=== PATIENT | female | born 1960 | race Caucasian/White ===

== ENCOUNTER 2017-10-27 15:38 | Emergency (ER) | payer MEDICAID ==
--- NOTE | 2017-10-27 16:25 | EDM.PDOC ---
ED HPI GENERAL MEDICAL PROBLEM - General Chief Complaint: Head Injury Stated Complaint: HEAD AND SHOULDER INJURY Time Seen by Provider: 10/27/17 15:38 Source of Information: Reports: Patient History Limitations: Reports: Physical Impairment - History of Present Illness INITIAL COMMENTS - FREE TEXT/NARRATIVE: 57 y.o.w.f came to the ed 2 days after she fell onto her left shoulder and right forehead without LOC. Pt take Oxycodon 3 time daily for other body aches. Is allergic to Motrin. No N/V/D or any other medical issues. She can not lift her left arm above the horizontal line, not able to tough her heard with her left hand. No other acute medical issues. BP 144/75 RR 17 Pulse ox 100% Temp 36.7 pulse 71. Onset Date: 10/24/17 Onset Time: 08:00 Duration: Day(s): Location: Reports: Face, Chest Quality: Reports: Ache, Burning, Dull, Pressure Severity: Mild Improves with: Reports: Rest Worsens with: Reports: Movement Context: Reports: Trauma Associated Symptoms: Reports: No Other Symptoms left shoulder and left knee Pain Score (Numeric/FACES): 8 - Related Data Allergies Allergy/AdvReac Type Severity Reaction Status Date / Time scopolamine Allergy Intermediate Rash Verified 10/27/17 17:20 tramadol Allergy Intermediate Swelling Verified 10/27/17 17:20 adhesive Allergy Mild red itchy Verified 10/27/17 17:20 ibuprofen [From Advil] Allergy Mild Swelling Verified 10/27/17 17:20 Home Meds: Home Meds Albuterol [Ventolin HFA] 2 puff INH Q6H PRN 11/29/12 [History] Calcium Carbonate/Vitamin D3 [Calcium 600 + Vit D Tablet] 1 tab PO DAILY [History] Cholecalciferol (Vitamin D3) [Vitamin D3] 1 tab PO DAILY 11/29/12 [History] DULoxetine HCl [Cymbalta] 60 mg PO DAILY 11/29/12 [History] Fluticasone/Salmeterol [Advair 500-50] 1 puff INH BID 11/29/12 [History] Lisinopril 10 mg PO DAILY 11/29/12 [History] Magnesium Oxide 500 mg PO BID 11/29/12 [History] Multivitamin [Multi-Vitamin Daily] 1 each PO DAILY 11/29/12 [History] Vit/Iron Fumarate/FA [ Tablet] 1 each PO DAILY 11/29/12 [ History] diphenhydrAMINE HCl [Diphenhydramine HCl] 25 mg PO BEDTIME PRN 11/29/12 [History ] Cyclobenzaprine [Flexeril] 10 mg PO TID 10/19/13 [History] Gabapentin [Neurontin] 400 mg PO DAILY 10/19/13 [History] Naratriptan [Amerge] 2.5 mg PO ASDIRECTED PRN 10/19/13 [History] traZODone 200 mg PO BEDTIME 10/19/13 [History] cephALEXin [Keflex] 500 mg PO Q8H #30 cap 12/05/13 [Rx] oxyCODONE HCl/Acetaminophen [oxyCODONE-Acetaminophen 5-325] 1 tab PO BID [History] Past Medical History - Past Health History Medical/Surgical History: Denies Medical/Surgical History ED ROS GENERAL - Review of Systems Review Of Systems: See Below Constitutional: Reports: No Symptoms HEENT: Reports: Other (head injury 3 days ago) Respiratory: Reports: No Symptoms Cardiovascular: Reports: No Symptoms Endocrine: Reports: No Symptoms GI/Abdominal: Reports: No Symptoms : Reports: No Symptoms Musculoskeletal: Reports: No Symptoms Skin: Reports: No Symptoms Neurological: Reports: No Symptoms Psychiatric: Reports: No Symptoms Hematologic/Lymphatic: Reports: No Symptoms Immunologic: Reports: No Symptoms ED EXAM, HEAD INJURY - Physical Exam Exam: See Below Exam Limited By: No Limitations General Appearance: Alert, WD/WN, Mild Distress Head: Normocephalic, Scalp Ecchymosis Eyes: Bilateral Eye: Normal Inspection Ears: Normal External Exam, Normal Canal, Hearing Grossly Normal, Normal TMs Nose: Normal Inspection, Normal Mucousa, No Blood Throat/Mouth: Normal Inspection, Normal Lips, Normal Gums, Normal Oropharynx, Normal Voice, No Airway Compromise Neck: Non-Tender, Full Range of Motion, Normal Alignment, Normal Inspection Respiratory: No Respiratory Distress, Lungs Clear, Normal Breath Sounds, No Accessory Muscle Use, Chest Non-Tender Cardiovascular: Normal Peripheral Pulses, Regular Rate, Rhythm, No Edema, No Gallop, No JVD, No Murmur, No Rub GI/Abdominal Exam: Normal Bowel Sounds, Soft, Non-Tender, No Organomegaly, No Distention, No Abnormal Bruit, No Mass, Pelvis Stable (Female) Exam: Deferred Rectal (Female) Exam: Deferred Back Exam: Normal Inspection Extremities: Normal Inspection, Limited Range of Motion (of left shoulder, does no go above the horizonal line) 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 Pt take Oxycodon 3 time daily for other body aches. Is allergic to Motrin. No N/V/D or any other medical issues. She can not lift her left arm above the horizontal line, not able to tough her heard with her left hand. No other acute medical issues. BP 144/75 RR 17 Pulse ox 100% Temp 36.7 pulse 71. PE: WNWD W F with left shoulder pain with LROM, right forehead SQ hematoma, minimal Imaging: Left Shoulder: NAD Impression: Left shoulder pain after a fall, poss rotator cuff injury Tx: ICE, Pt currently taking Oxycodon for chronic pain (home), [place] Reexam: Improved Plan: D/C with instruction Last Recorded V/S: Last Vital Signs Temp 36.8 C 10/27/17 15:40 Pulse 69 10/27/17 16:15 Resp 18 10/27/17 17:05 BP 131/74 10/27/17 17:05 Pulse Ox 100 10/27/17 17:05 Departure - Departure Time of Disposition: 16:59 Disposition: Home, Self-Care 01 Condition: Good Clinical Impression: Fall, Head injury Shoulder pain, left Qualifiers: Chronicity: unspecified Qualified Code(s): M25.512 - Pain in left shoulder - Discharge Information *PRESCRIPTION DRUG MONITORING PROGRAM REVIEWED*: Yes *COPY OF PRESCRIPTION DRUG MONITORING REPORT IN PATIENT MALINA: Yes Instructions: Shoulder Pain, [id number] Referrals: [facility] OTOLARYNGOLOGY NURSE [Primary Care Provider] - Forms: ED Department Discharge Additional Instructions: Please apply ice to the affected area for 20-30 minutes 4-6 times per day, please follow up with your regular MD for further evaluation and possible MRI left shoulder to rule out rotator cough injury. Please come back if your symptoms get worse acutely
[2017-10-27 17:08] VITALS: BP 131/74
--- NOTE | 2017-10-28 11:07 | CR ---
INDICATION: Fall - trauma. LEFT SHOULDER, COMPLETE: Four images of the left shoulder were obtained, 2017, in three projections and were compared with 01/21/2014, revealing interval surgery with an anchor in the humeral metaphysis. Overall demineralization is suggested, which may be on the basis of osteoporosis but should be correlated clinically. The AC and glenohumeral joints appear to be intact. A fracture or dislocation was not identified. IMPRESSION: 1. No acute fracture or dislocation. 2. Possible osteoporosis - correlate clinically. 3. Postsurgical change. MTDD
== END 2017-10-27 17:18 | disposition home or self-care (01) ==
LOC: FB.ED 15:38
DX: S09.90XA Unspecified injury of head, initial encounter (principal); S00.83XA Contusion of other part of head, initial encounter; S00.03XA Contusion of scalp, initial encounter; M25.512 Pain in left shoulder; Z79.899 Other long term (current) drug therapy; Z88.5 Allergy status to narcotic agent; Z88.6 Allergy status to analgesic agent; Z91.09 Other allergy status, other than to drugs and biological substances; Z88.8 Allergy status to other drugs, medicaments and biological substances; W19.XXXA Unspecified fall, initial encounter
CPT/HCPCS: 73030-LT; 99283

== ENCOUNTER 2019-11-15 23:35 | Inpatient (IN) | payer MEDICAID ==
[2019-11-16] MEDS ORDERED: Morphine 4 MG/ML VIAL IVPUSH ONE (00:12)
[2019-11-16] MEDS ORDERED: Ondansetron 4 MG/2 ML SDV IVPUSH ONE ×2 (00:12→01:07)
[2019-11-16] MEDS ORDERED: Sodium Chloride 0.9% 1,000 ML IV SCH (00:15)
--- NOTE | 2019-11-16 00:16 | EDM.PDOC ---
ED HPI GENERAL MEDICAL PROBLEM - General Chief Complaint: Abdominal Pain Time Seen by Provider: 11/16/19 00:14 Source of Information: Reports: Patient History Limitations: Reports: No Limitations - History of Present Illness INITIAL COMMENTS - FREE TEXT/NARRATIVE: Olga is a 59 yo female who presented with sudden onset of lower abdominal pain and vomiting. Started about 2 hrs prior to arrival. Unable to keep anything down,and nothing is helping.She was brought in buy [facility].She has a previous surgical history that includes Gastric bypass,cholecystectomy Abdomen Pain Score (Numeric/FACES): 10 - Related Data Allergies Allergy/AdvReac Type Severity Reaction Status Date / Time scopolamine Allergy Intermediate Rash Verified 10/27/17 17:20 tramadol Allergy Intermediate Swelling Verified 10/27/17 17:20 adhesive Allergy Mild red itchy Verified 10/27/17 17:20 ibuprofen [From Advil] Allergy Mild Swelling Verified 10/27/17 17:20 Home Meds: Home Meds Albuterol [Ventolin HFA] 2 puff INH Q6H PRN 11/29/12 [History] Fluticasone/Salmeterol [Advair 500-50] 1 puff INH BID 11/29/12 [History] Lisinopril 40 mg PO DAILY 11/29/12 [History] Multivitamin [Multi-Vitamin Daily] 1 each PO DAILY 11/29/12 [History] Vit/Iron Fum/Folic AC [ Tablet] 1 each PO DAILY 11/29/12 [H istory] diphenhydrAMINE HCL [Diphenhydramine HCl] 25 mg PO BID PRN 11/29/12 [History] Acetaminophen 1,000 mg PO Q8HR PRN 11/16/19 [History] Calcium Carb, Citrate/Vit D3 [Calcium + D3 ER Tablet] 1,200 mg PO DAILY 11/16/19 [History] Cholecalciferol (Vitamin D3) [Vitamin D] 2,000 units PO DAILY 11/16/19 [History] Citalopram Hydrobromide [Celexa] 20 mg PO DAILY 11/16/19 [History] Doxepin HCl [Doxepin] 100 mg PO DAILY 11/16/19 [History] EPINEPHrine [Epinephrine] 0.3 mg IM ONETIME PRN 11/16/19 [History] Famotidine 20 mg PO BID 11/16/19 [History] Lidocaine [Salonpas] 4 patch TOP DAILY PRN 11/16/19 [History] Magnesium Oxide [Magnesium] 500 mg PO BID 11/16/19 [History] Milnacipran [Savella] 75 mg PO BID 11/16/19 [History] Montelukast [Singulair] 10 mg PO DAILY 11/16/19 [History] Morphine [MS Contin] 15 mg PO DAILY 11/16/19 [History] Onabotulinumtoxina [Botox Cosmetic] 100 unit IM ASDIRECTED 11/16/19 [History] Oxybutynin Chloride [Ditropan Xl] 10 mg PO DAILY 11/16/19 [History] Phentermine HCl 15 mg PO DAILY 11/16/19 [History] oxyCODONE HCl/Acetaminophen [Percocet 10-325 mg Tablet] 1 tab PO Q8H PRN 11/16/19 [History] tiZANidine [Zanaflex] 4 mg PO DAILY PRN 11/16/19 [History] Past Medical History - Past Health History Medical/Surgical History: Denies Medical/Surgical History HEENT History: Reports: 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 Social & Family History - Family History Family Medical History: Noncontributory - Caffeine Use Caffeine Use: Reports: Coffee, Soda ED ROS GENERAL - Review of Systems Review Of Systems: Comprehensive ROS is negative, except as noted in HPI. ED EXAM, GI/ABD - Physical Exam Exam: See Below Exam Limited By: No Limitations General Appearance: Alert, WD/WN Eyes: Bilateral: Normal Appearance, EOMI Throat/Mouth: Normal Inspection Head: Atraumatic Neck: Normal Inspection Respiratory/Chest: No Respiratory Distress Course - Vital Signs Last Recorded V/S: Last Vital Signs Temp 98.2 F 11/16/19 00:05 Pulse 97 11/16/19 03:30 Resp 18 11/16/19 03:30 BP 139/85 11/16/19 03:30 Pulse Ox 98 11/16/19 03:30 - Orders/Labs/Meds Orders: Active Orders 24 hr Category Date Time Status Patient Status [ADT] Routine ADT 11/16/19 02:44 Active Intake and Output [RC] 06,14,22 Care 11/16/19 02:45 Active Oxygen Therapy [RC] PRN Care 11/16/19 02:44 Active VTE/DVT Education [RC] Per Unit Routine Care 11/16/19 02:44 Active Vital Signs [RC] 00,04,08,12,16,20 Care 11/16/19 02:44 Active Nothing per Oral After Midnight Diet [DIET] Diet 11/16/19 Breakfast Active Abdomen Pelvis w Cont [CT] Stat Exams 11/16/19 00:12 Taken UA W/MICROSCOPIC [URIN] Stat Lab 11/16/19 00:12 Ordered HYDROmorphone [Dilaudid] Med 11/16/19 02:44 Active 0.5 mg IVPUSH Q2H PRN Ondansetron [Zofran] Med 11/16/19 02:44 Active 4 mg IV Q4H PRN Sodium Chloride 0.9% [Normal Saline] 1,000 ml Med 11/16/19 00:15 Active IV ASDIRECTED Sodium Chloride 0.9% [Normal Saline] 1,000 ml Med 11/16/19 02:45 Active IV ASDIRECTED Resuscitation Status Routine Resus Stat 11/16/19 02:44 Ordered Medication Orders Hydromorphone HCl (Dilaudid) 0.5 mg IVPUSH Q2H PRN PRN Reason: Pain (severe 7-10) Last Admin: 11/16/19 06:16 Dose: 0.5 mg Documented by: JACQUI Sodium Chloride (Normal Saline) 1,000 mls @ 150 mls/hr IV ASDIRECTED [facility] Last Admin: 11/16/19 00:30 Dose: 150 mls/hr Documented by: VALENTINE Sodium Chloride (Normal Saline) 1,000 mls @ 125 mls/hr IV ASDIRECTED [facility] Ondansetron HCl (Zofran) 4 mg IV Q4H PRN PRN Reason: Nausea/Vomiting Last Admin: 11/16/19 06:16 Dose: 4 mg Documented by: JACQUI Labs: Laboratory Tests 11/16/19 11/16/19 11/16/19 Range/Units 00:45 00:45 00:45 WBC 19.0 H (4.5-12.0) X10-3/uL RBC 4.91 (3.23-5.20) x10(6)uL Hgb 14.9 (11.5-15.5) g/dL Hct 46.2 (30.0-51.3) % MCV 94.1 (80-96) fL MCH 30.4 (27.7-33.6) pg MCHC 32.3 (32.2-35.4) g/dL RDW 12.6 (11.5-15.5) % Plt Count 291 (125-369) X10(3)uL MPV 8.9 (7.4-10.4) fL Add Manual Diff Yes Neutrophils % (Manual) 76 (46-82) % Band Neutrophils % 4 (0-6) % Lymphocytes % (Manual) 15 (13-37) % Monocytes % (Manual) 5 (4-12) % Sodium 144 (135-145) mmol/L Potassium 3.3 L (3.5-5.3) mmol/L Chloride 104 (100-110) mmol/L Carbon Dioxide 27 (21-32) mmol/L BUN 28 H (7-18) mg/dL Creatinine 1.0 (0.55-1.02) mg/dL Est Cr Clr Drug Dosing TNP Estimated GFR (MDRD) 57 L (>60) BUN/Creatinine Ratio 28.0 H (9-20) Glucose 194 H (80-116) mg/dL Calcium 9.6 (8.6-10.2) mg/dL Total Bilirubin 0.4 (0.1-1.3) mg/dL AST 43 H (5-25) IU/L ALT 66 H (12-36) U/L Alkaline Phosphatase 170 H (56-112) IU/L C-Reactive Protein < 0.2 L (0.5-0.9) mg/dL Total Protein 7.9 (6.0-8.0) g/dL Albumin 4.1 (3.2-4.6) g/dL Globulin 3.8 g/dL Albumin/Globulin Ratio 1.1 Lipase > 1500 H (73-393) U/L SARS Virus RNA (PCR) (NEGATIVE) 11/16/19 Range/Units 02:47 WBC (4.5-12.0) X10-3/uL RBC (3.23-5.20) x10(6)uL Hgb (11.5-15.5) g/dL Hct (30.0-51.3) % MCV (80-96) fL MCH (27.7-33.6) pg MCHC (32.2-35.4) g/dL RDW (11.5-15.5) % Plt Count (125-369) X10(3)uL MPV (7.4-10.4) fL Add Manual Diff Neutrophils % (Manual) (46-82) % Band Neutrophils % (0-6) % Lymphocytes % (Manual) (13-37) % Monocytes % (Manual) (4-12) % Sodium (135-145) mmol/L Potassium (3.5-5.3) mmol/L Chloride (100-110) mmol/L Carbon Dioxide (21-32) mmol/L BUN (7-18) mg/dL Creatinine (0.55-1.02) mg/dL Est Cr Clr Drug Dosing Estimated GFR (MDRD) (>60) BUN/Creatinine Ratio (9-20) Glucose (80-116) mg/dL Calcium (8.6-10.2) mg/dL Total Bilirubin (0.1-1.3) mg/dL AST (5-25) IU/L ALT (12-36) U/L Alkaline Phosphatase (56-112) IU/L C-Reactive Protein (0.5-0.9) mg/dL Total Protein (6.0-8.0) g/dL Albumin (3.2-4.6) g/dL Globulin g/dL Albumin/Globulin Ratio Lipase (73-393) U/L SARS Virus RNA (PCR) Negative (NEGATIVE) Meds: Medications Generic Name Dose Route Start Last Admin Trade Name Freq PRN Reason Stop Dose Admin Hydromorphone HCl 0.5 mg 11/16/19 02:44 11/16/19 06:16 Dilaudid IVPUSH 0.5 mg Q2H PRN Administration Pain (severe 7-10) Sodium Chloride 1,000 mls @ 150 mls/hr 11/16/19 00:15 11/16/19 00:30 Normal Saline IV 150 mls/hr ASDIRECTED ANT Administration Sodium Chloride 1,000 mls @ 125 mls/hr 11/16/19 02:45 Normal Saline IV ASDIRECTED ANT Ondansetron HCl 4 mg 11/16/19 02:44 11/16/19 06:16 Zofran IV 4 mg Q4H PRN Administration Nausea/Vomiting Discontinued Medications Generic Name Dose Route Start Last Admin Trade Name Dawitq PRN Reason Stop Dose Admin Diatrizoate Meglum/Diatrizoate Sod 30 ml 11/16/19 00:19 Gastrografin 37% PO 11/16/19 00:20 . DIRECTED ONE Hydromorphone HCl 2 mg 11/16/19 01:07 11/16/19 01:21 Dilaudid IVPUSH 11/16/19 01:08 2 mg ONETIME ONE Administration Iopamidol 100 ml 11/16/19 00:19 11/16/19 01:49 Isovue-370 (76%) IV 11/16/19 00:20 85 ml . DIRECTED ONE Administration Morphine Sulfate 4 mg 11/16/19 00:12 11/16/19 00:33 Morphine IVPUSH 11/16/19 00:13 4 mg ONETIME ONE Administration Ondansetron HCl 4 mg 11/16/19 00:12 11/16/19 00:33 Zofran IVPUSH 11/16/19 00:13 4 mg ONETIME ONE Administration Ondansetron HCl 4 mg 11/16/19 01:07 11/16/19 01:21 Zofran IVPUSH 11/16/19 01:08 4 mg ONETIME ONE Administration Departure - Departure Time of Disposition: 06:34 Disposition: Still A Patient 30 Clinical Impression: Small bowel obstruction - Discharge Information Sepsis Event Note (ED) - Evaluation Sepsis Screening Result: No Definite Risk - Focused Exam Vital Signs: Vital Signs Temp Pulse Resp BP Pulse Ox Pulse Ox 11/16/19 02:15 97 96 11/16/19 02:12 89 L 11/16/19 01:54 105 H 27 H 157/71 H 97 11/16/19 01:27 28 H 151/100 H 92 L 11/16/19 00:05 98.2 F 80 25 H 159/103 H 100 - Problem List & Annotations (1) Small bowel obstruction SNOMED Code(s): 164951686 Code(s): K56.609 - UNSP INTESTNL OBST, UNSP TO PARTIAL VERSUS COMPLETE OBST Status: Acute Current Visit: Yes (2) Elevated lipase SNOMED Code(s): 415366436 Code(s): R74.8 - ABNORMAL LEVELS OF OTHER SERUM ENZYMES Status: Acute Current Visit: Yes - Problem List Review Problem List Initiated/Reviewed/Updated: Yes - My Orders Last 24 Hours: My Active Orders 11/16/19 00:12 Abdomen Pelvis w Cont [CT] Stat UA W/MICROSCOPIC [URIN] Stat 11/16/19 00:15 Sodium Chloride 0.9% [Normal Saline] 1,000 ml IV ASDIRECTED 11/16/19 02:44 Patient Status [ADT] Routine Oxygen Therapy [RC] PRN VTE/DVT Education [RC] Per Unit Routine Vital Signs [RC] 00,04,08,12,16,20 HYDROmorphone [Dilaudid] 0.5 mg IVPUSH Q2H PRN Ondansetron [Zofran] 4 mg IV Q4H PRN Resuscitation Status Routine 11/16/19 02:45 Intake and Output [RC] 06,14,22 Sodium Chloride 0.9% [Normal Saline] 1,000 ml IV ASDIRECTED 11/16/19 Breakfast Nothing per Oral After Midnight Diet [DIET] - Assessment/Plan Last 24 Hours: My Active Orders 11/16/19 00:12 Abdomen Pelvis w Cont [CT] Stat UA W/MICROSCOPIC [URIN] Stat 11/16/19 00:15 Sodium Chloride 0.9% [Normal Saline] 1,000 ml IV ASDIRECTED 11/16/19 02:44 Patient Status [ADT] Routine Oxygen Therapy [RC] PRN VTE/DVT Education [RC] Per Unit Routine Vital Signs [RC] 00,04,08,12,16,20 HYDROmorphone [Dilaudid] 0.5 mg IVPUSH Q2H PRN Ondansetron [Zofran] 4 mg IV Q4H PRN Resuscitation Status Routine 11/16/19 02:45 Intake and Output [RC] 06,14,22 Sodium Chloride 0.9% [Normal Saline] 1,000 ml IV ASDIRECTED 11/16/19 Breakfast Nothing per Oral After Midnight Diet [DIET] Plan: CT showed partial small bowel obstruction. Will admit for NG tube,NPO and Fluid resuscitation. I consulted Dr Garcia.IV Zofran and Dilaudid for pain control
[2019-11-16] MEDS ORDERED: Diatrizoate Meglumine/Diatrizoate Sodium 37% 30 ML Bottle PO ONE (00:19)
[2019-11-16] MEDS ORDERED: Iopamidol 755 Mg/ML 100 ML Bottle IV ONE (00:19)
[2019-11-16] MEDS ORDERED: HYDROmorphone 2 MG/ML SDV IVPUSH ONE (01:07)
[2019-11-16] MEDS: Ondansetron 4 MG/2 ML SDV IV PRN ×5 (06:16→22:58)
[2019-11-16] MEDS: HYDROmorphone 2 MG/ML SDV IVPUSH PRN ×5 (06:16→22:51)
[2019-11-16] MEDS: Sodium Chloride 0.9% 1,000 ML IV SCH ×2 (08:56→18:13)
[2019-11-16] MEDS: Pantoprazole 40 MG Vial IVPUSH SCH (13:44)
[2019-11-16] MEDS: Sodium Chloride 0.9% 10 ML Syringe FLUSH PRN ×2 (14:16→23:03)
--- NOTE | 2019-11-16 18:32 | HP ---
ADMISSION DATE: 11/16/2019 REASON FOR ADMISSION: Complicated abdominal pain, bowel obstruction. HISTORY OF PRESENT ILLNESS: Olga Grossman is a 59-year-old female admitted through [facility] on the morning of 11/16/2019. Admitted with complicated abdominal pain. Had a peculiar spicy piece of steak and began with severe complicated abdominal pain. The pain was epigastric, severe, vacillating, and problematic in nature. She was seen by the ER physician, found to have a small-bowel obstruction, admitted to the hospital for treatment and intervention. Traveled by ambulance from [place]. Has been seen by Dr. Jorgito Garcia in the interim. MEDICATIONS: Present daily medications include, 1. Albuterol 2 puffs q.i.d. p.r.n. 2. Calcium plus vitamin D3. 3. Citalopram 20 mg 1 p.o. daily. 4. Diphenhydramine 25 b.i.d. 5. Doxepin 100 mg p.o. at bedtime, sleep enhancement. 6. Famotidine 20 mg 1 p.o. b.i.d. GERD. 7. Advair 50/500 one puff b.i.d. 8. Lisinopril 40 mg p.o. daily blood pressure. 9. Magnesium oxide 500 mg 1 p.o. daily nutrition. 10.Savella 75 mg b.i.d. 11.Singulair 10 mg 1 p.o. at bedtime asthma. 12.Morphine 50 mg daily chronic pain. 13.Oxybutynin 10 mg 1 p.o. daily bladder. 14.Percocet 10/325 one q.8 hours p.r.n. for pain. 15.Phentermine 50 mg 1 p.o. daily weight loss. 16. vitamin 1 p.o. daily nutrition. 17.Zanaflex 4 mg p.o. q.12 muscle relaxant. ALLERGIES: Scopolamine patch, tramadol, adhesives, and Advil. PAST MEDICAL HISTORY: Significant for previous gastric bypass surgery, incidental cholecystectomy, previous neck surgery for unstable neck, bilateral shoulder surgery, and spur removal in right foot. Fractures none. Chronic illnesses noted above. GYNECOLOGICAL HISTORY: 3, para 3 female, lost one baby with stillborn. SOCIAL HISTORY: Resides in [place]. Lives with 60 years of age. 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 Nonsmoker. Secondhand smoke. No alcohol. No illicit drug use. REVIEW OF SYSTEMS: CONSTITUTIONAL: Please see HPI. EYES: Sees well. Wears corrective eyeglasses. OROPHARYNX: Upper plates. CV: Denies chest pain, palpitation, or dyspnea. RESPIRATORY: No chronic cough, wheeze, or congestion. GI: Please see HPI. : Mild bladder control. SKIN: No lesions, eruptions, or moles. ENDOCRINE: No excessive thirst or urination. ALLERGIES: Noted. NEUROLOGIC: Denies headache. Does have chronic fatigue syndrome, fibromyalgia. PHYSICAL EXAMINATION: VITAL SIGNS: Stable and documented. GENERAL: Young lady, cooperative, conversant, gives a good history. HEENT: Funduscopic benign. Bright TMs. Clear nasal discharge. Mouth and oropharynx clear. NECK: Benign. Thyroid small. Surgical scar on right side. CHEST: Clear in all lung noyola. No adventitious sounds. HEART: No ectopy or murmur. ABDOMEN: Upper quadrant surgical scar well healed. No hepatosplenomegaly. Tender epigastric. Decreased bowel sounds. and RECTAL: Differed. EXTREMITIES: Well perfused. NEUROMUSCULAR: Intact. LABORATORY STUDIES: White count 19,100, repeat 13,600. Normal differential. Electrolytes satisfactory. GFR 57, went to 60. Moderately elevated liver functions, AST, ALT, alkaline phosphatase. Lipase of 1500. CT abdomen by report, bowel obstruction. ASSESSMENT: Acute bowel obstruction, likely adhesive disease. PLAN: Continue conservative therapy. NG had been placed, discontinued by Dr. Garcia. Continue IV fluids. Ice chips to be allowed. We will repeat pancreatic enzymes. /[id number] /ADAM
--- NOTE | 2019-11-16 18:40 | CONS ---
DATE OF CONSULTATION: 11/16/2019 HISTORY OF PRESENT ILLNESS: This 59-year-old female was brought to the emergency room last night by ambulance after developing rather sudden onset of mid abdominal pain. She had some episodes of vomiting associated with this. She was noted to have significant abdominal tenderness upon presentation and was evaluated with a CT scan of the abdomen and pelvis. Findings were felt consistent with a partial mid small-bowel obstruction, not related to the regions of her previous surgery of gastric bypass. The patient currently states that her abdominal pain has improved by about 50% since admission. She is no longer having nausea or the desire to vomit. She has had 2 bowel movements since she has been in the hospital and states that she is passing flatus. Pain remains primarily in the mid abdomen, but somewhat diffuse and it is a constant pain. Other diagnostic data includes laboratory studies with admitting serum white blood cell count of 19,000, but a few hours later this was repeated and noted to be down to 13,600. Her hemoglobin is stable. BUN is slightly elevated. Liver functions are mildly elevated, but her lipase was markedly elevated at greater than 15,000. PAST MEDICAL HISTORY: Includes prior surgeries to include gastric bypass, but also prior cholecystectomy. She carries diagnoses of chronic back pain and fibromyalgia. MEDICATIONS: Reviewed and as identified in her electronic medical record. FAMILY HISTORY: Noncontributory. REVIEW OF SYSTEMS: Shows no recent problems with shortness of breath or cough. No unexplained fever. The patient has generally not been having any GI concerns recently. She does note that just before this pain started she ate chicken fried steak, which she has never had before. PHYSICAL EXAMINATION: VITAL SIGNS: Temperature is 97.4, blood pressure is 139/85, pulse 97, weight is 226 pounds. GENERAL: The patient is an adult female, in no acute distress. HEENT: Head is normocephalic. No scleral icterus. No cervical masses. HEART: Regular with occasional ectopic beat. LUNGS: Clear. ABDOMEN: Shows mild distention. There is diffuse tenderness to direct palpation, most significant in the central portion of the abdomen. I do not feel any abdominal masses. EXTREMITIES: Show no calf tenderness or ankle edema. IMPRESSION: 1. Partial small bowel obstruction, likely secondary to adhesions. 2. History of gastric bypass. 3. Fibromyalgia. 4. Elevated lipase. RECOMMENDATIONS: Advised observation with continued IV hydration and encourage the patient to ambulate. NG tube output has been minimal as expected with gastric bypass, and as this has been very uncomfortable for her and the patient has demonstrated bowel function while she has been in the hospital, we will remove the NG tube and have her remain n.p.o. /[id number] HOOD/ADAM
[2019-11-17] MEDS: HYDROmorphone 2 MG/ML SDV IVPUSH PRN ×5 (02:33→21:29)
[2019-11-17] MEDS: Sodium Chloride 0.9% 1,000 ML IV SCH ×3 (02:36→19:21)
[2019-11-17] MEDS: Ondansetron 4 MG/2 ML SDV IV PRN ×2 (02:58→08:59)
[2019-11-17] MEDS: Pantoprazole 40 MG Vial IVPUSH SCH (08:06)
--- NOTE | 2019-11-17 12:16 | PCM.SURGPN ---
- General Info Date of Service: 11/17/19 Admission Diagnosis/Problem: Abdominal pain Functional Status: Reports: Other (pain a little better today but still persists) - Review of Systems Pulmonary: Reports: No Symptoms Gastrointestinal: Reports: Flatus, Nausea (gets nausea with Dilaudid IV), Vomiting (some emesis last night), Other (has passed several stools including loose stool this am) Genitourinary: Reports: No Symptoms Neurological: Reports: Other (still c/o headache) - Patient Data Vitals - Most Recent: Last Vital Signs Temp 98.7 F 11/17/19 07:40 Pulse 53 L 11/17/19 07:40 Resp 18 11/17/19 07:40 BP 142/76 H 11/17/19 07:40 Pulse Ox 94 L 11/17/19 07:40 Weight - Most Recent: 227 lb 14.4 oz I&O - Last 24 Hours: Intake & Output 11/16/19 11/17/19 11/17/19 22:59 06:59 14:59 Intake Total 1831 888 Output Total 200 200 Balance 1631 688 Lab Results Last 24 Hrs: Laboratory Results - last 24 hr 11/17/19 11/17/19 11/17/19 Range/Units 06:15 06:15 06:15 WBC 11.0 (4.5-12.0) X10-3/uL RBC 4.88 (3.23-5.20) x10(6)uL Hgb 14.8 (11.5-15.5) g/dL Hct 46.3 (30.0-51.3) % MCV 94.8 (80-96) fL MCH 30.4 (27.7-33.6) pg MCHC 32.1 L (32.2-35.4) g/dL RDW 12.7 (11.5-15.5) % Plt Count 246 (125-369) X10(3)uL Amylase 21 L (25-115) U/L Lipase 67 L (73-393) U/L Med Orders - Current: Current Medications Famotidine (Pepcid) 20 mg IVPUSH BID ANT Hydromorphone HCl (Dilaudid) 0.5 mg IVPUSH Q2H PRN PRN Reason: Pain (severe 7-10) Last Admin: 11/17/19 09:35 Dose: 0.5 mg Documented by: Sodium Chloride (Normal Saline) 1,000 mls @ 150 mls/hr IV ASDIRECTED [facility] Last Admin: 11/16/19 00:30 Dose: 150 mls/hr Documented by: Sodium Chloride (Normal Saline) 1,000 mls @ 125 mls/hr IV ASDIRECTED [facility] Last Admin: 11/17/19 11:01 Dose: 125 mls/hr Documented by: Ondansetron HCl (Zofran) 4 mg IV Q4H PRN PRN Reason: Nausea/Vomiting Last Admin: 11/17/19 08:59 Dose: 4 mg Documented by: Pantoprazole Sodium (Protonix Iv) 40 mg IVPUSH DAILY [facility] Last Admin: 11/17/19 08:06 Dose: 40 mg Documented by: Sodium Chloride (Saline Flush) 10 ml FLUSH ASDIRECTED PRN PRN Reason: IV Use Last Admin: 11/16/19 23:03 Dose: 10 ml Documented by: Discontinued Medications Diatrizoate Meglum/Diatrizoate Sod (Gastrografin 37%) 30 ml PO . DIRECTED ONE Stop: 11/16/19 00:20 Last Admin: 11/16/19 14:29 Dose: Not Given Documented by: Hydromorphone HCl (Dilaudid) 2 mg IVPUSH ONETIME ONE Stop: 11/16/19 01:08 Last Admin: 11/16/19 01:21 Dose: 2 mg Documented by: Iopamidol (Isovue-370 (76%)) 100 ml IV . DIRECTED ONE Stop: 11/16/19 00:20 Last Admin: 11/16/19 01:49 Dose: 85 ml Documented by: Morphine Sulfate (Morphine) 4 mg IVPUSH ONETIME ONE Stop: 11/16/19 00:13 Last Admin: 11/16/19 00:33 Dose: 4 mg Documented by: Ondansetron HCl (Zofran) 4 mg IVPUSH ONETIME ONE Stop: 11/16/19 00:13 Last Admin: 11/16/19 00:33 Dose: 4 mg Documented by: Ondansetron HCl (Zofran) 4 mg IVPUSH ONETIME ONE Stop: 11/16/19 01:08 Last Admin: 11/16/19 01:21 Dose: 4 mg Documented by: - Exam General: Alert Lungs: Normal Respiratory Effort GI/Abdominal Exam: Soft, Tender Physical Findings Comment:: X-ray of abdomen shows minimal small bowel gas without significant air fluid levels. Defunctionalized stomach has gas distension Sepsis Event Note - Evaluation Sepsis Screening Result: No Definite Risk - Focused Exam Vital Signs: Vital Signs Temp Pulse Resp BP Pulse Ox 11/17/19 07:40 98.7 F 53 L 18 142/76 H 94 L 11/17/19 05:00 98.4 F 81 20 138/77 96 11/17/19 02:00 98.7 F 73 18 146/74 H 96 - Problem List Review Problem List Initiated/Reviewed/Updated: Yes - My Orders Last 24 Hours: Active Orders 24 hr Category Date Time Status Abdomen 2V AP Flat Upright [CR] Routine Exams 11/17/19 08:56 Taken Famotidine [Pepcid] Med 11/17/19 21:00 Active 20 mg IVPUSH BID Pantoprazole [ProTONIX IV] Med 11/16/19 14:00 Active 40 mg IVPUSH DAILY Medication Orders Famotidine (Pepcid) 20 mg IVPUSH BID [facility] Hydromorphone HCl (Dilaudid) 0.5 mg IVPUSH Q2H PRN PRN Reason: Pain (severe 7-10) Last Admin: 11/17/19 09:35 Dose: 0.5 mg Documented by: Admin: 11/17/19 05:52 Dose: 0.5 mg Documented by: Admin: 11/17/19 02:33 Dose: 0.5 mg Documented by: Admin: 11/16/19 22:51 Dose: 0.5 mg Documented by: Admin: 11/16/19 19:31 Dose: 0.5 mg Documented by: Admin: 11/16/19 14:14 Dose: 0.5 mg Documented by: Admin: 11/16/19 10:16 Dose: 0.5 mg Documented by: Admin: 11/16/19 06:16 Dose: 0.5 mg Documented by: JACQUI Sodium Chloride (Normal Saline) 1,000 mls @ 150 mls/hr IV ASDIRECTED ANT Last Admin: 11/16/19 00:30 Dose: 150 mls/hr Documented by: VALENTINE Sodium Chloride (Normal Saline) 1,000 mls @ 125 mls/hr IV ASDIRECTED [facility] Last Admin: 11/17/19 11:01 Dose: 125 mls/hr Documented by: Infusion: 11/17/19 10:36 Dose: 125 mls/hr Documented by: Admin: 11/17/19 02:36 Dose: 125 mls/hr Documented by: Infusion: 11/17/19 02:13 Dose: 125 mls/hr Documented by: Admin: 11/16/19 18:13 Dose: 125 mls/hr Documented by: Infusion: 11/16/19 16:56 Dose: 125 mls/hr Documented by: Admin: 11/16/19 08:56 Dose: 125 mls/hr Documented by: ALICE Ondansetron HCl (Zofran) 4 mg IV Q4H PRN PRN Reason: Nausea/Vomiting Last Admin: 11/17/19 08:59 Dose: 4 mg Documented by: Admin: 11/17/19 02:58 Dose: 4 mg Documented by: Admin: 11/16/19 22:58 Dose: 4 mg Documented by: Admin: 11/16/19 18:52 Dose: 4 mg Documented by: Admin: 11/16/19 14:15 Dose: 4 mg Documented by: Admin: 11/16/19 10:16 Dose: 4 mg Documented by: Admin: 11/16/19 06:16 Dose: 4 mg Documented by: JACQUI Pantoprazole Sodium (Protonix Iv) 40 mg IVPUSH DAILY [facility] Last Admin: 11/17/19 08:06 Dose: 40 mg Documented by: Admin: 11/16/19 13:44 Dose: 40 mg Documented by: ISAC Sodium Chloride (Saline Flush) 10 ml FLUSH ASDIRECTED PRN PRN Reason: IV Use Last Admin: 11/16/19 23:03 Dose: 10 ml Documented by: Admin: 11/16/19 14:16 Dose: 10 ml Documented by: ISAC - Assessment Assessment (Free Text/Narrative):: Abdominal pain - SBO component appears to be resolving with return of GI function Possible peptic ulcer as patient admits to increased NSAID use recently Labs (including Lipase) have returned to normal - Plan Plan (Free Text/Narrative):: Gave small amount of clear liquids at patient request On anti ulcer medication encouraged ambulation
[2019-11-17] MEDS: Menthol/Methyl Salicylate 85 GM Tube TOP PRN ×2 (15:31→21:29)
[2019-11-17] MEDS: Famotidine 20 MG/2 ML SDV IVPUSH SCH (21:28)
[2019-11-18] MEDS: Sodium Chloride 0.9% 1,000 ML IV SCH ×3 (03:30→20:44)
[2019-11-18] MEDS: HYDROmorphone 2 MG/ML SDV IVPUSH PRN ×2 (03:42→12:55)
[2019-11-18] MEDS: Famotidine 20 MG/2 ML SDV IVPUSH SCH ×2 (09:09→22:00)
--- NOTE | 2019-11-18 11:04 | PCM.SURGPN ---
- General Info Date of Service: 11/18/19 Admission Diagnosis/Problem: Abdominal pain Functional Status: Reports: Other (Pain much improved and now minimal) - Review of Systems Pulmonary: Reports: No Symptoms Cardiovascular: Reports: No Symptoms Gastrointestinal: Reports: Flatus, Other (continues to pass stools including some bile color) Genitourinary: Reports: No Symptoms Neurological: Reports: Other (More awake and conversive today) - Patient Data Vitals - Most Recent: Last Vital Signs Temp 98.0 F 11/18/19 04:00 Pulse 86 11/18/19 04:00 Resp 16 11/18/19 04:00 BP 131/64 11/18/19 04:00 Pulse Ox 98 11/18/19 04:00 Weight - Most Recent: 227 lb 14.4 oz I&O - Last 24 Hours: Intake & Output 11/17/19 11/18/19 11/18/19 22:59 06:59 14:59 Intake Total 338 1067 Output Total 100 350 Balance 238 717 Med Orders - Current: Current Medications Famotidine (Pepcid) [address] [facility] Last Admin: 11/18/19 09:09 Dose: 20 mg Documented by: Hydromorphone HCl (Dilaudid) 0.5 mg IVPUSH Q2H PRN PRN Reason: Pain (severe 7-10) Last Admin: 11/18/19 03:42 Dose: 0.5 mg Documented by: Sodium Chloride (Normal Saline) 1,000 mls @ 150 mls/hr IV ASDIRECTED [facility] Last Admin: 11/16/19 00:30 Dose: 150 mls/hr Documented by: Sodium Chloride (Normal Saline) 1,000 [facility]ls [facility] Admin: 11/18/19 03:30 Dose: 125 mls/hr Documented by: Methyl Salicylate (Icy Hot Cream) 0 gm TOP BID PRN PRN Reason: BACK PAIN Last Admin: 11/17/19 21:29 Dose: 1 applic Documented by: Ondansetron HCl (Zofran) 4 mg IV Q4H PRN PRN Reason: Nausea/Vomiting Last Admin: 11/17/19 08:59 Dose: 4 mg Documented by: Sodium Chloride (Saline Flush) 10 ml FLUSH ASDIRECTED PRN PRN Reason: IV Use Last Admin: 11/16/19 23:03 Dose: 10 ml Documented by: Discontinued Medications Diatrizoate Meglum/Diatrizoate Sod (Gastrografin 37%) 30 ml PO . DIRECTED ONE Stop: 11/16/19 00:20 Last Admin: 11/16/19 14:29 Dose: Not Given Documented by: Hydromorphone HCl (Dilaudid) 2 mg IVPUSH ONETIME ONE Stop: 11/16/19 01:08 Last Admin: 11/16/19 01:21 Dose: 2 mg Documented by: Iopamidol (Isovue-370 (76%)) 100 ml IV . DIRECTED ONE Stop: 11/16/19 00:20 Last Admin: 11/16/19 01:49 Dose: 85 ml Documented by: Morphine Sulfate (Morphine) 4 mg IVPUSH ONETIME ONE Stop: 11/16/19 00:13 Last Admin: 11/16/19 00:33 Dose: 4 mg Documented by: Ondansetron HCl (Zofran) 4 mg IVPUSH ONETIME ONE Stop: 11/16/19 00:13 Last Admin: 11/16/19 00:33 Dose: 4 mg Documented by: Ondansetron HCl (Zofran) 4 mg IVPUSH ONETIME ONE Stop: 11/16/19 01:08 Last Admin: 11/16/19 01:21 Dose: 4 mg Documented by: Pantoprazole Sodium (Protonix Iv) 40 mg IVPUSH DAILY ANT Last Admin: 11/17/19 08:06 Dose: 40 mg Documented by: - Exam General: Alert, Oriented Lungs: Normal Respiratory Effort Extremities: Normal Inspection Sepsis Event Note - Evaluation Sepsis Screening Result: No Definite Risk - Focused Exam Vital Signs: Vital Signs Temp Pulse Resp BP Pulse Ox 11/18/19 04:00 98.0 F 86 16 131/64 98 - Problem List Review Problem List Initiated/Reviewed/Updated: Yes - My Orders Last 24 Hours: Active Orders 24 hr Category Date Time Status Full Liquid Diet [DIET] Diet 11/18/19 Lunch Active Famotidine [Pepcid] Med 11/17/19 21:00 Active 20 mg IVPUSH BID Menthol/Methyl Salicylate [Icy Hot Cream] Med 11/17/19 12:46 Active 0 gm TOP BID PRN Medication Orders Famotidine (Pepcid) [address] [facility] Last Admin: 11/18/19 09:09 Dose: 20 mg Documented by: Admin: 11/17/19 21:28 Dose: 20 mg Documented by: LESTER Hydromorphone HCl (Dilaudid) 0.5 mg IVPUSH Q2H PRN PRN Reason: Pain (severe 7-10) Last Admin: 11/18/19 03:42 Dose: 0.5 mg Documented by: Admin: 11/17/19 21:29 Dose: 0.5 mg Documented by: Admin: 11/17/19 15:15 Dose: 0.5 mg Documented by: Admin: 11/17/19 09:35 Dose: 0.5 mg Documented by: Admin: 11/17/19 05:52 Dose: 0.5 mg Documented by: Admin: 11/17/19 02:33 Dose: 0.5 mg Documented by: Admin: 11/16/19 22:51 Dose: 0.5 mg Documented by: Admin: 11/16/19 19:31 Dose: 0.5 mg Documented by: Admin: 11/16/19 14:14 Dose: 0.5 mg Documented by: Admin: 11/16/19 10:16 Dose: 0.5 mg Documented by: Admin: 11/16/19 06:16 Dose: 0.5 mg Documented by: JACQUI Sodium Chloride (Normal Saline) 1,000 mls @ 150 mls/hr IV ASDIRECTED [facility] Last Admin: 11/16/19 00:30 Dose: 150 mls/hr Documented by: VALENTINE Sodium Chloride (Normal Saline) 1,000 mls @ 125 mls/hr IV ASDIRECTED [facility] Last Admin: 11/18/19 03:30 Dose: 125 mls/hr Documented by: Infusion: 11/18/19 03:21 Dose: 125 mls/hr Documented by: Admin: 11/17/19 19:21 Dose: 125 mls/hr Documented by: Infusion: 11/17/19 19:01 Dose: 125 mls/hr Documented by: Admin: 11/17/19 11:01 Dose: 125 mls/hr Documented by: Infusion: 11/17/19 10:36 Dose: 125 mls/hr Documented by: Admin: 11/17/19 02:36 Dose: 125 mls/hr Documented by: Infusion: 11/17/19 02:13 Dose: 125 mls/hr Documented by: Admin: 11/16/19 18:13 Dose: 125 mls/hr Documented by: Infusion: 11/16/19 16:56 Dose: 125 mls/hr Documented by: Admin: 11/16/19 08:56 Dose: 125 mls/hr Documented by: ALICE Methyl Salicylate (Icy Hot Cream) 0 gm TOP BID PRN PRN Reason: BACK PAIN Last Admin: 11/17/19 21:29 Dose: 1 applic Documented by: Admin: 11/17/19 15:31 Dose: 1 applic Documented by: ISAC Ondansetron HCl (Zofran) 4 mg IV Q4H PRN PRN Reason: Nausea/Vomiting Last Admin: 11/17/19 08:59 Dose: 4 mg Documented by: Admin: 11/17/19 02:58 Dose: 4 mg Documented by: Admin: 11/16/19 22:58 Dose: 4 mg Documented by: Admin: 11/16/19 18:52 Dose: 4 mg Documented by: Admin: 11/16/19 14:15 Dose: 4 mg Documented by: Admin: 11/16/19 10:16 Dose: 4 mg Documented by: Admin: 11/16/19 06:16 Dose: 4 mg Documented by: JACQUI Sodium Chloride (Saline Flush) 10 ml FLUSH ASDIRECTED PRN PRN Reason: IV Use Last Admin: 11/16/19 23:03 Dose: 10 ml Documented by: Admin: 11/16/19 14:16 Dose: 10 ml Documented by: ISAC - Assessment Assessment (Free Text/Narrative):: Abdominal Pain improving and now tolerating small amounts of PO liquids Feels stronger but still weak - Plan Plan (Free Text/Narrative):: increase diet to full liquids increase ambulation
--- NOTE | 2019-11-18 13:11 | PN ---
DATE SEEN: 11/17/2019 SUBJECTIVE: Olga Grossman is a 59-year-old female admitted with acute bowel obstruction. Seen both radiographically and by exam. Pain appears to be better controlled. Nausea and vomiting persists, cramps and discomfort. She has had some gas and stool. PHYSICAL EXAMINATION: VITAL SIGNS: Stable. HEENT: Mouth and oropharynx, normal mucous membranes. NECK: Benign. Thyroid small. CHEST: Clear in all lung noyola. HEART: No ectopy or murmur. ABDOMEN: A little bit of distention. Decreased bowel sounds. Generally tender. ASSESSMENT: Bowel obstruction is partial. PLAN: Continue supportive management, tolerating absence of NG. Dr. Garcia will continue to follow. /[id number] BIENVENIDO/ADAM
--- NOTE | 2019-11-18 13:13 | PN ---
DATE SEEN: 11/18/2019 SUBJECTIVE: Continued abdominal pain. Ms. Grossman is a 59-year-old female with acute bowel obstruction, likely related to adhesive disease. Had a pretty good night. Is being followed by Dr. Garcia. Diet was advanced accordingly. Plain radiographs on 11/17/2019 revealed no significant air-fluid levels and absence of gas. OBJECTIVE: VITAL SIGNS: Stable. NECK: Benign. Thyroid small. CHEST: Clear in all lung noyola. HEART: No ectopy or murmur. ABDOMEN: Little less distended, little less tender. Bowel obstruction improving. PLAN: Await Dr. Garcia's recommendations. /[id number] /ADAM
[2019-11-18] MEDS: Ondansetron 4 MG/2 ML SDV IV PRN (14:48)
[2019-11-18] MEDS: Menthol/Methyl Salicylate 85 GM Tube TOP PRN (21:06)
[2019-11-19] MEDS: HYDROmorphone 2 MG/ML SDV IVPUSH PRN ×2 (03:58→08:49)
[2019-11-19] MEDS: Sodium Chloride 0.9% 10 ML Syringe FLUSH PRN (04:00)
[2019-11-19] MEDS: Sodium Chloride 0.9% 1,000 ML IV SCH (04:48)
[2019-11-19] MEDS: Famotidine 20 MG/2 ML SDV IVPUSH SCH (09:14)
[2019-11-19 09:23] VITALS: BP 142/72; PULSE 87
--- NOTE | 2019-11-19 10:27 | PCM.SURGPN ---
- General Info Date of Service: 11/19/19 Admission Diagnosis/Problem: Abdominal pain Functional Status: Reports: Pain Controlled (denies abdominal pain at this time) - Review of Systems Pulmonary: Reports: No Symptoms Gastrointestinal: Reports: Flatus, Other (still passing small amounts of loose stools). Denies: Abdominal Pain, Nausea (Now tolerating light diet well) - Patient Data Vitals - Most Recent: Last Vital Signs Temp 97.4 F 11/19/19 08:00 Pulse 87 11/19/19 08:00 Resp 18 11/19/19 08:00 BP 142/72 H 11/19/19 08:00 Pulse Ox 100 11/19/19 08:00 Weight - Most Recent: 233 lb 3 oz I&O - Last 24 Hours: Intake & Output 11/18/19 11/19/19 11/19/19 22:59 06:59 14:59 Intake Total 917 926 Output Total 1000 500 Balance -83 426 Med Orders - Current: Current Medications Famotidine (Pepcid) 20 mg IVPUSH BID [facility] Last Admin: 11/19/19 09:14 Dose: 20 mg Documented by: Hydromorphone HCl (Dilaudid) 0.5 mg IVPUSH Q2H PRN PRN Reason: Pain (severe 7-10) Last Admin: 11/19/19 08:49 Dose: 0.5 mg Documented by: Sodium Chloride (Normal Saline) 1,000 mls @ 150 mls/hr IV ASDIRECTED [facility] Last Admin: 11/16/19 00:30 Dose: 150 mls/hr Documented by: Sodium Chloride (Normal Saline) 1,000 mls @ 125 mls/hr IV ASDIRECTED [facility] Last Admin: 11/19/19 04:48 Dose: 125 mls/hr Documented by: Methyl Salicylate (Icy Hot Cream) 0 gm TOP BID PRN PRN Reason: BACK PAIN Last Admin: 11/18/19 21:06 Dose: 1 applic Documented by: Ondansetron HCl (Zofran) 4 mg IV Q4H PRN PRN Reason: Nausea/Vomiting Last Admin: 11/18/19 14:48 Dose: 4 mg Documented by: Sodium Chloride (Saline Flush) 10 ml FLUSH ASDIRECTED PRN PRN Reason: IV Use Last Admin: 11/19/19 04:00 Dose: 10 ml Documented by: Discontinued Medications Diatrizoate Meglum/Diatrizoate Sod (Gastrografin 37%) 30 ml PO . DIRECTED ONE Stop: 11/16/19 00:20 Last Admin: 11/16/19 14:29 Dose: Not Given Documented by: Hydromorphone HCl (Dilaudid) 2 mg IVPUSH ONETIME ONE Stop: 11/16/19 01:08 Last Admin: 11/16/19 01:21 Dose: 2 mg Documented by: Iopamidol (Isovue-370 (76%)) 100 ml IV . DIRECTED ONE Stop: 11/16/19 00:20 Last Admin: 11/16/19 01:49 Dose: 85 ml Documented by: Morphine Sulfate (Morphine) 4 mg IVPUSH ONETIME ONE Stop: 11/16/19 00:13 Last Admin: 11/16/19 00:33 Dose: 4 mg Documented by: Ondansetron HCl (Zofran) 4 mg IVPUSH ONETIME ONE Stop: 11/16/19 00:13 Last Admin: 11/16/19 00:33 Dose: 4 mg Documented by: Ondansetron HCl (Zofran) 4 mg IVPUSH ONETIME ONE Stop: 11/16/19 01:08 Last Admin: 11/16/19 01:21 Dose: 4 mg Documented by: Pantoprazole Sodium (Protonix Iv) 40 mg IVPUSH DAILY [facility] Last Admin: 11/17/19 08:06 Dose: 40 mg Documented by: - Exam General: Alert, Oriented Lungs: Normal Respiratory Effort GI/Abdominal Exam: Soft, Non-Tender Extremities: Normal Inspection Sepsis Event Note - Evaluation Sepsis Screening Result: No Definite Risk - Focused Exam Vital Signs: Vital Signs Temp Pulse Resp BP Pulse Ox 11/19/19 08:00 97.4 F 87 18 142/72 H 100 11/19/19 04:00 98.2 F 69 16 133/57 L 97 11/19/19 00:00 98.9 F 97 16 136/67 96 - Problem List Review Problem List Initiated/Reviewed/Updated: Yes - My Orders Last 24 Hours: Active Orders 24 hr Category Date Time Status Full Liquid Diet [DIET] Diet 11/18/19 Lunch Active Medication Orders Famotidine (Pepcid) 20 mg IVPUSH BID [facility] Last Admin: 11/19/19 09:14 Dose: 20 mg Documented by: Admin: 11/18/19 22:00 Dose: 20 mg Documented by: Admin: 11/18/19 09:09 Dose: 20 mg Documented by: Admin: 11/17/19 21:28 Dose: 20 mg Documented by: LESTER Hydromorphone HCl (Dilaudid) 0.5 mg IVPUSH Q2H PRN PRN Reason: Pain (severe 7-10) Last Admin: 11/19/19 08:49 Dose: 0.5 mg Documented by: Admin: 11/19/19 03:58 Dose: 0.5 mg Documented by: Admin: 11/18/19 12:55 Dose: 0.5 mg Documented by: Admin: 11/18/19 03:42 Dose: 0.5 mg Documented by: Admin: 11/17/19 21:29 Dose: 0.5 mg Documented by: Admin: 11/17/19 15:15 Dose: 0.5 mg Documented by: Admin: 11/17/19 09:35 Dose: 0.5 mg Documented by: Admin: 11/17/19 05:52 Dose: 0.5 mg Documented by: Admin: 11/17/19 02:33 Dose: 0.5 mg Documented by: Admin: 11/16/19 22:51 Dose: 0.5 mg Documented by: Admin: 11/16/19 19:31 Dose: 0.5 mg Documented by: Admin: 11/16/19 14:14 Dose: 0.5 mg Documented by: Admin: 11/16/19 10:16 Dose: 0.5 mg Documented by: Admin: 11/16/19 06:16 Dose: 0.5 mg Documented by: JACQUI Sodium Chloride (Normal Saline) 1,000 mls @ 150 mls/hr IV ASDIRECTED [facility] Last Admin: 11/16/19 00:30 Dose: 150 mls/hr Documented by: VALENTINE Sodium Chloride (Normal Saline) 1,000 mls @ 125 mls/hr IV ASDIRECTED [facility] Last Admin: 11/19/19 04:48 Dose: 125 mls/hr Documented by: Infusion: 11/19/19 04:48 Dose: 125 mls/hr Documented by: Admin: 11/18/19 20:44 Dose: 125 mls/hr Documented by: Infusion: 11/18/19 20:18 Dose: 125 mls/hr Documented by: Admin: 11/18/19 12:18 Dose: 125 mls/hr Documented by: Infusion: 11/18/19 11:30 Dose: 125 mls/hr Documented by: Admin: 11/18/19 03:30 Dose: 125 mls/hr Documented by: Infusion: 11/18/19 03:21 Dose: 125 mls/hr Documented by: Admin: 11/17/19 19:21 Dose: 125 mls/hr Documented by: Infusion: 11/17/19 19:01 Dose: 125 mls/hr Documented by: Admin: 11/17/19 11:01 Dose: 125 mls/hr Documented by: Infusion: 11/17/19 10:36 Dose: 125 mls/hr Documented by: Admin: 11/17/19 02:36 Dose: 125 mls/hr Documented by: Infusion: 11/17/19 02:13 Dose: 125 mls/hr Documented by: Admin: 11/16/19 18:13 Dose: 125 mls/hr Documented by: Infusion: 11/16/19 16:56 Dose: 125 mls/hr Documented by: Admin: 11/16/19 08:56 Dose: 125 mls/hr Documented by: ALICE Methyl Salicylate (Icy Hot Cream) 0 gm TOP BID PRN PRN Reason: BACK PAIN Last Admin: 11/18/19 21:06 Dose: 1 applic Documented by: Admin: 11/17/19 21:29 Dose: 1 applic Documented by: Admin: 11/17/19 15:31 Dose: 1 applic Documented by: ISAC Ondansetron HCl (Zofran) 4 mg IV Q4H PRN PRN Reason: Nausea/Vomiting Last Admin: 11/18/19 14:48 Dose: 4 mg Documented by: Admin: 11/17/19 08:59 Dose: 4 mg Documented by: Admin: 11/17/19 02:58 Dose: 4 mg Documented by: Admin: 11/16/19 22:58 Dose: 4 mg Documented by: Admin: 11/16/19 18:52 Dose: 4 mg Documented by: Admin: 11/16/19 14:15 Dose: 4 mg Documented by: Admin: 11/16/19 10:16 Dose: 4 mg Documented by: Admin: 11/16/19 06:16 Dose: 4 mg Documented by: JACQUI Sodium Chloride (Saline Flush) 10 ml FLUSH ASDIRECTED PRN PRN Reason: IV Use Last Admin: 11/19/19 04:00 Dose: 10 ml Documented by: Admin: 11/16/19 23:03 Dose: 10 ml Documented by: Admin: 11/16/19 14:16 Dose: 10 ml Documented by: ISAC - Assessment Assessment (Free Text/Narrative):: Abdominal Pain now resolved Partial Small Bowel Obstruction now resolved 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
--- NOTE | 2019-11-19 12:52 | DISCH ---
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 HISTORY OF PRESENT ILLNESS: Olga Grossman is a 59-year-old female admitted through [facility] ER. Presented with increasing abdominal pain, distention, and bloating; had had a peculiar steak meal; was seen and evaluated; found to have small-bowel obstruction and admitted to hospital. On admission, exam was stable. There was abdominal distention, decreased bowel sounds, and decreased GI motility. CAT scan confirmed clinical findings of bowel obstruction. LABORATORY STUDIES: Of significance, white count 19,000, fell to 13.6, and fell to 11. Electrolytes were satisfactory. Low potassium at 3.3, returned normal at 3.7. BUN went from 28 to 23, GFR from 50 to greater than 60. Mildly elevated liver enzymes noted. Lipase greater than 1500, fell to . HOSPITAL COURSE: The patient admitted to hospital for treatment. NG catheter was placed on the initial night but intolerability and lack of output, i.e., previous gastric bypass surgery, decreased need. Dr. Garcia, surgeon, saw her in consultation throughout her hospital stay. Diet was advanced slowly. Bowel activity was improved. Ambulation was successful. At the time of discharge, pain had resolved completely. OBJECTIVE: VITAL SIGNS: At the time of discharge 105 kg, 142/72, 18, 100, and pulse of 80. GENERAL: Appears comfortable. HEENT: Mouth and oropharynx with good hydration. NECK: Benign. CHEST: Clear in all lung noyola. HEART: No ectopy or murmur. ABDOMEN: Much benign. PLAN: The patient will be discharged home. We will add Protonix 40 mg one daily to her home medications. Please see med recon list. Followup appointment with primary in 2 weeks' time. Surgical procedures, none. Consultation with Jorgito Garcia MD, of General Surgery. /[id number] BIENVENIDO/ADAM
[2019-11-20] MEDS ORDERED: Pantoprazole 40 MG Tab.CR PO SCH (06:00)
--- NOTE | 2019-11-20 10:43 | CR ---
INDICATION: Abdominal pain/followup bowel obstruction. ABDOMEN, TWO VIEWS: Six images of the abdomen is supine and upright projections were obtained 11/17/[address] scan of 11/16/19 revealing marked decrease in the number of dilated small bowel loops with only one air-fluid level suggested at this time suggesting resolution of a previous small bowel obstruction or paralytic ileus. This should be correlated clinically. No definite mass lesions, organomegaly or nonvascular pathology calcifications were identified - what likely represents a phlebolith is noted in the left lower pelvis. Mild dextroconvex rotoscoliosis of the lower lumbar spine is noted. IMPRESSION: 1. Marked improvement in the appearance of the abdomen with resolution of previous dilated loops of small bowel with air-fluid levels except for one smaller level at the right flank. 2. 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 3. Exogenous obesity. MTDD
== END 2019-11-19 12:15 | disposition home or self-care (01) | DRG 390 ==
LOC: FB.ED 23:35 → FB.MS 11-16 02:50
PROVIDERS: ADMIT Family Medicine; ATTEND Surgery
PROC: 0D9670Z Drainage of Stomach with Drainage Device, Via Natural or Artificial Opening (ICD-10-PCS; principal; 2019-11-16)
DX: K56.51 Intestinal adhesions [bands], with partial obstruction (principal); Z77.22 Contact with and (suspected) exposure to environmental tobacco smoke (acute) (chronic); G89.29 Other chronic pain; M54.9 Dorsalgia, unspecified; M79.7 Fibromyalgia; R74.8 Abnormal levels of other serum enzymes; Z98.84 Bariatric surgery status; Z79.899 Other long term (current) drug therapy; Z91.048 Other nonmedicinal substance allergy status; Z88.5 Allergy status to narcotic agent; Z88.8 Allergy status to other drugs, medicaments and biological substances; Z90.49 Acquired absence of other specified parts of digestive tract; Z98.890 Other specified postprocedural states; Z88.6 Allergy status to analgesic agent; H54.7 Unspecified visual loss; M19.90 Unspecified osteoarthritis, unspecified site; Z20.828 Contact with and (suspected) exposure to other viral communicable diseases
CPT/HCPCS: 36415; 74019; 74177; 80053; 81001; 82150; 83690; 85025; 85027; 86140; 93005; 96361; 96374; 96375; 96376; 99285-25; A9270-GY; C9113; J1170; J2270; J2405; J3490; J7030; Q9963; Q9967; U0002

== ENCOUNTER 2021-02-07 13:03 | Inpatient (IN) | payer MEDICAID ==
--- NOTE | 2021-02-07 13:56 | EDM.PDOC ---
ED HPI GENERAL MEDICAL PROBLEM - General Chief Complaint: Respiratory Problem Stated Complaint: SOB Time Seen by Provider: 02/07/21 13:50 Source of Information: Reports: Patient History Limitations: Reports: No Limitations - History of Present Illness INITIAL COMMENTS - FREE TEXT/NARRATIVE: 61-year-old female who reports approximately 2 weeks ago she developed nasal congestion and slight cough with sneezing and some malaise. Since then the symptoms have been basically hanging around and over the past week they have worsened with worsening cough and worsening difficulty breathing with increasing weakness. She also has developed pain in her chest with cough and he has generalized body aches as well. Over the past 2 days she has also had progressive weakness and has found it difficult even to move around and move around causing her to become much more short of breath over the past 2 days well. She has had no vomiting or diarrhea. No nausea. Her pain is rated by her as a 4/10. She states she feels miserable. The last 2 days she has lost her voice as well and she has a worsening sore throat. She has not been vaccinated against Covid. She presents to the emergency department via private vehicle with her and her O2 saturations are 88-89% on room air. No dysuria or hematuria. She has had loss of taste and smell sense associated with this illness as well. She has been drinking liquids well but has had no appetite. There are no other associated signs or symptoms. There are no other modifying factors. Onset: Other (2 weeks ago) Duration: Getting Worse (Particularly over the past week and even more so over the past 2 days.) Location: Reports: Chest, Generalized Quality: Reports: Ache, Sharp Severity: Moderate Improves with: Reports: Rest Worsens with: Reports: Breathing, Other (coughing), Movement Context: Reports: Other (As above.) Associated Symptoms: Reports: No Other Symptoms (Except as above.) Treatments ONLINE MEDIA BUYER: Reports: Other (see below) (Nothing.) Chest Pain Score (Numeric/FACES): 2 - Related Data Allergies Allergy/AdvReac Type Severity Reaction Status Date / Time scopolamine Allergy Intermediate Rash Verified 02/07/21 13:38 tramadol Allergy Intermediate Swelling Verified 02/07/21 13:38 adhesive Allergy Mild red itchy Verified 02/07/21 13:38 ibuprofen [From Advil] Allergy Mild Swelling Verified 02/07/21 13:38 Home Meds: Home Meds oxyCODONE HCl/Acetaminophen [Percocet 10-325 mg Tablet] 1 tab PO Q8H PRN 11/16/19 [History] Docusate Sodium 1 cap PO DAILY 02/07/21 [History] Doxepin [SINEquan] 100 mg PO BEDTIME 02/07/21 [History] Fluticasone/Salmeterol [Advair 500-50] 1 puff INH BID 02/07/21 [History] Glucosamine/D3/Boswellia Galina [Osteo Bi-Flex Tablet] 1 tab PO BID 02/07/21 [History] Montelukast [Singulair] 10 mg PO BEDTIME 02/07/21 [History] Morphine [MS Contin] 15 mg PO DAILY PRN 02/07/21 [History] [place]-3S/DHA/Epa/Fish Oil [Fish Oil [place]-3 Softgel] 1 cap PO DAILY 02/07/21 [History] Oxybutynin [Oxybutynin ER] 10 mg PO DAILY 02/07/21 [History] Pantoprazole [ProTONIX] 40 mg PO 06 02/07/21 [History] Venlafaxine [Effexor] 150 mg PO DAILY 02/07/21 [History] hydroCHLOROthiazide [Hydrochlorothiazide] 25 mg PO BEDTIME 02/07/21 [History] lisinopriL [Lisinopril] 40 mg PO DAILY 02/07/21 [History] Past Medical History HEENT History: Reports: Impaired Vision Other HEENT History: Best disease Cardiovascular History: Reports: Arrhythmia, Hypertension Respiratory History: Reports: Asthma, COPD Musculoskeletal History: Reports: Arthritis, Back Pain, Chronic, Fibromyalgia, Other (See Below) Other Musculoskeletal History: 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 Psychiatric History: Reports: Anxiety, Depression Endocrine/Metabolic History: Reports: Obesity/BMI 30+ - Past Surgical History HEENT Surgical History: Reports: Oral Surgery GI Surgical History: Reports: Bariatric Procedure (Gastric bypass), Cholecystectomy Female Surgical History: Reports: Tubal Ligation Neurological Surgical History: Reports: Spinal Fusion, Other (See Below) Other Neurological Surgeries/Procedures: s/p cervical fusion Musculoskeletal Surgical History: Reports: Shoulder Surgery, Other (See Below) Other Musculoskeletal Surgeries/Procedures:: s/p cervical fusion Social & Family History - Family History Cardiac: Reports: Heart Failure Oncologic: Reports: Brain, Lung - Tobacco Use Tobacco Use Status *Q: Unknown Ever Used Tobacco (Nonsmoker) - Caffeine Use Caffeine Use: Reports: Coffee, Soda - Alcohol Use Alcohol Use History: No - Living Situation & Occupation Living situation: Reports: , with Spouse ED ROS GENERAL - Review of Systems Review Of Systems: See Below Constitutional: Reports: Malaise, Weakness, Fatigue. Denies: Fever, Chills HEENT: Reports: Throat Pain, Other (Hoarse voice. Sore throat. Nasal congestion.) Respiratory: Reports: Shortness of Breath, Pleuritic Chest Pain, Cough. Denies: Hemoptysis Cardiovascular: Reports: Chest Pain, Dyspnea on Exertion, Lightheadedness Endocrine: Reports: Fatigue GI/Abdominal: Denies: Nausea, Vomiting : Reports: Other (Decreased urine output). Denies: Dysuria, Hematuria Musculoskeletal: Reports: Other (Generalized body aches) Skin: Denies: Diaphoresis, Rash Neurological: Reports: Dizziness, Headache Hematologic/Lymphatic: Denies: Easy Bleeding, Easy Bruising Immunologic: Reports: Other (Has not been vaccinated against Covid.) ED EXAM, GENERAL - Physical Exam Exam: See Below Exam Limited By: No Limitations General Appearance: Alert, Moderate Distress, Obese, Other (Seems somewhat dyspneic.) Eye Exam: Bilateral Eye: EOMI, Normal Inspection (Sclera are anicteric), PERRL Ears: Normal External Exam, Hearing Grossly Normal Ear Exam: Bilateral Ear: Auricle Normal Nose: No Blood, Nasal Drainage Throat/Mouth: No Airway Compromise, Other (Dry mucous membranes. Hoarse voice. Erythema posteriorly.) Neck: Normal Inspection, Supple, Non-Tender, Full Range of Motion Respiratory/Chest: Respiratory Distress, Rales, Rhonchi, Accessory Muscle Use, Other (Appears dyspneic.) Cardiovascular: Normal Peripheral Pulses, No Murmur, Tachycardia Peripheral Pulses: 2+: Radial (L), Radial (R), Dorsalis Pedis (L), Dorsalis Pedis (R) GI/Abdominal: Normal Bowel Sounds, Soft, Non-Tender, No Mass Back Exam: Normal Inspection Extremities: Normal Inspection, Normal Range of Motion, Non-Tender, No Pedal Edema, Normal Capillary Refill Neurological: Alert, Oriented, CN II-XII Intact, No Motor/Sensory Deficits Psychiatric: Depressed Mood, Flat Affect Skin Exam: Warm, Dry, Intact, Normal Color, No Rash #1 Interpretation EKG Date: 02/07/21 Time: 13:26 Rhythm: NSR Rate (Beats/Min): 97 [place]: LAD-Left [place] Deviation P-Wave: Present QRS: Normal ST-T: Other (LVH with secondary repolarization abnormality.) QT: Normal Comparison: No Change (No significant changes in this EKG compared to EKG performed on 11/16/2019.) Course - Vital Signs Last Recorded V/S: Last Vital Signs Temp 36.9 C 02/07/21 13:10 Pulse 104 H 02/07/21 13:10 Resp 20 02/07/21 13:10 BP 110/77 02/07/21 13:10 Pulse Ox 90 L 02/07/21 13:10 - Orders/Labs/Meds Orders: Active Orders 24 hr Category Date Time Status Patient Status Manage Transfer [TRANSFER] Routine ADT 02/07/21 17:30 Active Patient Status [ADT] Routine ADT 02/07/21 17:13 Active Bedrest Bathroom Privileges [RC] ASDIRECTED Care 02/07/21 17:13 Active Cardiac Monitoring [RC] CONTINUOUS Care 02/07/21 17:15 Active Height and Weight [RC] UPON Care 02/07/21 17:13 Active Intake and Output [RC] QSHIFT Care 02/07/21 17:15 Active Oxygen Therapy [RC] PRN Care 02/07/21 17:13 Active Pulse Oximetry [RC] CONTINUOUS Care 02/07/21 17:16 Active RT Aerosol Therapy [RC] ASDIRECTED Care 02/07/21 17:19 Active Up With Assistance [RC] ASDIRECTED Care 02/07/21 17:13 Active VTE/DVT Education [RC] Per Unit Routine Care 02/07/21 17:13 Active Vital Signs [RC] Q4H Care 02/07/21 17:13 Active Heart Healthy Diet [DIET] Diet 02/07/21 Dinner Ordered Ang Chest [CT] Stat Exams 02/07/21 15:06 Taken BASIC METABOLIC PANEL,BMP [CHEM] AM Lab 02/08/21 05:11 Ordered CBC WITH AUTO DIFF [HEME] AM Lab 02/08/21 05:11 Ordered CULTURE BLOOD [BC] Urgent Lab 02/07/21 14:30 Received CULTURE BLOOD [BC] Urgent Lab 02/07/21 17:05 Received CULTURE URINE [RM] Stat Lab 02/07/21 17:28 Ordered TROPONIN I [CHEM] AM Lab 02/08/21 05:11 Ordered Acetaminophen [TylenoL] Med 02/07/21 17:13 Ordered 650 mg PO Q4H PRN Albuterol/Ipratropium [DuoNeb 3.0-0.5 MG/3 ML] Med 02/07/21 21:00 Ordered 3 ml NEB QIDRT Azithromycin [Zithromax] 500 mg Med 02/07/21 17:30 Ordered Sodium Chloride 0.9% [Normal Saline AdvBag] 250 ml IV Q24H Enoxaparin [Lovenox] Med 02/07/21 17:15 Ordered 40 mg SUBCUT Q24H Ondansetron [Zofran] Med 02/07/21 17:13 Ordered 4 mg IV Q6H PRN Sodium Chloride 0.9% [Normal Saline] 1,000 ml Med 02/07/21 17:15 Ordered IV ASDIRECTED Sodium Chloride 0.9% [Saline Flush] Med 02/07/21 14:16 Active 10 ml FLUSH ASDIRECTED PRN cefTRIAXone [Rocephin] Med 02/08/21 16:30 Ordered 1 gm IVPUSH Q24H dexAMETHasone [Decadron] Med 02/08/21 09:00 Ordered 6 mg IVPUSH DAILY Blood Culture x2 Reflex Set [OM.PC] Urgent Oth 02/07/21 16:38 Ordered Peripheral IV Insertion Adult [OM.PC] Routine Oth 02/07/21 14:16 Ordered Resuscitation Status Routine Resus Stat 02/07/21 17:13 Ordered EKG 12 Lead [EK] Routine Ther 02/07/21 14:16 Ordered Medication Orders Acetaminophen (Acetaminophen 325 Mg Tab) 650 mg PO Q4H PRN PRN Reason: Pain (Mild 1-3)/fever Albuterol/Ipratropium (Albuterol/Ipratropium 3.0-0.5 Mg/3 Ml Neb Soln) 3 ml NEB QIDRT ANT Ceftriaxone Sodium (Ceftriaxone 1 Gm Vial) 1 gm IVPUSH Q24H ANT Dexamethasone (Dexamethasone 4 Mg/Ml Sdv) 6 mg IVPUSH DAILY ANT Enoxaparin Sodium (Enoxaparin 40 Mg/0.4 Ml Syringe) 40 mg SUBCUT Q24H [facility] Sodium Chloride (Normal Saline) 1,000 mls @ 125 mls/hr IV ASDIRECTED ANT Azithromycin 500 mg/ Sodium (Chloride) 250 mls @ 250 mls/hr IV Q24H ANT Ondansetron HCl (Ondansetron 4 Mg/2 Ml Sdv) 4 mg IV Q6H PRN PRN Reason: Nausea/Vomiting Sodium Chloride (Sodium Chloride 0.9% 10 Ml Syringe) 10 ml FLUSH ASDIRECTED PRN PRN Reason: Keep Vein Open Labs: Laboratory Tests 02/07/21 02/07/21 02/07/21 Range/Units 13:45 14:30 14:30 WBC 7.3 (3.0-10.3) x10-3/uL RBC 4.12 (3.60-5.20) x10(6)uL Hgb 12.9 (11.4-15.5) g/dL Hct 37.7 (34.2-48.2) % MCV 91.4 (76.7-100.5) fL MCH 31.2 (23.9-33.9) pg MCHC 34.2 (31.9-34.8) g/dL RDW 13.4 (12.3-16.5) % Plt Count 312 (151-488) x10(3)uL MPV 8.3 (7.1-12.4) fL Neut % (Auto) 72.2 (30.8-76.2) % Lymph % (Auto) 14.4 L (18.4-52.1) % Richardson % (Auto) 11.3 (4.4-15.7) % Eos % (Auto) 1.2 (0.6-8.1) % Baso % (Auto) 0.9 (0.2-1.5) % Neut # (Auto) 5.3 (1.5-6.3) x10-3/uL Lymph # (Auto) 1.0 (1.0-4.4) x10-3/uL Richardson # (Auto) 0.8 (0.3-1.0) x10-3/uL Eos # (Auto) 0.1 (0.0-0.8) x10-3/uL Baso # (Auto) 0.1 (0.0-0.1) x10-3/uL D-Dimer, Quantitative 1.64 H (0.0-0.59) mg/LFEU Sodium (135-145) mmol/L Potassium (3.5-5.3) mmol/L Chloride (100-110) mmol/L Carbon Dioxide (21-32) mmol/L BUN (7-18) mg/dL Creatinine (0.55-1.02) mg/dL Est Cr Clr Drug Dosing mL/min Estimated GFR (MDRD) (>60) BUN/Creatinine Ratio (9-20) Glucose (80-116) mg/dL Lactic Acid (0.4-2.0) mmol/L Calcium (8.6-10.2) mg/dL Magnesium (1.8-2.5) mg/dL Total Bilirubin (0.1-1.3) mg/dL AST (5-25) IU/L ALT (12-36) U/L Alkaline Phosphatase (56-112) IU/L Troponin I (4.0-60.3) pg/mL C-Reactive Protein (0.5-0.9) mg/dL NT-Pro-B Natriuret Pep (<=125) pg/mL Total Protein (6.0-8.0) g/dL Albumin (3.2-4.6) g/dL Globulin g/dL Albumin/Globulin Ratio Urine Color (YELLOW) Urine Appearance (CLEAR) Urine pH (5.0-6.5) Ur Specific [place] (1.010-1.025) Urine Protein (NEGATIVE) mg/dL Urine Glucose (UA) (NORMAL) mg/dL Urine Ketones (NEGATIVE) mg/dL Urine Occult Blood (NEGATIVE) Urine Nitrite (NEGATIVE) Urine Bilirubin (NEGATIVE) Urine Urobilinogen (NEGATIVE) mg/dL Ur Leukocyte Esterase (NEGATIVE) Urine RBC (0-5) Urine WBC (0-5) Ur Squamous Epith Cells (NS,R,O) Urine Bacteria (NS) SARS-CoV-2 RNA (SISI) Positive H (NEGATIVE) 02/07/21 02/07/21 02/07/21 Range/Units 14:30 14:30 14:30 WBC (3.0-10.3) x10-3/uL RBC (3.60-5.20) x10(6)uL Hgb (11.4-15.5) g/dL Hct (34.2-48.2) % MCV (76.7-100.5) fL MCH (23.9-33.9) pg MCHC (31.9-34.8) g/dL RDW (12.3-16.5) % Plt Count (151-488) x10(3)uL MPV (7.1-12.4) fL Neut % (Auto) (30.8-76.2) % Lymph % (Auto) (18.4-52.1) % Richardson % (Auto) (4.4-15.7) % Eos % (Auto) (0.6-8.1) % Baso % (Auto) (0.2-1.5) % Neut # (Auto) (1.5-6.3) x10-3/uL Lymph # (Auto) (1.0-4.4) x10-3/uL Richardson # (Auto) (0.3-1.0) x10-3/uL Eos # (Auto) (0.0-0.8) x10-3/uL Baso # (Auto) (0.0-0.1) x10-3/uL D-Dimer, Quantitative (0.0-0.59) mg/LFEU Sodium 141 (135-145) mmol/L Potassium 3.4 L (3.5-5.3) mmol/L Chloride 104 (100-110) mmol/L Carbon Dioxide 31 (21-32) mmol/L BUN 27 H (7-18) mg/dL Creatinine 1.0 (0.55-1.02) mg/dL Est Cr Clr Drug Dosing 50.37 mL/min Estimated GFR (MDRD) 56 L (>60) BUN/Creatinine Ratio 27.0 H (9-20) Glucose 114 (80-116) mg/dL Lactic Acid 0.8 (0.4-2.0) mmol/L Calcium 9.0 (8.6-10.2) mg/dL Magnesium 2.3 (1.8-2.5) mg/dL Total Bilirubin 0.8 (0.1-1.3) mg/dL AST 63 H D (5-25) IU/L ALT 94 H (12-36) U/L Alkaline Phosphatase 173 H (56-112) IU/L Troponin I 8.5 (4.0-60.3) pg/mL C-Reactive Protein 8.5 H* (0.5-0.9) mg/dL NT-Pro-B Natriuret Pep (<=125) pg/mL Total Protein 7.6 (6.0-8.0) g/dL Albumin 2.7 L (3.2-4.6) g/dL Globulin 4.9 g/dL Albumin/Globulin Ratio 0.6 Urine Color (YELLOW) Urine Appearance (CLEAR) Urine pH (5.0-6.5) Ur Specific [place] (1.010-1.025) Urine Protein (NEGATIVE) mg/dL Urine Glucose (UA) (NORMAL) mg/dL Urine Ketones (NEGATIVE) mg/dL Urine Occult Blood (NEGATIVE) Urine Nitrite (NEGATIVE) Urine Bilirubin (NEGATIVE) Urine Urobilinogen (NEGATIVE) mg/dL Ur Leukocyte Esterase (NEGATIVE) Urine RBC (0-5) Urine WBC (0-5) Ur Squamous Epith Cells (NS,R,O) Urine Bacteria (NS) SARS-CoV-2 RNA (SISI) (NEGATIVE) 02/07/21 02/07/21 Range/Units 14:30 16:35 WBC (3.0-10.3) x10-3/uL RBC (3.60-5.20) x10(6)uL Hgb (11.4-15.5) g/dL Hct (34.2-48.2) % MCV (76.7-100.5) fL MCH (23.9-33.9) pg MCHC (31.9-34.8) g/dL RDW (12.3-16.5) % Plt Count (151-488) x10(3)uL MPV (7.1-12.4) fL Neut % (Auto) (30.8-76.2) % Lymph % (Auto) (18.4-52.1) % Richardson % (Auto) (4.4-15.7) % Eos % (Auto) (0.6-8.1) % Baso % (Auto) (0.2-1.5) % Neut # (Auto) (1.5-6.3) x10-3/uL Lymph # (Auto) (1.0-4.4) x10-3/uL Richardson # (Auto) (0.3-1.0) x10-3/uL Eos # (Auto) (0.0-0.8) x10-3/uL Baso # (Auto) (0.0-0.1) x10-3/uL D-Dimer, Quantitative (0.0-0.59) mg/LFEU Sodium (135-145) mmol/L Potassium (3.5-5.3) mmol/L Chloride (100-110) mmol/L Carbon Dioxide (21-32) mmol/L BUN (7-18) mg/dL Creatinine (0.55-1.02) mg/dL Est Cr Clr Drug Dosing mL/min Estimated GFR (MDRD) (>60) BUN/Creatinine Ratio (9-20) Glucose (80-116) mg/dL Lactic Acid (0.4-2.0) mmol/L Calcium (8.6-10.2) mg/dL Magnesium (1.8-2.5) mg/dL Total Bilirubin (0.1-1.3) mg/dL AST (5-25) IU/L ALT (12-36) U/L Alkaline Phosphatase (56-112) IU/L Troponin I (4.0-60.3) pg/mL C-Reactive Protein (0.5-0.9) mg/dL NT-Pro-B Natriuret Pep 59 (<=125) pg/mL Total Protein (6.0-8.0) g/dL Albumin (3.2-4.6) g/dL Globulin g/dL Albumin/Globulin Ratio Urine Color [place] (YELLOW) Urine Appearance Slightly cloudy (CLEAR) Urine pH 5.0 (5.0-6.5) Ur Specific [place] 1.010 (1.010-1.025) Urine Protein Trace (NEGATIVE) mg/dL Urine Glucose (UA) Normal (NORMAL) mg/dL Urine Ketones Negative (NEGATIVE) mg/dL Urine Occult Blood Trace (NEGATIVE) Urine Nitrite Positive H (NEGATIVE) Urine Bilirubin Negative (NEGATIVE) Urine Urobilinogen 4 H (NEGATIVE) mg/dL Ur Leukocyte Esterase Large H (NEGATIVE) Urine RBC 0-5 (0-5) Urine WBC 20-30 H (0-5) Ur Squamous Epith Cells Few H (NS,R,O) Urine Bacteria Many H (NS) SARS-CoV-2 RNA (SISI) (NEGATIVE) Meds: Medications Generic Name Dose Route Start Last Admin Trade Name Catarina PRN Reason Stop Dose Admin Acetaminophen 650 mg 02/07/21 17:13 Acetaminophen 325 Mg Tab PO Q4H PRN Pain (Mild 1-3)/fever Albuterol/Ipratropium 3 ml 02/07/21 21:00 Albuterol/Ipratropium 3.0-0.5 Mg/3 Ml Neb Soln NEB QIDRT ANT Ceftriaxone Sodium 1 gm 02/08/21 16:30 Ceftriaxone 1 Gm Vial IVPUSH Q24H ANT Dexamethasone 6 mg 02/08/21 09:00 Dexamethasone 4 Mg/Ml Sdv IVPUSH DAILY ANT Enoxaparin Sodium 40 mg 02/07/21 17:15 Enoxaparin 40 Mg/0.4 Ml Syringe SUBCUT Q24H ANT Sodium Chloride 1,000 mls @ 125 mls/hr 02/07/21 17:15 Normal Saline IV ASDIRECTED ANT Azithromycin 500 mg/ Sodium 250 mls @ 250 mls/hr 02/07/21 17:30 Chloride IV Q24H ANT Ondansetron HCl 4 mg 02/07/21 17:13 Ondansetron 4 Mg/2 Ml Sdv IV Q6H PRN Nausea/Vomiting Sodium Chloride 10 ml 02/07/21 14:16 Sodium Chloride 0.9% 10 Ml Syringe FLUSH ASDIRECTED PRN Keep Vein Open Discontinued Medications Generic Name Dose Route Start Last Admin Trade Name Catarina PRN Reason Stop Dose Admin Acetaminophen 1,000 mg 02/07/21 14:19 02/07/21 14:25 Acetaminophen 500 Mg Tab PO 02/07/21 14:20 1,000 mg ONETIME ONE Administration Ceftriaxone Sodium 2 gm 02/07/21 16:40 Ceftriaxone 2 Gm Vial IVPUSH 02/07/21 16:41 ONETIME ONE Dexamethasone 6 mg 02/07/21 16:40 Dexamethasone 4 Mg/Ml Sdv IVPUSH 02/07/21 16:41 ONETIME ONE Sodium Chloride 500 mls @ 999 mls/hr 02/07/21 14:19 02/07/21 14:26 Normal Saline IV 02/07/21 14:49 999 mls/hr .BOLUS ONE Administration Iopamidol 100 ml 02/07/21 15:44 02/07/21 16:03 Iopamidol 755 Mg/Ml 100 Ml Bottle IV 02/07/21 15:45 100 ml . DIRECTED ONE Administration - Radiology Interpretation Free Text/Narrative:: CTA of the chest shows no evidence of PE but there are bilateral coarse ground glass infiltrates consistent with Covid pneumonia. This was per the [facility] radiologist. - Re-Assessments/Exams Free Text/Narrative Re-Assessment/Exam: 02/07/21 15:00: Embolus, 7.3. Hemoglobin is 12.9. Platelet count is normal. Sodium is 141. Potassium is 3.4. Bicarbonate is 31. BUN is 27 and creatinine is 1.0. Glucose is 114. AST and ALT are mildly elevated as is the alkaline phosphatase. The troponin was normal. ProBNP was normal. A d-dimer was 1.64. A CRP was 8. The patient's rapid Covid was positive. The patient has received normal saline 1 L IV bolus and her pulse rate is in the 90s. She does not really feel much better. Her oxygen is still 93-94% on 3 L/m via nasal cannula. I will send the patient for CTA of her chest. 02/07/21 16:40: CTA of the chest showed no evidence of pulmonary emboli. She does have bilateral infiltrates consistent with Covid pneumonia. She is maintaining rest for stable on 3 L/m via nasal cannula. Her mentation remains normal. She feels that she will be able to provide us with urine now. The patient will need admission and I am calling Dr. Bowers for admission. I have discussed all this with the patient and she is in agreement with the plan for admission. I have also discussed CODE STATUS with the patient and she is a FULL CODE. 02/07/21 17:25: I discussed the patient's case with Dr. Bowers and he is in agreement with the plan for admission of the patient. I have placed admission orders and care the patient will be to Dr. Bowers at 7 AM on 02/08/2021. Patient's urine did come back and there was some evidence of UTI. The urine was sent for culture. Been treated with Rocephin grams IV and all orders have been placed and the patient is going to the floor now. Departure - Departure Time of Disposition: 17:13 Disposition: Admitted As Inpatient 65 Condition: Fair Clinical Impression: Pneumonia due to COVID-19 virus, Dehydration, Weakness Bilateral pneumonia Qualifiers: Pneumonia type: due to unspecified organism Lung location: unspecified part of lung Qualified Code(s): J18.9 - Pneumonia, unspecified organism Respiratory failure with hypoxia Qualifiers: Chronicity: acute Qualified Code(s): J96.01 - Acute respiratory failure with hypoxia UTI (urinary tract infection) Qualifiers: Urinary tract infection type: site unspecified Hematuria presence: without hematuria Qualified Code(s): N39.0 - Urinary tract infection, site not specified - Discharge Information Referrals: Tea Britton [employer] TECHNICIAN [Primary Care Provider] - Forms: ED Department Discharge Sepsis Event Note (ED) - Focused Exam Vital Signs: Vital Signs Temp Pulse Resp BP Pulse Ox 02/07/21 13:10 36.9 C 104 H 20 110/77 90 L - My Orders Last 24 Hours: My Active Orders 02/07/21 14:16 Sodium Chloride 0.9% [Saline Flush] 10 ml FLUSH ASDIRECTED PRN Peripheral IV Insertion Adult [OM.PC] Routine EKG 12 Lead [EK] Routine 02/07/21 14:30 CULTURE BLOOD [BC] Urgent 02/07/21 15:06 Ang Chest [CT] Stat 02/07/21 Dinner Heart Healthy Diet [DIET] 02/07/21 16:38 Blood Culture x2 Reflex Set [OM.PC] Urgent 02/07/21 17:05 CULTURE BLOOD [BC] Urgent 02/07/21 17:13 Patient Status [ADT] Routine Bedrest Bathroom Privileges [RC] ASDIRECTED Height and Weight [RC] UPON Oxygen Therapy [RC] PRN Up With Assistance [RC] ASDIRECTED VTE/DVT Education [RC] Per Unit Routine Vital Signs [RC] Q4H Acetaminophen [TylenoL] 650 mg PO Q4H PRN Ondansetron [Zofran] 4 mg IV Q6H PRN Resuscitation Status Routine 02/07/21 17:15 Cardiac Monitoring [RC] CONTINUOUS Intake and Output [RC] QSHIFT Enoxaparin [Lovenox] 40 mg SUBCUT Q24H Sodium Chloride 0.9% [Normal Saline] 1,000 ml IV ASDIRECTED 02/07/21 17:16 Pulse Oximetry [RC] CONTINUOUS 02/07/21 17:19 RT Aerosol Therapy [RC] ASDIRECTED 02/07/21 17:28 CULTURE URINE [RM] Stat 02/07/21 17:30 Patient Status Manage Transfer [TRANSFER] Routine Azithromycin [Zithromax] 500 mg Sodium Chloride 0.9% [Normal Saline AdvBag] 250 ml IV Q24H 02/07/21 21:00 Albuterol/Ipratropium [DuoNeb 3.0-0.5 MG/3 ML] 3 ml NEB QIDRT 02/08/21 05:11 BASIC METABOLIC PANEL,BMP [CHEM] AM CBC WITH AUTO DIFF [HEME] AM TROPONIN I [CHEM] AM 02/08/21 09:00 dexAMETHasone [Decadron] 6 mg IVPUSH DAILY 02/08/21 16:30 cefTRIAXone [Rocephin] 1 gm IVPUSH Q24H - Assessment/Plan Last 24 Hours: My Active Orders 02/07/21 14:16 Sodium Chloride 0.9% [Saline Flush] 10 ml FLUSH ASDIRECTED PRN Peripheral IV Insertion Adult [OM.PC] Routine EKG 12 Lead [EK] Routine 02/07/21 14:30 CULTURE BLOOD [BC] Urgent 02/07/21 15:06 Ang Chest [CT] Stat 02/07/21 Dinner Heart Healthy Diet [DIET] 02/07/21 16:38 Blood Culture x2 Reflex Set [OM.PC] Urgent 02/07/21 17:05 CULTURE BLOOD [BC] Urgent 02/07/21 17:13 Patient Status [ADT] Routine Bedrest Bathroom Privileges [RC] ASDIRECTED Height and Weight [RC] UPON Oxygen Therapy [RC] PRN Up With Assistance [RC] ASDIRECTED VTE/DVT Education [RC] Per Unit Routine Vital Signs [RC] Q4H Acetaminophen [TylenoL] 650 mg PO Q4H PRN Ondansetron [Zofran] 4 mg IV Q6H PRN Resuscitation Status Routine 02/07/21 17:15 Cardiac Monitoring [RC] CONTINUOUS Intake and Output [RC] QSHIFT Enoxaparin [Lovenox] 40 mg SUBCUT Q24H Sodium Chloride 0.9% [Normal Saline] 1,000 ml IV ASDIRECTED 02/07/21 17:16 Pulse Oximetry [RC] CONTINUOUS 02/07/21 17:19 RT Aerosol Therapy [RC] ASDIRECTED 02/07/21 17:28 CULTURE URINE [RM] Stat 02/07/21 17:30 Patient Status Manage Transfer [TRANSFER] Routine Azithromycin [Zithromax] 500 mg Sodium Chloride 0.9% [Normal Saline AdvBag] 250 ml IV Q24H 02/07/21 21:00 Albuterol/Ipratropium [DuoNeb 3.0-0.5 MG/3 ML] 3 ml NEB QIDRT 02/08/21 05:11 BASIC METABOLIC PANEL,BMP [CHEM] AM CBC WITH AUTO DIFF [HEME] AM TROPONIN I [CHEM] AM 02/08/21 09:00 dexAMETHasone [Decadron] 6 mg IVPUSH DAILY 02/08/21 16:30 cefTRIAXone [Rocephin] 1 gm IVPUSH Q24H
[2021-02-07] MEDS ORDERED: Acetaminophen 500 MG Tab PO ONE (14:19)
[2021-02-07] MEDS ORDERED: Sodium Chloride 0.9% 500 ML IV ONE (14:19)
[2021-02-07] MEDS ORDERED: Iopamidol 755 Mg/ML 100 ML Bottle IV ONE (15:44)
[2021-02-07] MEDS ORDERED: Dexamethasone 4 MG/ML SDV IVPUSH ONE (16:40)
[2021-02-07] MEDS ORDERED: cefTRIAXone 2 GM Vial IVPUSH ONE (16:40)
[2021-02-07] MEDS ORDERED: Acetaminophen 325 MG Tab PO PRN (17:13)
--- NOTE | 2021-02-07 18:37 | PCM.HP.2 ---
H&P History of Present Illness - General Date of Service: 02/07/21 Admit Problem/Dx: Admission Diagnosis/Problem Admission Diagnosis/Problem Pneumonia Source of Information: Patient, Provider, RN History Limitations: Reports: No Limitations - History of Present Illness Initial Comments - Free Text/Narative: Olga is a 61-year-old female present to ER with lower respiratory tract symptoms including coryza, sore throat cough for at least 2 weeks. She had a negative tests in the clinic for cough, but tested positive today in the ER. She endorsed cargoman weakness, dysgeusia and anosmia. She denied any fever neither does she have any chest pain. Her past history includes but is not limited to, COPD, fibromyalgia, back pain, anxiety, depression and hypertension. She is not vaccinated against COVID 19. Chest Pain Score (Numeric/FACES): 2 - Related Data Allergies/Adverse Reactions: Allergies Allergy/AdvReac Type Severity Reaction Status Date / Time scopolamine Allergy Intermediate Rash Verified 02/07/21 13:38 tramadol Allergy Intermediate Swelling Verified 02/07/21 13:38 adhesive Allergy Mild red itchy Verified 02/07/21 13:38 ibuprofen [From Advil] Allergy Mild Swelling Verified 02/07/21 13:38 naproxen [From Aleve] Allergy Other Verified 02/07/21 18:32 Home Medications: Home Meds oxyCODONE HCl/Acetaminophen [Percocet 10-325 mg Tablet] 1 tab PO Q8H PRN 11/16/19 [History] Docusate Sodium 1 cap PO DAILY 02/07/21 [History] Doxepin [SINEquan] 100 mg PO BEDTIME 02/07/21 [History] Fluticasone/Salmeterol [Advair 500-50] 1 puff INH BID 02/07/21 [History] Glucosamine/D3/Boswellia Galina [Osteo Bi-Flex Tablet] 1 tab PO BID 02/07/21 [History] Montelukast [Singulair] 10 mg PO BEDTIME 02/07/21 [History] Morphine [MS Contin] 15 mg PO DAILY PRN 02/07/21 [History] Sonoita-3S/DHA/Epa/Fish Oil [Fish Oil Sonoita-3 Softgel] 1 cap PO DAILY 02/07/21 [History] Oxybutynin [Oxybutynin ER] 10 mg PO DAILY 02/07/21 [History] Pantoprazole [ProTONIX] 40 mg PO 06 02/07/21 [History] Venlafaxine [Effexor] 150 mg PO DAILY 02/07/21 [History] hydroCHLOROthiazide [Hydrochlorothiazide] 25 mg PO BEDTIME 02/07/21 [History] lisinopriL [Lisinopril] 40 mg PO DAILY 02/07/21 [History] Past Medical History - Past Health History Medical/Surgical History: Denies Medical/Surgical History HEENT History: Reports: Impaired Vision Other HEENT History: Best disease Cardiovascular History: Reports: Arrhythmia, Hypertension Respiratory History: Reports: Asthma, COPD [employer]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 Psychiatric History: Reports: Anxiety, Depression Endocrine/Metabolic History: Reports: Obesity/BMI 30+ - Past Surgical History GI Surgical History: Reports: Bariatric Procedure (Gastric bypass), Cholecystectomy Social & Family History - Family History Family Medical History: No Pertinent Family History Cardiac: Reports: Heart Failure Oncologic: Reports: Brain, Lung - Tobacco Use Tobacco Use Status *Q: Unknown Ever Used Tobacco (Nonsmoker) - Caffeine Use Caffeine Use: Reports: Coffee, Soda - Recreational Drug Use Recreational Drug Use: No - Living Situation & Occupation Living situation: Reports: , with Spouse H&P Review of Systems - Review of Systems: Review Of Systems: Comprehensive ROS is negative, except as noted in HPI. Exam - Exam Exam: See Below - Vital Signs Vital Signs: Last Vital Signs Temp 98.4 F 02/07/21 13:10 Pulse 104 H 02/07/21 13:10 Resp 20 02/07/21 13:10 BP 110/77 02/07/21 13:10 Pulse Ox 90 L 02/07/21 13:10 Weight: 111.13 kg - Exam Quality Assessment: Supplemental Oxygen General: Lethargic HEENT: PERRLA Neck: Supple, Trachea Midline, 2 Lungs: Clear to Auscultation, Normal Respiratory Effort Cardiovascular: Regular Rate, Regular Rhythm GI/Abdominal Exam: Normal Bowel Sounds, Soft, Non-Tender, No Organomegaly, No Distention, No Abnormal Bruit, No Mass, Pelvis Stable (Female) Exam: Deferred Rectal (Female) Exam: Deferred Back Exam: Normal Inspection, Full Range of Motion, NT Extremities: Normal Inspection, Normal Range of Motion, Non-Tender, No Pedal Edema, Normal Capillary Refill Skin: Warm, Dry, Intact Neurological: Cranial Nerves Intact, Reflexes Equal Bilateral Neuro Extensive - Mental Status: Alert, Oriented x3, Normal Mood/Affect, Normal Cognition Neuro Extensive - Motor, Sensory, Reflexes: CN II-XII Intact, Normal Gait, Normal Reflexes Psychiatric: Other (Flat affect) - Patient Data Lab Results Last 24 hrs: Laboratory Results - last 24 hr 02/07/21 02/07/21 02/07/21 Range/Units 13:45 14:30 14:30 WBC 7.3 (3.0-10.3) x10-3/uL RBC 4.12 (3.60-5.20) x10(6)uL Hgb 12.9 (11.4-15.5) g/dL Hct 37.7 (34.2-48.2) % MCV 91.4 (76.7-100.5) fL MCH 31.2 (23.9-33.9) pg MCHC 34.2 (31.9-34.8) g/dL RDW 13.4 (12.3-16.5) % Plt Count 312 (151-488) x10(3)uL MPV 8.3 (7.1-12.4) fL Neut % (Auto) 72.2 (30.8-76.2) % Lymph % (Auto) 14.4 L (18.4-52.1) % Walsh % (Auto) 11.3 (4.4-15.7) % Eos % (Auto) 1.2 (0.6-8.1) % Baso % (Auto) 0.9 (0.2-1.5) % Neut # (Auto) 5.3 (1.5-6.3) x10-3/uL Lymph # (Auto) 1.0 (1.0-4.4) x10-3/uL Walsh # (Auto) 0.8 (0.3-1.0) x10-3/uL Eos # (Auto) 0.1 (0.0-0.8) x10-3/uL Baso # (Auto) 0.1 (0.0-0.1) x10-3/uL D-Dimer, Quantitative 1.64 H (0.0-0.59) mg/LFEU Sodium (135-145) mmol/L Potassium (3.5-5.3) mmol/L Chloride (100-110) mmol/L Carbon Dioxide (21-32) mmol/L BUN (7-18) mg/dL Creatinine (0.55-1.02) mg/dL Est Cr Clr Drug Dosing mL/min Estimated GFR (MDRD) (>60) BUN/Creatinine Ratio (9-20) Glucose (80-116) mg/dL Lactic Acid (0.4-2.0) mmol/L Calcium (8.6-10.2) mg/dL Magnesium (1.8-2.5) mg/dL Total Bilirubin (0.1-1.3) mg/dL AST (5-25) IU/L ALT (12-36) U/L Alkaline Phosphatase (56-112) IU/L Troponin I (4.0-60.3) pg/mL C-Reactive Protein (0.5-0.9) mg/dL NT-Pro-B Natriuret Pep (<=125) pg/mL Total Protein (6.0-8.0) g/dL Albumin (3.2-4.6) g/dL Globulin g/dL Albumin/Globulin Ratio Urine Color (YELLOW) Urine Appearance (CLEAR) Urine pH (5.0-6.5) Ur Specific [place] (1.010-1.025) Urine Protein (NEGATIVE) mg/dL Urine Glucose (UA) (NORMAL) mg/dL Urine Ketones (NEGATIVE) mg/dL Urine Occult Blood (NEGATIVE) Urine Nitrite (NEGATIVE) Urine Bilirubin (NEGATIVE) Urine Urobilinogen (NEGATIVE) mg/dL Ur Leukocyte Esterase (NEGATIVE) Urine RBC (0-5) Urine WBC (0-5) Ur Squamous Epith Cells (NS,R,O) Urine Bacteria (NS) SARS-CoV-2 RNA (SISI) Positive H (NEGATIVE) 02/07/21 02/07/21 02/07/21 Range/Units 14:30 14:30 14:30 WBC (3.0-10.3) x10-3/uL RBC (3.60-5.20) x10(6)uL Hgb (11.4-15.5) g/dL Hct (34.2-48.2) % MCV (76.7-100.5) fL MCH (23.9-33.9) pg MCHC (31.9-34.8) g/dL RDW (12.3-16.5) % Plt Count (151-488) x10(3)uL MPV (7.1-12.4) fL Neut % (Auto) (30.8-76.2) % Lymph % (Auto) (18.4-52.1) % Walsh % (Auto) (4.4-15.7) % Eos % (Auto) (0.6-8.1) % Baso % (Auto) (0.2-1.5) % Neut # (Auto) (1.5-6.3) x10-3/uL Lymph # (Auto) (1.0-4.4) x10-3/uL Walsh # (Auto) (0.3-1.0) x10-3/uL Eos # (Auto) (0.0-0.8) x10-3/uL Baso # (Auto) (0.0-0.1) x10-3/uL D-Dimer, Quantitative (0.0-0.59) mg/LFEU Sodium 141 (135-145) mmol/L Potassium 3.4 L (3.5-5.3) mmol/L Chloride 104 (100-110) mmol/L Carbon Dioxide 31 (21-32) mmol/L BUN 27 H (7-18) mg/dL Creatinine 1.0 (0.55-1.02) mg/dL Est Cr Clr Drug Dosing 50.37 mL/min Estimated GFR (MDRD) 56 L (>60) BUN/Creatinine Ratio 27.0 H (9-20) Glucose 114 (80-116) mg/dL Lactic Acid 0.8 (0.4-2.0) mmol/L Calcium 9.0 (8.6-10.2) mg/dL Magnesium 2.3 (1.8-2.5) mg/dL Total Bilirubin 0.8 (0.1-1.3) mg/dL AST 63 H D (5-25) IU/L ALT 94 H (12-36) U/L Alkaline Phosphatase 173 H (56-112) IU/L Troponin I 8.5 (4.0-60.3) pg/mL C-Reactive Protein 8.5 H* (0.5-0.9) mg/dL NT-Pro-B Natriuret Pep (<=125) pg/mL Total Protein 7.6 (6.0-8.0) g/dL Albumin 2.7 L (3.2-4.6) g/dL Globulin 4.9 g/dL Albumin/Globulin Ratio 0.6 Urine Color (YELLOW) Urine Appearance (CLEAR) Urine pH (5.0-6.5) Ur Specific [place] (1.010-1.025) Urine Protein (NEGATIVE) mg/dL Urine Glucose (UA) (NORMAL) mg/dL Urine Ketones (NEGATIVE) mg/dL Urine Occult Blood (NEGATIVE) Urine Nitrite (NEGATIVE) Urine Bilirubin (NEGATIVE) Urine Urobilinogen (NEGATIVE) mg/dL Ur Leukocyte Esterase (NEGATIVE) Urine RBC (0-5) Urine WBC (0-5) Ur Squamous Epith Cells (NS,R,O) Urine Bacteria (NS) SARS-CoV-2 RNA (SISI) (NEGATIVE) 02/07/21 02/07/21 Range/Units 14:30 16:35 WBC (3.0-10.3) x10-3/uL RBC (3.60-5.20) x10(6)uL Hgb (11.4-15.5) g/dL Hct (34.2-48.2) % MCV (76.7-100.5) fL MCH (23.9-33.9) pg MCHC (31.9-34.8) g/dL RDW (12.3-16.5) % Plt Count (151-488) x10(3)uL MPV (7.1-12.4) fL Neut % (Auto) (30.8-76.2) % Lymph % (Auto) (18.4-52.1) % Walsh % (Auto) (4.4-15.7) % Eos % (Auto) (0.6-8.1) % Baso % (Auto) (0.2-1.5) % Neut # (Auto) (1.5-6.3) x10-3/uL Lymph # (Auto) (1.0-4.4) x10-3/uL Walsh # (Auto) (0.3-1.0) x10-3/uL Eos # (Auto) (0.0-0.8) x10-3/uL Baso # (Auto) (0.0-0.1) x10-3/uL D-Dimer, Quantitative (0.0-0.59) mg/LFEU Sodium (135-145) mmol/L Potassium (3.5-5.3) mmol/L Chloride (100-110) mmol/L Carbon Dioxide (21-32) mmol/L BUN (7-18) mg/dL Creatinine (0.55-1.02) mg/dL Est Cr Clr Drug Dosing mL/min Estimated GFR (MDRD) (>60) BUN/Creatinine Ratio (9-20) Glucose (80-116) mg/dL Lactic Acid (0.4-2.0) mmol/L Calcium (8.6-10.2) mg/dL Magnesium (1.8-2.5) mg/dL Total Bilirubin (0.1-1.3) mg/dL AST (5-25) IU/L ALT (12-36) U/L Alkaline Phosphatase (56-112) IU/L Troponin I (4.0-60.3) pg/mL C-Reactive Protein (0.5-0.9) mg/dL NT-Pro-B Natriuret Pep 59 (<=125) pg/mL Total Protein (6.0-8.0) g/dL Albumin (3.2-4.6) g/dL Globulin g/dL Albumin/Globulin Ratio Urine Color [place] (YELLOW) Urine Appearance Slightly cloudy (CLEAR) Urine pH 5.0 (5.0-6.5) Ur Specific [place] 1.010 (1.010-1.025) Urine Protein Trace (NEGATIVE) mg/dL Urine Glucose (UA) Normal (NORMAL) mg/dL Urine Ketones Negative (NEGATIVE) mg/dL Urine Occult Blood Trace (NEGATIVE) Urine Nitrite Positive H (NEGATIVE) Urine Bilirubin Negative (NEGATIVE) Urine Urobilinogen 4 H (NEGATIVE) mg/dL Ur Leukocyte Esterase Large H (NEGATIVE) Urine RBC 0-5 (0-5) Urine WBC 20-30 H (0-5) Ur Squamous Epith Cells Few H (NS,R,O) Urine Bacteria Many H (NS) SARS-CoV-2 RNA (SISI) (NEGATIVE) Result Diagrams: 02/07/21 14:30 02/07/21 14:30 Sepsis Event Note - Focused Exam Vital Signs: Vital Signs Temp Pulse Resp BP Pulse Ox 02/07/21 13:10 98.4 F 104 H 20 110/77 90 L - Problem List (1) Fibromyalgia SNOMED Code(s): 910229612 ICD Code: M79.7 - FIBROMYALGIA Status: Acute Current Visit: Yes (2) Chronic pain syndrome SNOMED Code(s): 571104254 ICD Code: G89.4 - CHRONIC PAIN SYNDROME Status: Acute Current Visit: Yes (3) STANISLAV (generalized anxiety disorder) SNOMED Code(s): 28412745 ICD Code: F41.1 - GENERALIZED ANXIETY DISORDER Status: Acute Current Visit: Yes (4) MDD (major depressive disorder) SNOMED Code(s): 273297886 ICD Code: F32.9 - MAJOR DEPRESSIVE DISORDER, SINGLE EPISODE, UNSPECIFIED Status: Acute Current Visit: Yes (5) HTN (hypertension) SNOMED Code(s): 60875823 ICD Code: I10 - ESSENTIAL (PRIMARY) HYPERTENSION Status: Acute Current Visit: Yes (6) COPD (chronic obstructive pulmonary disease) SNOMED Code(s): 56901208 ICD Code: J44.9 - CHRONIC OBSTRUCTIVE PULMONARY DISEASE, UNSPECIFIED Status: Acute Current Visit: Yes (7) Pneumonia due to COVID-19 virus SNOMED Code(s): 934083776584526130 ICD Code: U07.1 - COVID-19; J12.82 - PNEUMONIA DUE TO CORONAVIRUS DISEASE 2018 Status: Acute Current Visit: Yes (8) Weakness SNOMED Code(s): 81420955 ICD Code: R53.1 - WEAKNESS Status: Acute Current Visit: Yes Problem List Initiated/Reviewed/Updated: Yes Orders Last 24hrs: Active Orders 24 hr Category Date Time Status Patient Status [ADT] Routine ADT 02/07/21 17:13 Active Bedrest Bathroom Privileges [RC] ASDIRECTED Care 02/07/21 17:13 Active Cardiac Monitoring [RC] CONTINUOUS Care 02/07/21 17:15 Active Height and Weight [RC] UPON Care 02/07/21 17:13 Active Intake and Output [RC] QSHIFT Care 02/07/21 17:15 Active Oxygen Therapy [RC] PRN Care 02/07/21 17:13 Active Pulse Oximetry [RC] CONTINUOUS Care 02/07/21 17:16 Active RT Aerosol Therapy [RC] ASDIRECTED Care 02/07/21 17:19 Active Up With Assistance [RC] ASDIRECTED Care 02/07/21 17:13 Active VTE/DVT Education [RC] Per Unit Routine Care 02/07/21 17:13 Active Vital Signs [RC] Q4H Care 02/07/21 17:13 Active Heart Healthy Diet [DIET] Diet 02/07/21 Dinner Ordered Ang Chest [CT] Stat Exams 02/07/21 15:06 Taken BASIC METABOLIC PANEL,BMP [CHEM] AM Lab 02/08/21 05:11 Ordered CBC WITH AUTO DIFF [HEME] AM Lab 02/08/21 05:11 Ordered CULTURE BLOOD [BC] Urgent Lab 02/07/21 14:30 Received CULTURE BLOOD [BC] Urgent Lab 02/07/21 17:05 Received CULTURE URINE [RM] Stat Lab 02/07/21 16:35 Received TROPONIN I [CHEM] AM Lab 02/08/21 05:11 Ordered Acetaminophen [TylenoL] Med 02/07/21 17:13 Active 650 mg PO Q4H PRN Albuterol/Ipratropium [DuoNeb 3.0-0.5 MG/3 ML] Med 02/07/21 21:00 Active 3 ml NEB QIDRT Azithromycin [Zithromax] 500 mg Med 02/07/21 18:00 Active Sodium Chloride 0.9% [Normal Saline AdvBag] 250 ml IV Q24H Enoxaparin [Lovenox] Med 02/07/21 21:00 Active 40 mg SUBCUT BEDTIME Ondansetron [Zofran] Med 02/07/21 17:13 Active 4 mg IV Q6H PRN Sodium Chloride 0.9% [Normal Saline] 1,000 ml Med 02/07/21 17:15 Active IV ASDIRECTED Sodium Chloride 0.9% [Saline Flush] Med 02/07/21 14:16 Active 10 ml FLUSH ASDIRECTED PRN cefTRIAXone [Rocephin] Med 02/08/21 17:00 Active 1 gm IVPUSH Q24H dexAMETHasone [Decadron] Med 02/08/21 09:00 Active 6 mg IVPUSH DAILY Blood Culture x2 Reflex Set [OM.PC] Urgent Oth 02/07/21 16:38 Ordered Peripheral IV Insertion Adult [OM.PC] Routine Oth 02/07/21 14:16 Ordered Resuscitation Status Routine Resus Stat 02/07/21 17:13 Ordered EKG 12 Lead [EK] Routine Ther 02/07/21 14:16 Ordered Medication Orders Acetaminophen (Acetaminophen 325 Mg Tab) 650 mg PO Q4H PRN PRN Reason: Pain (Mild 1-3)/fever Albuterol/Ipratropium (Albuterol/Ipratropium 3.0-0.5 Mg/3 Ml Neb Soln) 3 ml NEB QIDRT ANT Ceftriaxone Sodium (Ceftriaxone 1 Gm Vial) 1 gm IVPUSH Q24H ANT Dexamethasone (Dexamethasone 4 Mg/Ml Sdv) 6 mg IVPUSH DAILY ANT Enoxaparin Sodium (Enoxaparin 40 Mg/0.4 Ml Syringe) 40 mg SUBCUT BEDTIME ANT Sodium Chloride (Normal Saline) 1,000 mls @ 125 mls/hr IV ASDIRECTED ANT Azithromycin 500 mg/ Sodium (Chloride) 250 mls @ 250 mls/hr IV Q24H ANT Ondansetron HCl (Ondansetron 4 Mg/2 Ml Sdv) 4 mg IV Q6H PRN PRN Reason: Nausea/Vomiting Sodium Chloride (Sodium Chloride 0.9% 10 Ml Syringe) 10 ml FLUSH ASDIRECTED PRN PRN Reason: Keep Vein Open Assessment/Plan Comment:: Admit for supportive therapy including oxygen supplementation by nasal prongs. She is outside the window for him to severe. We'll give her Decadron and antibiotics in case this material morning. Resume home medications. Physical therapy and outpatient therapy volitional treatment will be ordered.
[2021-02-07] MEDS ORDERED: OXYCODONE HCL PO PRN (18:40)
[2021-02-07] MEDS ORDERED: ACETAMINOPHEN PO PRN (18:40)
[2021-02-07] MEDS ORDERED: [UNRECOGNIZED DRUG - OTHER] PO PRN (18:40)
[2021-02-07] MEDS: Azithromycin 500 MG in Sodium Chloride 0.9% 250 ML IV SCH (18:49)
[2021-02-07] MEDS: Sodium Chloride 0.9% 10 ML Syringe FLUSH PRN ×3 (18:59→21:04)
[2021-02-07] MEDS ORDERED: Acetaminophen/oxyCODONE 325-5 MG Tab PO PRN (19:04)
[2021-02-07] MEDS ORDERED: oxyCODONE 5 MG Tab PO PRN (19:05)
[2021-02-07] MEDS: Ondansetron 4 MG/2 ML SDV IV PRN (20:06)
[2021-02-07] MEDS: Formoterol/Mometasone 200-5 MCG 8.8 GM Inhaler IH SCH (20:56)
[2021-02-07] MEDS: Enoxaparin 40 MG/0.4 ML Syringe SUBCUT SCH (20:57)
[2021-02-07] MEDS: Albuterol/Ipratropium 3.0-0.5 MG/3 ML Neb Soln NEB SCH (20:57)
[2021-02-07] MEDS: Hydrochlorothiazide 25 MG Tab PO SCH (20:57)
[2021-02-07] MEDS: Doxepin 25 MG Cap PO SCH (20:58)
[2021-02-07] MEDS: Montelukast 10 MG Tab PO SCH (20:58)
[2021-02-07] MEDS ORDERED: Non-Formulary Medication 1 Each (Fluticasone/Salmeterol [Advair 500-50] 14 PUFF/DISKUS Dis INH SCH (21:00)
[2021-02-07] MEDS: Sodium Chloride 0.9% 1,000 ML IV SCH (22:07)
[2021-02-08] MEDS: Pantoprazole 40 MG Tab.CR PO SCH (06:36)
[2021-02-08] MEDS: Albuterol/Ipratropium 3.0-0.5 MG/3 ML Neb Soln NEB SCH ×4 (06:36→20:23)
[2021-02-08] MEDS: Sodium Chloride 0.9% 1,000 ML IV SCH (06:39)
[2021-02-08] MEDS: Dexamethasone 4 MG/ML SDV IVPUSH SCH (08:17)
[2021-02-08] MEDS: Docusate Sodium 100 MG Cap PO SCH (08:18)
[2021-02-08] MEDS: Formoterol/Mometasone 200-5 MCG 8.8 GM Inhaler IH SCH ×2 (08:37→20:23)
[2021-02-08] MEDS: Fish Oil/Omega-3 Fatty Acids 1 Gm Cap PO SCH (08:41)
[2021-02-08] MEDS ORDERED: Venlafaxine 75 MG Tab PO SCH (09:00)
--- NOTE | 2021-02-08 09:07 | PCM.PN ---
- General Info Date of Service: 02/08/21 Subjective Update: Olga feels weak, slightly like she did yesterday. She still has mild cough, no fever in the last 24 hours. Oxygen needs have improved, she hardly needs any oxygen supplementation at this point. Functional Status: Reports: Pain Controlled - Review of Systems General: Reports: Weakness HEENT: Reports: No Symptoms Pulmonary: Reports: Cough - Patient Data Vitals - Most Recent: Last Vital Signs Temp 98.9 F 02/08/21 07:50 Pulse 87 02/08/21 07:50 Resp 20 02/08/21 07:50 BP 120/72 02/08/21 07:50 Pulse Ox 94 L 02/08/21 07:50 Weight - Most Recent: 111.13 kg I&O - Last 24 Hours: Intake & Output 02/07/21 02/08/21 02/08/21 22:59 06:59 14:59 Intake Total 1850 200 Balance 1850 200 Lab Results Last 24 Hours: Laboratory Results - last 24 hr 02/07/21 02/07/21 02/07/21 Range/Units 13:45 14:30 14:30 WBC 7.3 (3.0-10.3) x10-3/uL RBC 4.12 (3.60-5.20) x10(6)uL Hgb 12.9 (11.4-15.5) g/dL Hct 37.7 (34.2-48.2) % MCV 91.4 (76.7-100.5) fL MCH 31.2 (23.9-33.9) pg MCHC 34.2 (31.9-34.8) g/dL RDW 13.4 (12.3-16.5) % Plt Count 312 (151-488) x10(3)uL MPV 8.3 (7.1-12.4) fL Neut % (Auto) 72.2 (30.8-76.2) % Lymph % (Auto) 14.4 L (18.4-52.1) % [place] % (Auto) 11.3 (4.4-15.7) % Eos % (Auto) 1.2 (0.6-8.1) % Baso % (Auto) 0.9 (0.2-1.5) % Neut # (Auto) 5.3 (1.5-6.3) x10-3/uL Lymph # (Auto) 1.0 (1.0-4.4) x10-3/uL [place] # (Auto) 0.8 (0.3-1.0) x10-3/uL Eos # (Auto) 0.1 (0.0-0.8) x10-3/uL Baso # (Auto) 0.1 (0.0-0.1) x10-3/uL Add Manual Diff Neutrophils % (Manual) (46-82) % Band Neutrophils % (0-6) % Lymphocytes % (Manual) (13-37) % Monocytes % (Manual) (4-12) % Blast Cells % (0-0) % D-Dimer, Quantitative 1.64 H (0.0-0.59) mg/LFEU Sodium (135-145) mmol/L Potassium (3.5-5.3) mmol/L Chloride (100-110) mmol/L Carbon Dioxide (21-32) mmol/L BUN (7-18) mg/dL Creatinine (0.55-1.02) mg/dL Est Cr Clr Drug Dosing mL/min Estimated GFR (MDRD) (>60) BUN/Creatinine Ratio (9-20) Glucose (80-116) mg/dL Lactic Acid (0.4-2.0) mmol/L Calcium (8.6-10.2) mg/dL Magnesium (1.8-2.5) mg/dL Total Bilirubin (0.1-1.3) mg/dL AST (5-25) IU/L ALT (12-36) U/L Alkaline Phosphatase (56-112) IU/L Troponin I (4.0-60.3) pg/mL C-Reactive Protein (0.5-0.9) mg/dL NT-Pro-B Natriuret Pep (<=125) pg/mL Total Protein (6.0-8.0) g/dL Albumin (3.2-4.6) g/dL Globulin g/dL Albumin/Globulin Ratio Urine Color (YELLOW) Urine Appearance (CLEAR) Urine pH (5.0-6.5) Ur Specific [place] (1.010-1.025) Urine Protein (NEGATIVE) mg/dL Urine Glucose (UA) (NORMAL) mg/dL Urine Ketones (NEGATIVE) mg/dL Urine Occult Blood (NEGATIVE) Urine Nitrite (NEGATIVE) Urine Bilirubin (NEGATIVE) Urine Urobilinogen (NEGATIVE) mg/dL Ur Leukocyte Esterase (NEGATIVE) Urine RBC (0-5) Urine WBC (0-5) Ur Squamous Epith Cells (NS,R,O) Urine Bacteria (NS) SARS-CoV-2 RNA (SISI) Positive H (NEGATIVE) 02/07/21 02/07/21 02/07/21 Range/Units 14:30 14:30 14:30 WBC (3.0-10.3) x10-3/uL RBC (3.60-5.20) x10(6)uL Hgb (11.4-15.5) g/dL Hct (34.2-48.2) % MCV (76.7-100.5) fL MCH (23.9-33.9) pg MCHC (31.9-34.8) g/dL RDW (12.3-16.5) % Plt Count (151-488) x10(3)uL MPV (7.1-12.4) fL Neut % (Auto) (30.8-76.2) % Lymph % (Auto) (18.4-52.1) % [place] % (Auto) (4.4-15.7) % Eos % (Auto) (0.6-8.1) % Baso % (Auto) (0.2-1.5) % Neut # (Auto) (1.5-6.3) x10-3/uL Lymph # (Auto) (1.0-4.4) x10-3/uL [place] # (Auto) (0.3-1.0) x10-3/uL Eos # (Auto) (0.0-0.8) x10-3/uL Baso # (Auto) (0.0-0.1) x10-3/uL Add Manual Diff Neutrophils % (Manual) (46-82) % Band Neutrophils % (0-6) % Lymphocytes % (Manual) (13-37) % Monocytes % (Manual) (4-12) % Blast Cells % (0-0) % D-Dimer, Quantitative (0.0-0.59) mg/LFEU Sodium 141 (135-145) mmol/L Potassium 3.4 L (3.5-5.3) mmol/L Chloride 104 (100-110) mmol/L Carbon Dioxide 31 (21-32) mmol/L BUN 27 H (7-18) mg/dL Creatinine 1.0 (0.55-1.02) mg/dL Est Cr Clr Drug Dosing 50.37 mL/min Estimated GFR (MDRD) 56 L (>60) BUN/Creatinine Ratio 27.0 H (9-20) Glucose 114 (80-116) mg/dL Lactic Acid 0.8 (0.4-2.0) mmol/L Calcium 9.0 (8.6-10.2) mg/dL Magnesium 2.3 (1.8-2.5) mg/dL Total Bilirubin 0.8 (0.1-1.3) mg/dL AST 63 H D (5-25) IU/L ALT 94 H (12-36) U/L Alkaline Phosphatase 173 H (56-112) IU/L Troponin I 8.5 (4.0-60.3) pg/mL C-Reactive Protein 8.5 H* (0.5-0.9) mg/dL NT-Pro-B Natriuret Pep (<=125) pg/mL Total Protein 7.6 (6.0-8.0) g/dL Albumin 2.7 L (3.2-4.6) g/dL Globulin 4.9 g/dL Albumin/Globulin Ratio 0.6 Urine Color (YELLOW) Urine Appearance (CLEAR) Urine pH (5.0-6.5) Ur Specific [place] (1.010-1.025) Urine Protein (NEGATIVE) mg/dL Urine Glucose (UA) (NORMAL) mg/dL Urine Ketones (NEGATIVE) mg/dL Urine Occult Blood (NEGATIVE) Urine Nitrite (NEGATIVE) Urine Bilirubin (NEGATIVE) Urine Urobilinogen (NEGATIVE) mg/dL Ur Leukocyte Esterase (NEGATIVE) Urine RBC (0-5) Urine WBC (0-5) Ur Squamous Epith Cells (NS,R,O) Urine Bacteria (NS) SARS-CoV-2 RNA (SISI) (NEGATIVE) 02/07/21 02/07/21 02/08/21 Range/Units 14:30 16:35 06:55 WBC 5.2 (3.0-10.3) x10-3/uL RBC 3.71 (3.60-5.20) x10(6)uL Hgb 11.5 (11.4-15.5) g/dL Hct 34.2 (34.2-48.2) % MCV 92.2 (76.7-100.5) fL MCH 31.1 (23.9-33.9) pg MCHC 33.7 (31.9-34.8) g/dL RDW 13.2 (12.3-16.5) % Plt Count 292 (151-488) x10(3)uL MPV 8.0 (7.1-12.4) fL Neut % (Auto) (30.8-76.2) % Lymph % (Auto) (18.4-52.1) % [place] % (Auto) (4.4-15.7) % Eos % (Auto) (0.6-8.1) % Baso % (Auto) (0.2-1.5) % Neut # (Auto) (1.5-6.3) x10-3/uL Lymph # (Auto) (1.0-4.4) x10-3/uL [place] # (Auto) (0.3-1.0) x10-3/uL Eos # (Auto) (0.0-0.8) x10-3/uL Baso # (Auto) (0.0-0.1) x10-3/uL Add Manual Diff Yes Neutrophils % (Manual) 74 (46-82) % Band Neutrophils % 1 (0-6) % Lymphocytes % (Manual) 13 (13-37) % Monocytes % (Manual) 10 (4-12) % Blast Cells % 2 H (0-0) % D-Dimer, Quantitative (0.0-0.59) mg/LFEU Sodium (135-145) mmol/L Potassium (3.5-5.3) mmol/L Chloride (100-110) mmol/L Carbon Dioxide (21-32) mmol/L BUN (7-18) mg/dL Creatinine (0.55-1.02) mg/dL Est Cr Clr Drug Dosing mL/min Estimated GFR (MDRD) (>60) BUN/Creatinine Ratio (9-20) Glucose (80-116) mg/dL Lactic Acid (0.4-2.0) mmol/L Calcium (8.6-10.2) mg/dL Magnesium (1.8-2.5) mg/dL Total Bilirubin (0.1-1.3) mg/dL AST (5-25) IU/L ALT (12-36) U/L Alkaline Phosphatase (56-112) IU/L Troponin I (4.0-60.3) pg/mL C-Reactive Protein (0.5-0.9) mg/dL NT-Pro-B Natriuret Pep 59 (<=125) pg/mL Total Protein (6.0-8.0) g/dL Albumin (3.2-4.6) g/dL Globulin g/dL Albumin/Globulin Ratio Urine [place] (YELLOW) Urine Appearance Slightly cloudy (CLEAR) Urine pH 5.0 (5.0-6.5) Ur Specific [place] 1.010 (1.010-1.025) Urine Protein Trace (NEGATIVE) mg/dL Urine Glucose (UA) Normal (NORMAL) mg/dL Urine Ketones Negative (NEGATIVE) mg/dL Urine Occult Blood Trace (NEGATIVE) Urine Nitrite Positive H (NEGATIVE) Urine Bilirubin Negative (NEGATIVE) Urine Urobilinogen 4 H (NEGATIVE) mg/dL Ur Leukocyte Esterase Large H (NEGATIVE) Urine RBC 0-5 (0-5) Urine WBC 20-30 H (0-5) Ur Squamous Epith Cells Few H (NS,R,O) Urine Bacteria Many H (NS) SARS-CoV-2 RNA (SISI) (NEGATIVE) 02/08/21 02/08/21 Range/Units 06:55 06:55 WBC (3.0-10.3) x10-3/uL RBC (3.60-5.20) x10(6)uL Hgb (11.4-15.5) g/dL Hct (34.2-48.2) % MCV (76.7-100.5) fL MCH (23.9-33.9) pg MCHC (31.9-34.8) g/dL RDW (12.3-16.5) % Plt Count (151-488) x10(3)uL MPV (7.1-12.4) fL Neut % (Auto) (30.8-76.2) % Lymph % (Auto) (18.4-52.1) % [place] % (Auto) (4.4-15.7) % Eos % (Auto) (0.6-8.1) % Baso % (Auto) (0.2-1.5) % Neut # (Auto) (1.5-6.3) x10-3/uL Lymph # (Auto) (1.0-4.4) x10-3/uL [place] # (Auto) (0.3-1.0) x10-3/uL Eos # (Auto) (0.0-0.8) x10-3/uL Baso # (Auto) (0.0-0.1) x10-3/uL Add Manual Diff Neutrophils % (Manual) (46-82) % Band Neutrophils % (0-6) % Lymphocytes % (Manual) (13-37) % Monocytes % (Manual) (4-12) % Blast Cells % (0-0) % D-Dimer, Quantitative (0.0-0.59) mg/LFEU Sodium 146 H (135-145) mmol/L Potassium 3.4 L (3.5-5.3) mmol/L Chloride 108 (100-110) mmol/L Carbon Dioxide 27 (21-32) mmol/L BUN 23 H (7-18) mg/dL Creatinine 0.9 (0.55-1.02) mg/dL Est Cr Clr Drug Dosing 55.97 mL/min Estimated GFR (MDRD) > 60 (>60) BUN/Creatinine Ratio 25.6 H (9-20) Glucose 111 (80-116) mg/dL Lactic Acid (0.4-2.0) mmol/L Calcium 8.2 L (8.6-10.2) mg/dL Magnesium (1.8-2.5) mg/dL Total Bilirubin (0.1-1.3) mg/dL AST (5-25) IU/L ALT (12-36) U/L Alkaline Phosphatase (56-112) IU/L Troponin I 7.6 (4.0-60.3) pg/mL C-Reactive Protein (0.5-0.9) mg/dL NT-Pro-B Natriuret Pep (<=125) pg/mL Total Protein (6.0-8.0) g/dL Albumin (3.2-4.6) g/dL Globulin g/dL Albumin/Globulin Ratio Urine Color (YELLOW) Urine Appearance (CLEAR) Urine pH (5.0-6.5) Ur Specific [place] (1.010-1.025) Urine Protein (NEGATIVE) mg/dL Urine Glucose (UA) (NORMAL) mg/dL Urine Ketones (NEGATIVE) mg/dL Urine Occult Blood (NEGATIVE) Urine Nitrite (NEGATIVE) Urine Bilirubin (NEGATIVE) Urine Urobilinogen (NEGATIVE) mg/dL Ur Leukocyte Esterase (NEGATIVE) Urine RBC (0-5) Urine WBC (0-5) Ur Squamous Epith Cells (NS,R,O) Urine Bacteria (NS) SARS-CoV-2 RNA (SISI) (NEGATIVE) Med Orders - Current: Current Medications Acetaminophen (Acetaminophen 325 Mg Tab) 650 mg PO Q4H PRN PRN Reason: Pain (Mild 1-3)/fever Albuterol/Ipratropium (Albuterol/Ipratropium 3.0-0.5 Mg/3 Ml Neb Soln) 3 ml NEB QIDRT [facility] Last Admin: 02/08/21 06:36 Dose: 3 ml Documented by: Ceftriaxone Sodium (Ceftriaxone 1 Gm Vial) 1 gm IVPUSH Q24H [facility] Dexamethasone (Dexamethasone 4 Mg/Ml Sdv) 6 mg IVPUSH DAILY [facility] Last Admin: 02/08/21 08:17 Dose: 6 mg Documented by: Docusate Sodium (Docusate Sodium 100 Mg Cap) 100 mg PO DAILY [facility] Last Admin: 02/08/21 08:18 Dose: 100 mg Documented by: Doxepin HCl (Doxepin 25 Mg Cap) 100 mg PO BEDTIME [facility] Last Admin: 02/07/21 20:58 Dose: 100 mg Documented by: Enoxaparin Sodium (Enoxaparin 40 Mg/0.4 Ml Syringe) 40 mg SUBCUT BEDTIME [facility] Last Admin: 02/07/21 20:57 Dose: 40 mg Documented by: Fish Oil (Fish Oil/[place]on-3 Fatty Acids 1 Gm Cap) 1 gm PO DAILY [facility] Last Admin: 02/08/21 08:41 Dose: 1 gm Documented by: Hydrochlorothiazide (Hydrochlorothiazide 25 Mg Tab) 25 mg PO BEDTIME [facility] Last Admin: 02/07/21 20:57 Dose: 25 mg Documented by: Azithromycin 500 mg/ Sodium (Chloride) 250 mls @ 250 mls/hr IV Q24H [facility] Last Admin: 02/07/21 18:49 Dose: 250 mls/hr Documented by: Lisinopril (Lisinopril 40 Mg Tab) 40 mg PO DAILY [facility] Mometasone Furoate/Formoterol Fumar (Formoterol/Mometasone 200-5 Mcg 8.8 Gm Inhaler) 2 puff IH BID [facility] Last Admin: 02/08/21 08:37 Dose: 2 inhaler Documented by: Montelukast Sodium (Montelukast 10 Mg Tab) 10 mg PO BEDTIME [facility] Last Admin: 02/07/21 20:58 Dose: 10 mg Documented by: Morphine Sulfate (Morphine 15 Mg Tab.Er) 15 mg PO DAILY PRN PRN Reason: Pain Non-Formulary Medication (Glucosamine/D3/Boswellia Galina [Osteo Bi-Flex Tablet]) 1 tab PO BID [facility] Ondansetron HCl (Ondansetron 4 Mg/2 Ml Sdv) 4 mg IV Q6H PRN PRN Reason: Nausea/Vomiting Last Admin: 02/07/21 20:06 Dose: 4 mg Documented by: Oxybutynin Chloride (Oxybutynin 5 Mg Tab.Er) 10 mg PO DAILY [facility] Oxycodone HCl (Oxycodone 5 Mg Tab) 5 mg PO Q8H PRN PRN Reason: PAIN Oxycodone/Acetaminophen (Acetaminophen/Oxycodone 325-5 Mg Tab) 1 tab PO Q8H PRN PRN Reason: PAIN Pantoprazole Sodium (Pantoprazole 40 Mg Tab.Cr) 40 mg PO ACBREAKFAST [facility] Last Admin: 02/08/21 06:36 Dose: 40 mg Documented by: Sodium Chloride (Sodium Chloride 0.9% 10 Ml Syringe) 10 ml FLUSH ASDIRECTED PRN PRN Reason: Keep Vein Open Last Admin: 02/07/21 21:04 Dose: 10 ml Documented by: Venlafaxine HCl (Venlafaxine 75 Mg Tab) 150 mg PO DAILY [facility] Discontinued Medications Acetaminophen (Acetaminophen 500 Mg Tab) 1,000 mg PO ONETIME ONE Stop: 02/07/21 14:20 Last Admin: 02/07/21 14:25 Dose: 1,000 mg Documented by: Ceftriaxone Sodium (Ceftriaxone 2 Gm Vial) 2 gm IVPUSH ONETIME ONE Stop: 02/07/21 16:41 Last Admin: 02/07/21 18:48 Dose: 2 gm Documented by: Dexamethasone (Dexamethasone 4 Mg/Ml Sdv) 6 mg IVPUSH ONETIME ONE Stop: 02/07/21 16:41 Last Admin: 02/07/21 18:47 Dose: 6 mg Documented by: Sodium Chloride (Normal Saline) 500 mls @ 999 mls/hr IV .BOLUS ONE Stop: 02/07/21 14:49 Last Admin: 02/07/21 14:26 Dose: 999 mls/hr Documented by: Sodium Chloride (Normal Saline) 1,000 mls @ 125 mls/hr IV ASDIRECTED ANT Last Admin: 02/08/21 06:39 Dose: 125 mls/hr Documented by: Influenza Virus Vaccine (Pharmacy To Dose - Influenza Vaccine) 1 each IM ONETIME ONE Stop: 02/07/21 19:03 Influenza Virus Vaccine (Flu Vacc Ek2347-85(6mos Up)/Pf 60 Mcg/0.5 Ml Syringe) 60 mcg IM .ONCE ONE Stop: 02/07/21 19:31 Iopamidol (Iopamidol 755 Mg/Ml 100 Ml Bottle) 100 ml IV . DIRECTED ONE Stop: 02/07/21 15:45 Last Admin: 02/07/21 16:03 Dose: 100 ml Documented by: Non-Formulary Medication (Oxycodone Hcl/Acetaminophen [Percocet 10-325 Mg Tablet]) 1 tab PO Q8H PRN PRN Reason: Pain - Exam Quality Assessment: Supplemental Oxygen General: Alert, Lethargic Lungs: Clear to Auscultation, Crackles Cardiovascular: Regular Rate GI/Abdominal Exam: Normal Bowel Sounds, Soft - Patient Data Lab Results Last 24 hrs: Laboratory Results - last 24 hr 02/07/21 02/07/21 02/07/21 Range/Units 13:45 14:30 14:30 WBC 7.3 (3.0-10.3) x10-3/uL RBC 4.12 (3.60-5.20) x10(6)uL Hgb 12.9 (11.4-15.5) g/dL Hct 37.7 (34.2-48.2) % MCV 91.4 (76.7-100.5) fL MCH 31.2 (23.9-33.9) pg MCHC 34.2 (31.9-34.8) g/dL RDW 13.4 (12.3-16.5) % Plt Count 312 (151-488) x10(3)uL MPV 8.3 (7.1-12.4) fL Neut % (Auto) 72.2 (30.8-76.2) % Lymph % (Auto) 14.4 L (18.4-52.1) % [place] % (Auto) 11.3 (4.4-15.7) % Eos % (Auto) 1.2 (0.6-8.1) % Baso % (Auto) 0.9 (0.2-1.5) % Neut # (Auto) 5.3 (1.5-6.3) x10-3/uL Lymph # (Auto) 1.0 (1.0-4.4) x10-3/uL [place] # (Auto) 0.8 (0.3-1.0) x10-3/uL Eos # (Auto) 0.1 (0.0-0.8) x10-3/uL Baso # (Auto) 0.1 (0.0-0.1) x10-3/uL Add Manual Diff Neutrophils % (Manual) (46-82) % Band Neutrophils % (0-6) % Lymphocytes % (Manual) (13-37) % Monocytes % (Manual) (4-12) % Blast Cells % (0-0) % D-Dimer, Quantitative 1.64 H (0.0-0.59) mg/LFEU Sodium (135-145) mmol/L Potassium (3.5-5.3) mmol/L Chloride (100-110) mmol/L Carbon Dioxide (21-32) mmol/L BUN (7-18) mg/dL Creatinine (0.55-1.02) mg/dL Est Cr Clr Drug Dosing mL/min Estimated GFR (MDRD) (>60) BUN/Creatinine Ratio (9-20) Glucose (80-116) mg/dL Lactic Acid (0.4-2.0) mmol/L Calcium (8.6-10.2) mg/dL Magnesium (1.8-2.5) mg/dL Total Bilirubin (0.1-1.3) mg/dL AST (5-25) IU/L ALT (12-36) U/L Alkaline Phosphatase (56-112) IU/L Troponin I (4.0-60.3) pg/mL C-Reactive Protein (0.5-0.9) mg/dL NT-Pro-B Natriuret Pep (<=125) pg/mL Total Protein (6.0-8.0) g/dL Albumin (3.2-4.6) g/dL Globulin g/dL Albumin/Globulin Ratio Urine Color (YELLOW) Urine Appearance (CLEAR) Urine pH (5.0-6.5) Ur Specific [place] (1.010-1.025) Urine Protein (NEGATIVE) mg/dL Urine Glucose (UA) (NORMAL) mg/dL Urine Ketones (NEGATIVE) mg/dL Urine Occult Blood (NEGATIVE) Urine Nitrite (NEGATIVE) Urine Bilirubin (NEGATIVE) Urine Urobilinogen (NEGATIVE) mg/dL Ur Leukocyte Esterase (NEGATIVE) Urine RBC (0-5) Urine WBC (0-5) Ur Squamous Epith Cells (NS,R,O) Urine Bacteria (NS) SARS-CoV-2 RNA (SISI) Positive H (NEGATIVE) 02/07/21 02/07/21 02/07/21 Range/Units 14:30 14:30 14:30 WBC (3.0-10.3) x10-3/uL RBC (3.60-5.20) x10(6)uL Hgb (11.4-15.5) g/dL Hct (34.2-48.2) % MCV (76.7-100.5) fL MCH (23.9-33.9) pg MCHC (31.9-34.8) g/dL RDW (12.3-16.5) % Plt Count (151-488) x10(3)uL MPV (7.1-12.4) fL Neut % (Auto) (30.8-76.2) % Lymph % (Auto) (18.4-52.1) % [place] % (Auto) (4.4-15.7) % Eos % (Auto) (0.6-8.1) % Baso % (Auto) (0.2-1.5) % Neut # (Auto) (1.5-6.3) x10-3/uL Lymph # (Auto) (1.0-4.4) x10-3/uL [place] # (Auto) (0.3-1.0) x10-3/uL Eos # (Auto) (0.0-0.8) x10-3/uL Baso # (Auto) (0.0-0.1) x10-3/uL Add Manual Diff Neutrophils % (Manual) (46-82) % Band Neutrophils % (0-6) % Lymphocytes % (Manual) (13-37) % Monocytes % (Manual) (4-12) % Blast Cells % (0-0) % D-Dimer, Quantitative (0.0-0.59) mg/LFEU Sodium 141 (135-145) mmol/L Potassium 3.4 L (3.5-5.3) mmol/L Chloride 104 (100-110) mmol/L Carbon Dioxide 31 (21-32) mmol/L BUN 27 H (7-18) mg/dL Creatinine 1.0 (0.55-1.02) mg/dL Est Cr Clr Drug Dosing 50.37 mL/min Estimated GFR (MDRD) 56 L (>60) BUN/Creatinine Ratio 27.0 H (9-20) Glucose 114 (80-116) mg/dL Lactic Acid 0.8 (0.4-2.0) mmol/L Calcium 9.0 (8.6-10.2) mg/dL Magnesium 2.3 (1.8-2.5) mg/dL Total Bilirubin 0.8 (0.1-1.3) mg/dL AST 63 H D (5-25) IU/L ALT 94 H (12-36) U/L Alkaline Phosphatase 173 H (56-112) IU/L Troponin I 8.5 (4.0-60.3) pg/mL C-Reactive Protein 8.5 H* (0.5-0.9) mg/dL NT-Pro-B Natriuret Pep (<=125) pg/mL Total Protein 7.6 (6.0-8.0) g/dL Albumin 2.7 L (3.2-4.6) g/dL Globulin 4.9 g/dL Albumin/Globulin Ratio 0.6 Urine Color (YELLOW) Urine Appearance (CLEAR) Urine pH (5.0-6.5) Ur Specific [place] (1.010-1.025) Urine Protein (NEGATIVE) mg/dL Urine Glucose (UA) (NORMAL) mg/dL Urine Ketones (NEGATIVE) mg/dL Urine Occult Blood (NEGATIVE) Urine Nitrite (NEGATIVE) Urine Bilirubin (NEGATIVE) Urine Urobilinogen (NEGATIVE) mg/dL Ur Leukocyte Esterase (NEGATIVE) Urine RBC (0-5) Urine WBC (0-5) Ur Squamous Epith Cells (NS,R,O) Urine Bacteria (NS) SARS-CoV-2 RNA (SISI) (NEGATIVE) 02/07/21 02/07/21 02/08/21 Range/Units 14:30 16:35 06:55 WBC 5.2 (3.0-10.3) x10-3/uL RBC 3.71 (3.60-5.20) x10(6)uL Hgb 11.5 (11.4-15.5) g/dL Hct 34.2 (34.2-48.2) % MCV 92.2 (76.7-100.5) fL MCH 31.1 (23.9-33.9) pg MCHC 33.7 (31.9-34.8) g/dL RDW 13.2 (12.3-16.5) % Plt Count 292 (151-488) x10(3)uL MPV 8.0 (7.1-12.4) fL Neut % (Auto) (30.8-76.2) % Lymph % (Auto) (18.4-52.1) % [place] % (Auto) (4.4-15.7) % Eos % (Auto) (0.6-8.1) % Baso % (Auto) (0.2-1.5) % Neut # (Auto) (1.5-6.3) x10-3/uL Lymph # (Auto) (1.0-4.4) x10-3/uL [place] # (Auto) (0.3-1.0) x10-3/uL Eos # (Auto) (0.0-0.8) x10-3/uL Baso # (Auto) (0.0-0.1) x10-3/uL Add Manual Diff Yes Neutrophils % (Manual) 74 (46-82) % Band Neutrophils % 1 (0-6) % Lymphocytes % (Manual) 13 (13-37) % Monocytes % (Manual) 10 (4-12) % Blast Cells % 2 H (0-0) % D-Dimer, Quantitative (0.0-0.59) mg/LFEU Sodium (135-145) mmol/L Potassium (3.5-5.3) mmol/L Chloride (100-110) mmol/L Carbon Dioxide (21-32) mmol/L BUN (7-18) mg/dL Creatinine (0.55-1.02) mg/dL Est Cr Clr Drug Dosing mL/min Estimated GFR (MDRD) (>60) BUN/Creatinine Ratio (9-20) Glucose (80-116) mg/dL Lactic Acid (0.4-2.0) mmol/L Calcium (8.6-10.2) mg/dL Magnesium (1.8-2.5) mg/dL Total Bilirubin (0.1-1.3) mg/dL AST (5-25) IU/L ALT (12-36) U/L Alkaline Phosphatase (56-112) IU/L Troponin I (4.0-60.3) pg/mL C-Reactive Protein (0.5-0.9) mg/dL NT-Pro-B Natriuret Pep 59 (<=125) pg/mL Total Protein (6.0-8.0) g/dL Albumin (3.2-4.6) g/dL Globulin g/dL Albumin/Globulin Ratio Urine Color [place] (YELLOW) Urine Appearance Slightly cloudy (CLEAR) Urine pH 5.0 (5.0-6.5) Ur Specific [place] 1.010 (1.010-1.025) Urine Protein Trace (NEGATIVE) mg/dL Urine Glucose (UA) Normal (NORMAL) mg/dL Urine Ketones Negative (NEGATIVE) mg/dL Urine Occult Blood Trace (NEGATIVE) Urine Nitrite Positive H (NEGATIVE) Urine Bilirubin Negative (NEGATIVE) Urine Urobilinogen 4 H (NEGATIVE) mg/dL Ur Leukocyte Esterase Large H (NEGATIVE) Urine RBC 0-5 (0-5) Urine WBC 20-30 H (0-5) Ur Squamous Epith Cells Few H (NS,R,O) Urine Bacteria Many H (NS) SARS-CoV-2 RNA (SISI) (NEGATIVE) 02/08/21 02/08/21 Range/Units 06:55 06:55 WBC (3.0-10.3) x10-3/uL RBC (3.60-5.20) x10(6)uL Hgb (11.4-15.5) g/dL Hct (34.2-48.2) % MCV (76.7-100.5) fL MCH (23.9-33.9) pg MCHC (31.9-34.8) g/dL RDW (12.3-16.5) % Plt Count (151-488) x10(3)uL MPV (7.1-12.4) fL Neut % (Auto) (30.8-76.2) % Lymph % (Auto) (18.4-52.1) % [place] % (Auto) (4.4-15.7) % Eos % (Auto) (0.6-8.1) % Baso % (Auto) (0.2-1.5) % Neut # (Auto) (1.5-6.3) x10-3/uL Lymph # (Auto) (1.0-4.4) x10-3/uL [place] # (Auto) (0.3-1.0) x10-3/uL Eos # (Auto) (0.0-0.8) x10-3/uL Baso # (Auto) (0.0-0.1) x10-3/uL Add Manual Diff Neutrophils % (Manual) (46-82) % Band Neutrophils % (0-6) % Lymphocytes % (Manual) (13-37) % Monocytes % (Manual) (4-12) % Blast Cells % (0-0) % D-Dimer, Quantitative (0.0-0.59) mg/LFEU Sodium 146 H (135-145) mmol/L Potassium 3.4 L (3.5-5.3) mmol/L Chloride 108 (100-110) mmol/L Carbon Dioxide 27 (21-32) mmol/L BUN 23 H (7-18) mg/dL Creatinine 0.9 (0.55-1.02) mg/dL Est Cr Clr Drug Dosing 55.97 mL/min Estimated GFR (MDRD) > 60 (>60) BUN/Creatinine Ratio 25.6 H (9-20) Glucose 111 (80-116) mg/dL Lactic Acid (0.4-2.0) mmol/L Calcium 8.2 L (8.6-10.2) mg/dL Magnesium (1.8-2.5) mg/dL Total Bilirubin (0.1-1.3) mg/dL AST (5-25) IU/L ALT (12-36) U/L Alkaline Phosphatase (56-112) IU/L Troponin I 7.6 (4.0-60.3) pg/mL C-Reactive Protein (0.5-0.9) mg/dL NT-Pro-B Natriuret Pep (<=125) pg/mL Total Protein (6.0-8.0) g/dL Albumin (3.2-4.6) g/dL Globulin g/dL Albumin/Globulin Ratio Urine Color (YELLOW) Urine Appearance (CLEAR) Urine pH (5.0-6.5) Ur Specific [place] (1.010-1.025) Urine Protein (NEGATIVE) mg/dL Urine Glucose (UA) (NORMAL) mg/dL Urine Ketones (NEGATIVE) mg/dL Urine Occult Blood (NEGATIVE) Urine Nitrite (NEGATIVE) Urine Bilirubin (NEGATIVE) Urine Urobilinogen (NEGATIVE) mg/dL Ur Leukocyte Esterase (NEGATIVE) Urine RBC (0-5) Urine WBC (0-5) Ur Squamous Epith Cells (NS,R,O) Urine Bacteria (NS) SARS-CoV-2 RNA (SISI) (NEGATIVE) Result Diagrams: 02/08/21 06:55 02/08/21 06:55 Sepsis Event Note - Evaluation Sepsis Screening Result: No Definite Risk - Focused Exam Vital Signs: Vital Signs Temp Pulse Resp BP Pulse Ox Pulse Ox 02/08/21 07:50 98.9 F 87 20 120/72 94 L 02/08/21 04:00 98.7 F 79 20 100/56 L 94 L 02/08/21 01:27 92 L 02/08/21 00:00 99 F 88 18 122/63 96 02/07/21 21:13 99.1 F 94 20 105/64 93 L - Problem List & Annotations (1) Pneumonia due to COVID-19 virus SNOMED Code(s): 428042026146433032 Code(s): U07.1 - COVID-19; J12.82 - PNEUMONIA DUE TO CORONAVIRUS DISEASE 2019 Status: Acute Current Visit: Yes (2) Fibromyalgia SNOMED Code(s): 780707604 Code(s): M79.7 - FIBROMYALGIA Status: Acute Current Visit: Yes (3) Chronic pain syndrome SNOMED Code(s): 940183747 Code(s): G89.4 - CHRONIC PAIN SYNDROME Status: Acute Current Visit: Yes (4) STANISLAV (generalized anxiety disorder) SNOMED Code(s): 71832299 Code(s): F41.1 - GENERALIZED ANXIETY DISORDER Status: Acute Current Visit: Yes (5) MDD (major depressive disorder) SNOMED Code(s): 565425669 Code(s): F32.9 - MAJOR DEPRESSIVE DISORDER, SINGLE EPISODE, UNSPECIFIED Status: Acute Current Visit: Yes Qualifiers: Major depression recurrence: recurrent Psychotic features: with psychotic features (6) HTN (hypertension) SNOMED Code(s): 21124236 Code(s): I10 - ESSENTIAL (PRIMARY) HYPERTENSION Status: Acute Current Visit: Yes Qualifiers: Hypertension type: primary hypertension Qualified Code(s): I10 - Essential (primary) hypertension (7) COPD (chronic obstructive pulmonary disease) SNOMED Code(s): 76149223 Code(s): J44.9 - CHRONIC OBSTRUCTIVE PULMONARY DISEASE, UNSPECIFIED Status: Acute Current Visit: Yes (8) Weakness SNOMED Code(s): 75602489 Code(s): R53.1 - WEAKNESS Status: Acute Current Visit: Yes - Problem List Review Problem List Initiated/Reviewed/Updated: Yes - My Orders Last 24 Hours: My Active Orders 02/07/21 18:37 OT Evaluation and Treatment [CONS] Routine PT Evaluation and Treatment [CONS] Routine 02/07/21 18:40 Morphine [MS Contin] 15 mg PO DAILY PRN 02/07/21 19:02 Vaccine to be Administered/Admin Charge [RC] ASDIRECTED 02/07/21 19:04 Acetaminophen/oxyCODONE [Percocet 325-5 MG] 1 tab PO Q8H PRN 02/07/21 19:05 oxyCODONE 5 mg PO Q8H PRN 02/07/21 21:00 Doxepin [SINEquan] 100 mg PO BEDTIME Glucosamine/D3/Boswellia [place] [Osteo Bi-Flex Tablet] 1 tab PO BID Mometasone/Formoterol [Dulera 200-5 MCG] 2 puff IH BID Montelukast [Singulair] 10 mg PO BEDTIME hydroCHLOROthiazide 25 mg PO BEDTIME 02/08/21 07:30 Pantoprazole [ProTONIX] 40 mg PO ACBREAKFAST 02/08/21 09:00 Docusate Sodium [Colace] 100 mg PO DAILY Fish Oil/[place]on-3 Fatty Acids [Fish Oil] 1 gm PO DAILY Oxybutynin [Oxybutynin ER] 10 mg PO DAILY Venlafaxine [Effexor] 150 mg PO DAILY lisinopriL [Prinivil] 40 mg PO DAILY 02/08/21 09:03 PERIPH BLOOD SMEAR PATHOLOGIST [HEME] Routine 02/09/21 05:11 BASIC METABOLIC PANEL,BMP [CHEM] AM CBC WITH AUTO DIFF [HEME] AM - Plan Plan:: I have Heplocked the IV. The landscape and yardwork laborer reported seeing blasts. Will order for a peripheral smear. Continue current antibiotics. PT/OT
[2021-02-08] MEDS ORDERED: Venlafaxine 75 MG Cap.ER PO SCH (09:15)
[2021-02-08] MEDS: Oxybutynin 5 MG Tab.ER PO SCH (10:18)
[2021-02-08] MEDS: cefTRIAXone 1 GM Vial IVPUSH SCH (16:58)
[2021-02-08] MEDS: Azithromycin 500 MG in Sodium Chloride 0.9% 250 ML IV SCH (17:12)
[2021-02-08] MEDS: Enoxaparin 40 MG/0.4 ML Syringe SUBCUT SCH (20:23)
[2021-02-08] MEDS: Hydrochlorothiazide 25 MG Tab PO SCH (20:23)
[2021-02-08] MEDS: Montelukast 10 MG Tab PO SCH (20:23)
[2021-02-08] MEDS: Doxepin 25 MG Cap PO SCH (21:18)
[2021-02-09] MEDS: Pantoprazole 40 MG Tab.CR PO SCH (06:33)
[2021-02-09] MEDS: Albuterol/Ipratropium 3.0-0.5 MG/3 ML Neb Soln NEB SCH ×4 (06:33→21:56)
--- NOTE | 2021-02-09 08:59 | PCM.PN ---
- General Info Date of Service: 02/09/21 Subjective Update: Olga feels weak, still has a cough. No other changes overnight,except she did not sleep well due to her RLS Functional Status: Reports: Pain Controlled - Review of Systems General: Reports: Weakness HEENT: Reports: No Symptoms Pulmonary: Reports: Cough Cardiovascular: Reports: No Symptoms Gastrointestinal: Reports: No Symptoms Genitourinary: Reports: No Symptoms - Patient Data Vitals - Most Recent: Last Vital Signs Temp 98.9 F 02/09/21 04:00 Pulse 76 02/09/21 04:00 Resp 18 02/09/21 04:00 BP 128/82 02/09/21 04:00 Pulse Ox 95 02/09/21 04:00 Weight - Most Recent: 111.13 kg Lab Results Last 24 Hours: Laboratory Results - last 24 hr 02/09/21 02/09/21 Range/Units 06:40 06:40 WBC 8.2 (3.0-10.3) x10-3/uL RBC 3.70 (3.60-5.20) x10(6)uL Hgb 11.3 L (11.4-15.5) g/dL Hct 34.2 (34.2-48.2) % MCV 92.6 (76.7-100.5) fL MCH 30.7 (23.9-33.9) pg MCHC 33.1 (31.9-34.8) g/dL RDW 13.3 (12.3-16.5) % Plt Count 332 (151-488) x10(3)uL MPV 7.9 (7.1-12.4) fL Add Manual Diff Yes Neutrophils % (Manual) 73 (46-82) % Lymphocytes % (Manual) 19 (13-37) % Monocytes % (Manual) 7 (4-12) % Eosinophils % (Manual) 1 (0-5) % Sodium 147 H (135-145) mmol/L Potassium 2.6 L* (3.5-5.3) mmol/L Chloride 108 (100-110) mmol/L Carbon Dioxide 29 (21-32) mmol/L BUN 18 (7-18) mg/dL Creatinine 0.6 (0.55-1.02) mg/dL Est Cr Clr Drug Dosing 83.95 mL/min Estimated GFR (MDRD) > 60 (>60) BUN/Creatinine Ratio 30.0 H (9-20) Glucose 92 (80-116) mg/dL Calcium 8.0 L (8.6-10.2) mg/dL Ag Results Last 24 Hours: Microbiology 02/07/21 16:35 Urine Culture - Final Urine, Clean Catch Escherichia Coli 02/07/21 14:30 Aerobic Blood Culture - Preliminary Blood - Venous NO GROWTH AFTER 1 DAY Anaerobic Blood Culture - Preliminary NO GROWTH AFTER 1 DAY 02/07/21 17:05 Aerobic Blood Culture - Preliminary Blood - Venous - Lab Draw NO GROWTH AFTER 1 DAY Anaerobic Blood Culture - Preliminary NO GROWTH AFTER 1 DAY Med Orders - Current: Current Medications Acetaminophen (Acetaminophen 325 Mg Tab) 650 mg PO Q4H PRN PRN Reason: Pain (Mild 1-3)/fever Albuterol/Ipratropium (Albuterol/Ipratropium 3.0-0.5 Mg/3 Ml Neb Soln) 3 ml NEB QIDRT [facility] Last Admin: 02/09/21 06:33 Dose: 3 ml Documented by: Ceftriaxone Sodium (Ceftriaxone 1 Gm Vial) 1 gm IVPUSH Q24H [facility] Last Admin: 02/08/21 16:58 Dose: 1 gm Documented by: Dexamethasone (Dexamethasone 4 Mg/Ml Sdv) 6 mg IVPUSH DAILY [facility] Last Admin: 02/08/21 08:17 Dose: 6 mg Documented by: Docusate Sodium (Docusate Sodium 100 Mg Cap) 100 mg PO DAILY [facility] Last Admin: 02/08/21 08:18 Dose: 100 mg Documented by: Doxepin HCl (Doxepin 25 Mg Cap) 100 mg PO BEDTIME [facility] Last Admin: 02/08/21 21:18 Dose: 100 mg Documented by: Enoxaparin Sodium (Enoxaparin 40 Mg/0.4 Ml Syringe) 40 mg SUBCUT BEDTIME [facility] Last Admin: 02/08/21 20:23 Dose: 40 mg Documented by: Fish Oil (Fish Oil/[place]-3 Fatty Acids 1 Gm Cap) 1 gm PO DAILY [facility] Last Admin: 02/08/21 08:41 Dose: 1 gm Documented by: Azithromycin 500 mg/ Sodium (Chloride) 250 mls @ 250 mls/hr IV Q24H [facility] Last Admin: 02/08/21 17:12 Dose: 250 mls/hr Documented by: Lisinopril (Lisinopril 40 Mg Tab) 40 mg PO DAILY [facility] Last Admin: 02/08/21 10:19 Dose: 40 mg Documented by: Mometasone Furoate/Formoterol Fumar (Formoterol/Mometasone 200-5 Mcg 8.8 Gm Inhaler) 2 puff IH BID [facility] Last Admin: 02/08/21 20:23 Dose: 1 inhaler Documented by: Montelukast Sodium (Montelukast 10 Mg Tab) 10 mg PO BEDTIME [facility] Last Admin: 02/08/21 20:23 Dose: 10 mg Documented by: Morphine Sulfate (Morphine 15 Mg Tab.Er) 15 mg PO DAILY PRN PRN Reason: Pain Non-Formulary Medication (Glucosamine/D3/Boswellia Galina [Osteo Bi-Flex Tablet]) 1 tab PO BID [facility] Ondansetron HCl (Ondansetron 4 Mg/2 Ml Sdv) 4 mg IV Q6H PRN PRN Reason: Nausea/Vomiting Last Admin: 02/07/21 20:06 Dose: 4 mg Documented by: Oxybutynin Chloride (Oxybutynin 5 Mg Tab.Er) 10 mg PO DAILY [facility] Last Admin: 02/08/21 10:18 Dose: 10 mg Documented by: Oxycodone HCl (Oxycodone 5 Mg Tab) 5 mg PO Q8H PRN PRN Reason: PAIN Oxycodone/Acetaminophen (Acetaminophen/Oxycodone 325-5 Mg Tab) 1 tab PO Q8H PRN PRN Reason: PAIN Pantoprazole Sodium (Pantoprazole 40 Mg Tab.Cr) 40 mg PO DAILY@0600 [facility] Potassium Chloride (Potassium Chloride 20 Meq Tab.Er) 40 meq PO TID [facility] Sodium Chloride (Sodium Chloride 0.9% 10 Ml Syringe) 10 ml FLUSH ASDIRECTED PRN PRN Reason: Keep Vein Open Last Admin: 02/07/21 21:04 Dose: 10 ml Documented by: Venlafaxine HCl (Venlafaxine 150 Mg Cap.Er) 150 mg PO DAILY [facility] Discontinued Medications Acetaminophen (Acetaminophen 500 Mg Tab) 1,000 mg PO ONETIME ONE Stop: 02/07/21 14:20 Last Admin: 02/07/21 14:25 Dose: 1,000 mg Documented by: Ceftriaxone Sodium (Ceftriaxone 2 Gm Vial) 2 gm IVPUSH ONETIME ONE Stop: 02/07/21 16:41 Last Admin: 02/07/21 18:48 Dose: 2 gm Documented by: Dexamethasone (Dexamethasone 4 Mg/Ml Sdv) 6 mg IVPUSH ONETIME ONE Stop: 02/07/21 16:41 Last Admin: 02/07/21 18:47 Dose: 6 mg Documented by: Hydrochlorothiazide (Hydrochlorothiazide 25 Mg Tab) 25 mg PO BEDTIME ANT Last Admin: 02/08/21 20:23 Dose: 25 mg Documented by: Sodium Chloride (Normal Saline) 500 mls @ 999 mls/hr IV .BOLUS ONE Stop: 02/07/21 14:49 Last Admin: 02/07/21 14:26 Dose: 999 mls/hr Documented by: Sodium Chloride (Normal Saline) 1,000 mls @ 125 mls/hr IV ASDIRECTED [facility] Last Admin: 02/08/21 06:39 Dose: 125 mls/hr Documented by: Influenza Virus Vaccine (Pharmacy To Dose - Influenza Vaccine) 1 each IM ONETIME ONE Stop: 02/07/21 19:03 Influenza Virus Vaccine (Flu Vacc Ig2012-82(6mos Up)/Pf 60 Mcg/0.5 Ml Syringe) 60 mcg IM .ONCE ONE Stop: 02/07/21 19:31 Iopamidol (Iopamidol 755 Mg/Ml 100 Ml Bottle) 100 ml IV . DIRECTED ONE Stop: 02/07/21 15:45 Last Admin: 02/07/21 16:03 Dose: 100 ml Documented by: Non-Formulary Medication (Oxycodone Hcl/Acetaminophen [Percocet 10-325 Mg Tablet]) 1 tab PO Q8H PRN PRN Reason: Pain Pantoprazole Sodium (Pantoprazole 40 Mg Tab.Cr) 40 mg PO ACBREAKFAST [facility] Last Admin: 02/09/21 06:33 Dose: 40 mg Documented by: Venlafaxine HCl (Venlafaxine 75 Mg Tab) 150 mg PO DAILY [facility] Venlafaxine HCl (Venlafaxine 75 Mg Cap.Er) 150 mg PO DAILY [facility] Last Admin: 02/08/21 10:19 Dose: 150 mg Documented by: - Exam Quality Assessment: Supplemental Oxygen General: Alert, Oriented, Cooperative HEENT: Pupils Equal Neck: Supple Lungs: Crackles Cardiovascular: Regular Rate GI/Abdominal Exam: Soft Extremities: Normal Inspection Psy/Mental Status: Alert - Patient Data Lab Results Last 24 hrs: Laboratory Results - last 24 hr 02/09/21 02/09/21 Range/Units 06:40 06:40 WBC 8.2 (3.0-10.3) x10-3/uL RBC 3.70 (3.60-5.20) x10(6)uL Hgb 11.3 L (11.4-15.5) g/dL Hct 34.2 (34.2-48.2) % MCV 92.6 (76.7-100.5) fL MCH 30.7 (23.9-33.9) pg MCHC 33.1 (31.9-34.8) g/dL RDW 13.3 (12.3-16.5) % Plt Count 332 (151-488) x10(3)uL MPV 7.9 (7.1-12.4) fL Add Manual Diff Yes Neutrophils % (Manual) 73 (46-82) % Lymphocytes % (Manual) 19 (13-37) % Monocytes % (Manual) 7 (4-12) % Eosinophils % (Manual) 1 (0-5) % Sodium 147 H (135-145) mmol/L Potassium 2.6 L* (3.5-5.3) mmol/L Chloride 108 (100-110) mmol/L Carbon Dioxide 29 (21-32) mmol/L BUN 18 (7-18) mg/dL Creatinine 0.6 (0.55-1.02) mg/dL Est Cr Clr Drug Dosing 83.95 mL/min Estimated GFR (MDRD) > 60 (>60) BUN/Creatinine Ratio 30.0 H (9-20) Glucose 92 (80-116) mg/dL Calcium 8.0 L (8.6-10.2) mg/dL Result Diagrams: 02/09/21 06:40 02/09/21 06:40 Ag Results Last 24 hrs: Microbiology 02/07/21 16:35 Urine Culture - Final Urine, Clean Catch Escherichia Coli 02/07/21 14:30 Aerobic Blood Culture - Preliminary Blood - Venous NO GROWTH AFTER 1 DAY Anaerobic Blood Culture - Preliminary NO GROWTH AFTER 1 DAY 02/07/21 17:05 Aerobic Blood Culture - Preliminary Blood - Venous - Lab Draw NO GROWTH AFTER 1 DAY Anaerobic Blood Culture - Preliminary NO GROWTH AFTER 1 DAY Sepsis Event Note - Evaluation Sepsis Screening Result: No Definite Risk - Focused Exam Vital Signs: Vital Signs Temp Pulse Resp BP Pulse Ox 02/09/21 04:00 98.9 F 76 18 128/82 95 02/09/21 00:00 98.8 F 67 18 153/92 H 93 L - Problem List & Annotations (1) Pneumonia due to COVID-19 virus SNOMED Code(s): 333755091082003942 Code(s): U07.1 - COVID-19; J12.82 - PNEUMONIA DUE TO CORONAVIRUS DISEASE 2018 Status: Acute Current Visit: Yes (2) Fibromyalgia SNOMED Code(s): 001388125 Code(s): M79.7 - FIBROMYALGIA Status: Acute Current Visit: Yes (3) Chronic pain syndrome SNOMED Code(s): 053054613 Code(s): G89.4 - CHRONIC PAIN SYNDROME Status: Acute Current Visit: Yes (4) STANISLAV (generalized anxiety disorder) SNOMED Code(s): 42719054 Code(s): F41.1 - GENERALIZED ANXIETY DISORDER Status: Acute Current Visit: Yes (5) MDD (major depressive disorder) SNOMED Code(s): 109952279 Code(s): F32.9 - MAJOR DEPRESSIVE DISORDER, SINGLE EPISODE, UNSPECIFIED Status: Acute Current Visit: Yes Qualifiers: Major depression recurrence: recurrent Psychotic features: with psychotic features (6) HTN (hypertension) SNOMED Code(s): 61550101 Code(s): I10 - ESSENTIAL (PRIMARY) HYPERTENSION Status: Acute Current Visit: Yes Qualifiers: Hypertension type: primary hypertension Qualified Code(s): I10 - Essential (primary) hypertension (7) COPD (chronic obstructive pulmonary disease) SNOMED Code(s): 19452019 Code(s): J44.9 - CHRONIC OBSTRUCTIVE PULMONARY DISEASE, UNSPECIFIED Status: Acute Current Visit: Yes (8) Weakness SNOMED Code(s): 70056424 Code(s): R53.1 - WEAKNESS Status: Acute Current Visit: Yes (9) RLS (restless legs syndrome) SNOMED Code(s): 79885590 Code(s): G25.81 - RESTLESS LEGS SYNDROME Status: Acute Current Visit: Yes (10) Hypokalemia SNOMED Code(s): 85481625 Code(s): E87.6 - HYPOKALEMIA Status: Acute Current Visit: Yes - Problem List Review Problem List Initiated/Reviewed/Updated: Yes - My Orders Last 24 Hours: My Active Orders 02/08/21 09:00 Docusate Sodium [Colace] 100 mg PO DAILY Fish Oil/[place]-3 Fatty Acids [Fish Oil] 1 gm PO DAILY Oxybutynin [Oxybutynin ER] 10 mg PO DAILY lisinopriL [Prinivil] 40 mg PO DAILY 02/08/21 09:03 PERIPH BLOOD SMEAR PATHOLOGIST [HEME] Routine 02/08/21 22:00 Incentive Spirometry [RT Incentive Spirometry] [RC] Q2HWA 02/09/21 09:00 Potassium Chloride [Klor-Con M20] 40 meq PO TID Venlafaxine [Effexor XR] 150 mg PO DAILY 02/10/21 05:11 BASIC METABOLIC PANEL,BMP [CHEM] AM CBC WITH AUTO DIFF [HEME] AM 02/10/21 06:00 Pantoprazole [ProTONIX] 40 mg PO DAILY@0600 - Plan Plan:: Potassium is 2.6. I will continue with current therapy, with exception of hydrochlorothiazide. I will also replace potassium with 40 mEq 3 times a day. We'll try Requip for restless legs at night. Awaiting physical therapy evaluation.
[2021-02-09] MEDS: Dexamethasone 4 MG/ML SDV IVPUSH SCH (09:11)
[2021-02-09] MEDS: Fish Oil/Omega-3 Fatty Acids 1 Gm Cap PO SCH (09:12)
[2021-02-09] MEDS: Oxybutynin 5 MG Tab.ER PO SCH (09:12)
[2021-02-09] MEDS: Venlafaxine 150 MG Cap.ER PO SCH (09:12)
[2021-02-09] MEDS: Docusate Sodium 100 MG Cap PO SCH (09:13)
[2021-02-09] MEDS: Formoterol/Mometasone 200-5 MCG 8.8 GM Inhaler IH SCH ×2 (09:13→21:55)
[2021-02-09] MEDS: Sodium Chloride 0.9% 10 ML Syringe FLUSH PRN (09:15)
[2021-02-09] MEDS: Potassium Chloride 20 MEQ Tab.ER PO SCH ×3 (09:20→21:56)
[2021-02-09] MEDS: Benzonatate 100 MG Cap PO PRN ×2 (10:36→17:35)
[2021-02-09] MEDS ORDERED: rOPINIRole 0.5 MG Tab PO PRN (14:49)
[2021-02-09] MEDS: Morphine 15 MG Tab.ER PO PRN (15:29)
[2021-02-09] MEDS: cefTRIAXone 1 GM Vial IVPUSH SCH (17:22)
[2021-02-09] MEDS: Azithromycin 500 MG in Sodium Chloride 0.9% 250 ML IV SCH (17:22)
[2021-02-09] MEDS: Ondansetron 4 MG/2 ML SDV IV PRN (17:40)
[2021-02-09] MEDS: Enoxaparin 40 MG/0.4 ML Syringe SUBCUT SCH (21:57)
[2021-02-09] MEDS: rOPINIRole 0.5 MG Tab PO SCH (21:58)
[2021-02-09] MEDS: Doxepin 25 MG Cap PO SCH (21:58)
[2021-02-09] MEDS: Montelukast 10 MG Tab PO SCH (21:59)
[2021-02-10] MEDS: Albuterol/Ipratropium 3.0-0.5 MG/3 ML Neb Soln NEB SCH ×4 (06:33→21:16)
[2021-02-10] MEDS: Pantoprazole 40 MG Tab.CR PO SCH (06:34)
[2021-02-10] MEDS: Formoterol/Mometasone 200-5 MCG 8.8 GM Inhaler IH SCH ×2 (08:14→21:15)
[2021-02-10] MEDS: Docusate Sodium 100 MG Cap PO SCH (08:14)
[2021-02-10] MEDS: Venlafaxine 150 MG Cap.ER PO SCH (08:14)
[2021-02-10] MEDS: Potassium Chloride 20 MEQ Tab.ER PO SCH (08:15)
[2021-02-10] MEDS: Oxybutynin 5 MG Tab.ER PO SCH (08:15)
[2021-02-10] MEDS: Fish Oil/Omega-3 Fatty Acids 1 Gm Cap PO SCH (08:16)
--- NOTE | 2021-02-10 08:54 | PCM.PN ---
- General Info Date of Service: 02/10/21 Subjective Update: Olga complains of a cough, but weakness is improving. And she is off oxygenation.She has improved on her restless legs Functional Status: Reports: Pain Controlled, Tolerating Diet - Review of Systems HEENT: Reports: No Symptoms Pulmonary: Reports: Cough Cardiovascular: Reports: No Symptoms Gastrointestinal: Reports: No Symptoms - Patient Data Vitals - Most Recent: Last Vital Signs Temp 98.4 F 02/10/21 06:30 Pulse 76 02/10/21 06:30 Resp 18 02/10/21 06:30 BP 119/75 02/10/21 06:30 Pulse Ox 96 02/10/21 06:30 Weight - Most Recent: 111.13 kg I&O - Last 24 Hours: Intake & Output 02/09/21 02/10/21 02/10/21 22:59 06:59 14:59 Intake Total 250 Balance 250 Lab Results Last 24 Hours: Laboratory Results - last 24 hr 02/08/21 02/10/21 02/10/21 Range/Units 09:04 06:25 06:25 WBC 6.7 (3.0-10.3) x10-3/uL RBC 3.57 L (3.60-5.20) x10(6)uL Hgb 10.9 L (11.4-15.5) g/dL Hct 33.1 L (34.2-48.2) % MCV 92.8 (76.7-100.5) fL MCH 30.6 (23.9-33.9) pg MCHC 33.0 (31.9-34.8) g/dL RDW 13.1 (12.3-16.5) % Plt Count 360 (151-488) x10(3)uL MPV 7.6 (7.1-12.4) fL Neut % (Auto) 60.6 (30.8-76.2) % Lymph % (Auto) 26.4 (18.4-52.1) % [place] % (Auto) 10.9 (4.4-15.7) % Eos % (Auto) 1.6 (0.6-8.1) % Baso % (Auto) 0.5 (0.2-1.5) % Neut # (Auto) 4.1 (1.5-6.3) x10-3/uL Lymph # (Auto) 1.8 (1.0-4.4) x10-3/uL [place] # (Auto) 0.7 (0.3-1.0) x10-3/uL Eos # (Auto) 0.1 (0.0-0.8) x10-3/uL Baso # (Auto) 0.0 (0.0-0.1) x10-3/uL Smear Path Review See note Sodium 146 H (135-145) mmol/L Potassium 4.3 D (3.5-5.3) mmol/L Chloride 110 (100-110) mmol/L Carbon Dioxide 30 (21-32) mmol/L BUN 15 (7-18) mg/dL Creatinine 0.8 (0.55-1.02) mg/dL Est Cr Clr Drug Dosing 62.96 mL/min Estimated GFR (MDRD) > 60 (>60) BUN/Creatinine Ratio 18.8 (9-20) Glucose 89 (80-116) mg/dL Calcium 8.4 L (8.6-10.2) mg/dL Ag Results Last 24 Hours: Microbiology 02/07/21 14:30 Aerobic Blood Culture - Preliminary Blood - Venous NO GROWTH AFTER 2 DAYS Anaerobic Blood Culture - Preliminary NO GROWTH AFTER 2 DAYS 02/07/21 17:05 Aerobic Blood Culture - Preliminary Blood - Venous - Lab Draw NO GROWTH AFTER 2 DAYS Anaerobic Blood Culture - Preliminary NO GROWTH AFTER 2 DAYS 02/07/21 16:35 Urine Culture - Final Urine, Clean Catch Escherichia Coli Med Orders - Current: Current Medications Acetaminophen (Acetaminophen 325 Mg Tab) 650 mg PO Q4H PRN PRN Reason: Pain (Mild 1-3)/fever Albuterol/Ipratropium (Albuterol/Ipratropium 3.0-0.5 Mg/3 Ml Neb Soln) 3 ml NEB QIDRT ANT Last Admin: 02/10/21 06:33 Dose: 3 ml Documented by: Benzonatate (Benzonatate 100 Mg Cap) 200 mg PO TID PRN PRN Reason: Cough Last Admin: 02/09/21 17:35 Dose: 200 mg Documented by: Ceftriaxone Sodium (Ceftriaxone 1 Gm Vial) 1 gm IVPUSH Q24H [facility] Last Admin: 02/09/21 17:22 Dose: 1 gm Documented by: Dexamethasone (Dexamethasone 4 Mg/Ml Sdv) 6 mg IVPUSH DAILY [facility] Last Admin: 02/09/21 09:11 Dose: 6 mg Documented by: Docusate Sodium (Docusate Sodium 100 Mg Cap) 100 mg PO DAILY [facility] Last Admin: 02/10/21 08:14 Dose: 100 mg Documented by: Doxepin HCl (Doxepin 25 Mg Cap) 100 mg PO BEDTIME [facility] Last Admin: 02/09/21 21:58 Dose: 100 mg Documented by: Enoxaparin Sodium (Enoxaparin 40 Mg/0.4 Ml Syringe) 40 mg SUBCUT BEDTIME [facility] Last Admin: 02/09/21 21:57 Dose: 40 mg Documented by: Fish Oil (Fish Oil/[place]-3 Fatty Acids 1 Gm Cap) 1 gm PO DAILY [facility] Last Admin: 02/10/21 08:16 Dose: 1 gm Documented by: Azithromycin 500 mg/ Sodium (Chloride) 250 mls @ 250 mls/hr IV Q24H [facility] Last Admin: 02/09/21 17:22 Dose: 250 mls/hr Documented by: Lisinopril (Lisinopril 40 Mg Tab) 40 mg PO DAILY [facility] Last Admin: 02/10/21 08:16 Dose: 40 mg Documented by: Mometasone Furoate/Formoterol Fumar (Formoterol/Mometasone 200-5 Mcg 8.8 Gm Inhaler) 2 puff IH BID [facility] Last Admin: 02/10/21 08:14 Dose: 2 puff Documented by: Montelukast Sodium (Montelukast 10 Mg Tab) 10 mg PO BEDTIME [facility] Last Admin: 02/09/21 21:59 Dose: 10 mg Documented by: Morphine Sulfate (Morphine 15 Mg Tab.Er) 15 mg PO DAILY PRN PRN Reason: Pain Last Admin: 02/09/21 15:29 Dose: 15 mg Documented by: Ondansetron HCl (Ondansetron 4 Mg/2 Ml Sdv) 4 mg IV Q6H PRN PRN Reason: Nausea/Vomiting Last Admin: 02/09/21 17:40 Dose: 4 mg Documented by: Oxybutynin Chloride (Oxybutynin 5 Mg Tab.Er) 10 mg PO DAILY [facility] Last Admin: 02/10/21 08:15 Dose: 10 mg Documented by: Oxycodone HCl (Oxycodone 5 Mg Tab) 5 mg PO Q8H PRN PRN Reason: PAIN Oxycodone/Acetaminophen (Acetaminophen/Oxycodone 325-5 Mg Tab) 1 tab PO Q8H PRN PRN Reason: PAIN Pantoprazole Sodium (Pantoprazole 40 Mg Tab.Cr) 40 mg PO DAILY@0600 [facility] Last Admin: 02/10/21 06:34 Dose: 40 mg Documented by: Potassium Chloride (Potassium Chloride 20 Meq Tab.Er) 40 meq PO TID [facility] Last Admin: 02/10/21 08:15 Dose: 40 meq Documented by: Ropinirole HCl (Ropinirole 0.5 Mg Tab) 0.5 mg PO BEDTIME [facility] Last Admin: 02/09/21 21:58 Dose: 0.5 mg Documented by: Ropinirole HCl (Ropinirole 0.5 Mg Tab) 0.5 mg PO BID PRN PRN Reason: Restless Legs Last Admin: 02/09/21 15:29 Dose: 0.5 mg Documented by: Sodium Chloride (Sodium Chloride 0.9% 10 Ml Syringe) 10 ml FLUSH ASDIRECTED PRN PRN Reason: Keep Vein Open Last Admin: 02/09/21 09:15 Dose: 10 ml Documented by: Venlafaxine HCl (Venlafaxine 150 Mg Cap.Er) 150 mg PO DAILY [facility] Last Admin: 02/10/21 08:14 Dose: 150 mg Documented by: Discontinued Medications Acetaminophen (Acetaminophen 500 Mg Tab) 1,000 mg PO ONETIME ONE Stop: 02/07/21 14:20 Last Admin: 02/07/21 14:25 Dose: 1,000 mg Documented by: Ceftriaxone Sodium (Ceftriaxone 2 Gm Vial) 2 gm IVPUSH ONETIME ONE Stop: 02/07/21 16:41 Last Admin: 02/07/21 18:48 Dose: 2 gm Documented by: Dexamethasone (Dexamethasone 4 Mg/Ml Sdv) 6 mg IVPUSH ONETIME ONE Stop: 02/07/21 16:41 Last Admin: 02/07/21 18:47 Dose: 6 mg Documented by: Hydrochlorothiazide (Hydrochlorothiazide 25 Mg Tab) 25 mg PO BEDTIME [facility] Last Admin: 02/08/21 20:23 Dose: 25 mg Documented by: Sodium Chloride (Normal Saline) 500 mls @ 999 mls/hr IV .BOLUS ONE Stop: 02/07/21 14:49 Last Admin: 02/07/21 14:26 Dose: 999 mls/hr Documented by: Sodium Chloride (Normal Saline) 1,000 mls @ 125 mls/hr IV ASDIRECTED [facility] Last Admin: 02/08/21 06:39 Dose: 125 mls/hr Documented by: Influenza Virus Vaccine (Pharmacy To Dose - Influenza Vaccine) 1 each IM ONETIME ONE Stop: 02/07/21 19:03 Influenza Virus Vaccine (Flu Vacc Ar2160-85(6mos Up)/Pf 60 Mcg/0.5 Ml Syringe) 60 mcg IM .ONCE ONE Stop: 02/07/21 19:31 Iopamidol (Iopamidol 755 Mg/Ml 100 Ml Bottle) 100 ml IV . DIRECTED ONE Stop: 02/07/21 15:45 Last Admin: 02/07/21 16:03 Dose: 100 ml Documented by: Non-Formulary Medication (Glucosamine/D3/Boswellia Galina [Osteo Bi-Flex Tablet]) 1 tab PO BID [facility] Last Admin: 02/09/21 23:47 Dose: Not Given Documented by: Non-Formulary Medication (Oxycodone Hcl/Acetaminophen [Percocet 10-325 Mg Tablet]) 1 tab PO Q8H PRN PRN Reason: Pain Pantoprazole Sodium (Pantoprazole 40 Mg Tab.Cr) 40 mg PO ACBREAKFAST [facility] Last Admin: 02/09/21 06:33 Dose: 40 mg Documented by: Venlafaxine HCl (Venlafaxine 75 Mg Tab) 150 mg PO DAILY [facility] Last Admin: 02/09/21 23:44 Dose: Not Given Documented by: Venlafaxine HCl (Venlafaxine 75 Mg Cap.Er) 150 mg PO DAILY [facility] Last Admin: 02/08/21 10:19 Dose: 150 mg Documented by: - Exam General: Alert, Oriented HEENT: Pupils Equal Neck: Supple Lungs: Clear to Auscultation Cardiovascular: Regular Rate GI/Abdominal Exam: Normal Bowel Sounds - Patient Data Lab Results Last 24 hrs: Laboratory Results - last 24 hr 02/08/21 02/10/21 02/10/21 Range/Units 09:04 06:25 06:25 WBC 6.7 (3.0-10.3) x10-3/uL RBC 3.57 L (3.60-5.20) x10(6)uL Hgb 10.9 L (11.4-15.5) g/dL Hct 33.1 L (34.2-48.2) % MCV 92.8 (76.7-100.5) fL MCH 30.6 (23.9-33.9) pg MCHC 33.0 (31.9-34.8) g/dL RDW 13.1 (12.3-16.5) % Plt Count 360 (151-488) x10(3)uL MPV 7.6 (7.1-12.4) fL Neut % (Auto) 60.6 (30.8-76.2) % Lymph % (Auto) 26.4 (18.4-52.1) % [place] % (Auto) 10.9 (4.4-15.7) % Eos % (Auto) 1.6 (0.6-8.1) % Baso % (Auto) 0.5 (0.2-1.5) % Neut # (Auto) 4.1 (1.5-6.3) x10-3/uL Lymph # (Auto) 1.8 (1.0-4.4) x10-3/uL [place] # (Auto) 0.7 (0.3-1.0) x10-3/uL Eos # (Auto) 0.1 (0.0-0.8) x10-3/uL Baso # (Auto) 0.0 (0.0-0.1) x10-3/uL Smear Path Review See note Sodium 146 H (135-145) mmol/L Potassium 4.3 D (3.5-5.3) mmol/L Chloride 110 (100-110) mmol/L Carbon Dioxide 30 (21-32) mmol/L BUN 15 (7-18) mg/dL Creatinine 0.8 (0.55-1.02) mg/dL Est Cr Clr Drug Dosing 62.96 mL/min Estimated GFR (MDRD) > 60 (>60) BUN/Creatinine Ratio 18.8 (9-20) Glucose 89 (80-116) mg/dL Calcium 8.4 L (8.6-10.2) mg/dL Result Diagrams: 02/10/21 06:25 02/10/21 06:25 Ag Results Last 24 hrs: Microbiology 02/07/21 14:30 Aerobic Blood Culture - Preliminary Blood - Venous NO GROWTH AFTER 2 DAYS Anaerobic Blood Culture - Preliminary NO GROWTH AFTER 2 DAYS 02/07/21 17:05 Aerobic Blood Culture - Preliminary Blood - Venous - Lab Draw NO GROWTH AFTER 2 DAYS Anaerobic Blood Culture - Preliminary NO GROWTH AFTER 2 DAYS 02/07/21 16:35 Urine Culture - Final Urine, Clean Catch Escherichia Coli Sepsis Event Note - Evaluation Sepsis Screening Result: No Definite Risk - Focused Exam Vital Signs: Vital Signs Temp Pulse Resp BP Pulse Ox 02/10/21 06:30 98.4 F 76 18 119/75 96 02/10/21 00:00 18 02/09/21 22:00 99.5 F 76 20 99/54 L 95 - Problem List & Annotations (1) Pneumonia due to COVID-19 virus SNOMED Code(s): 995396719021989390 Code(s): U07.1 - COVID-19; J12.82 - PNEUMONIA DUE TO CORONAVIRUS DISEASE 2018 Status: Acute Current Visit: Yes (2) Fibromyalgia SNOMED Code(s): 430961432 Code(s): M79.7 - FIBROMYALGIA Status: Acute Current Visit: Yes (3) Chronic pain syndrome SNOMED Code(s): 591476180 Code(s): G89.4 - CHRONIC PAIN SYNDROME Status: Acute Current Visit: Yes (4) STANISLAV (generalized anxiety disorder) SNOMED Code(s): 21574478 Code(s): F41.1 - GENERALIZED ANXIETY DISORDER Status: Acute Current Visit: Yes (5) MDD (major depressive disorder) SNOMED Code(s): 779876900 Code(s): F32.9 - MAJOR DEPRESSIVE DISORDER, SINGLE EPISODE, UNSPECIFIED Status: Acute Current Visit: Yes Qualifiers: Major depression recurrence: recurrent Psychotic features: with psychotic features (6) HTN (hypertension) SNOMED Code(s): 24372810 Code(s): I10 - ESSENTIAL (PRIMARY) HYPERTENSION Status: Acute Current Visit: Yes Qualifiers: Hypertension type: primary hypertension Qualified Code(s): I10 - Essential (primary) hypertension (7) COPD (chronic obstructive pulmonary disease) SNOMED Code(s): 71218727 Code(s): J44.9 - CHRONIC OBSTRUCTIVE PULMONARY DISEASE, UNSPECIFIED Status: Acute Current Visit: Yes (8) Weakness SNOMED Code(s): 01286946 Code(s): R53.1 - WEAKNESS Status: Acute Current Visit: Yes (9) RLS (restless legs syndrome) SNOMED Code(s): 70717107 Code(s): G25.81 - RESTLESS LEGS SYNDROME Status: Acute Current Visit: Yes (10) Hypokalemia SNOMED Code(s): 90206601 Code(s): E87.6 - HYPOKALEMIA Status: Acute Current Visit: Yes - Problem List Review Problem List Initiated/Reviewed/Updated: Yes - My Orders Last 24 Hours: My Active Orders 02/09/21 08:58 Benzonatate [Tessalon Perles] 200 mg PO TID PRN 02/09/21 09:00 Potassium Chloride [Klor-Con M20] 40 meq PO TID Venlafaxine [Effexor XR] 150 mg PO DAILY 02/09/21 14:49 rOPINIRole [Requip] 0.5 mg PO BID PRN 02/09/21 21:00 rOPINIRole [Requip] 0.5 mg PO BEDTIME 02/10/21 06:00 Pantoprazole [ProTONIX] 40 mg PO DAILY@0600 02/11/21 05:11 BASIC METABOLIC PANEL,BMP [CHEM] AM CBC WITH AUTO DIFF [HEME] AM - Plan Plan:: Potassium is improved to 4.4. Will stop the potassium supplementation. Continue physical therapy, and discharge home tomorrow.
[2021-02-10] MEDS: Sodium Chloride 0.9% 10 ML Syringe FLUSH PRN ×2 (10:04→17:40)
[2021-02-10] MEDS: Dexamethasone 4 MG/ML SDV IVPUSH SCH (10:04)
[2021-02-10] MEDS: Benzonatate 100 MG Cap PO PRN ×2 (15:22→21:21)
[2021-02-10] MEDS: cefTRIAXone 1 GM Vial IVPUSH SCH (17:40)
[2021-02-10] MEDS: Azithromycin 500 MG in Sodium Chloride 0.9% 250 ML IV SCH (17:46)
[2021-02-10] MEDS: Enoxaparin 40 MG/0.4 ML Syringe SUBCUT SCH (21:16)
[2021-02-10] MEDS: rOPINIRole 0.5 MG Tab PO SCH (21:17)
[2021-02-10] MEDS: Doxepin 25 MG Cap PO SCH (21:17)
[2021-02-10] MEDS: Montelukast 10 MG Tab PO SCH (21:18)
[2021-02-10] MEDS: Morphine 15 MG Tab.ER PO PRN (21:19)
[2021-02-11] MEDS: Pantoprazole 40 MG Tab.CR PO SCH (06:29)
[2021-02-11] MEDS: Albuterol/Ipratropium 3.0-0.5 MG/3 ML Neb Soln NEB SCH ×2 (06:29→11:41)
[2021-02-11] MEDS: Formoterol/Mometasone 200-5 MCG 8.8 GM Inhaler IH SCH (08:06)
[2021-02-11] MEDS: Docusate Sodium 100 MG Cap PO SCH (08:06)
[2021-02-11] MEDS: Fish Oil/Omega-3 Fatty Acids 1 Gm Cap PO SCH (08:07)
[2021-02-11] MEDS: Oxybutynin 5 MG Tab.ER PO SCH (08:07)
[2021-02-11] MEDS: Venlafaxine 150 MG Cap.ER PO SCH (08:07)
[2021-02-11] MEDS: Dexamethasone 4 MG/ML SDV IVPUSH SCH (09:11)
[2021-02-11] MEDS: Sodium Chloride 0.9% 10 ML Syringe FLUSH PRN (09:16)
--- NOTE | 2021-02-11 11:48 | DISCH ---
DISCHARGE DATE: 02/11/2021 REASON FOR ADMISSION: COVID-19 virus infection. SECONDARY DIAGNOSES: 1. Major depression. 2. Chronic obstructive pulmonary disease. 3. Hypertension. 4. Chronic pain syndrome. 5. Fibromyalgia. 6. Generalized weakness. BRIEF HISTORY AND HOSPITAL COURSE: A 61-year-old female who presented 2 to 3 weeks after having what she thought was cold symptoms that included coryza, cough, and fever. She also complained of extreme weakness. She was diagnosed with COVID-19 and admitted for IV Decadron and antibiotic coverage. She improved with physical therapy and the above regimen and is ready to go home today. She was deemed too far out to get remdesivir. I discharged her home on Augmentin 875 mg b.i.d. Continue with her regular home prescriptions and see her PCP, Tea Britton at the [facility]. I spent more than 35 minutes in the discharge of the patient. /[id number] AMELIA/ADAM
[2021-02-11 12:56] VITALS: BP 137/64; PULSE 86
== END 2021-02-11 13:30 | disposition home or self-care (01) | DRG 177 ==
LOC: FB.ED 13:03 → FB.MS 17:13
PROVIDERS: ADMIT Emergency Medicine; ATTEND Family Medicine
PROC: 3E0333Z Introduction of Anti-inflammatory into Peripheral Vein, Percutaneous Approach (ICD-10-PCS; principal; 2021-02-07)
DX: U07.1 COVID-19 (principal); J12.82 Pneumonia due to coronavirus disease 2019; E86.0 Dehydration; R53.1 Weakness; N39.0 Urinary tract infection, site not specified; J96.01 Acute respiratory failure with hypoxia; Z68.41 Body mass index [BMI] 40.0-44.9, adult; I49.9 Cardiac arrhythmia, unspecified; F41.1 Generalized anxiety disorder; J44.0 Chronic obstructive pulmonary disease with (acute) lower respiratory infection; F32.A Depression, unspecified; J44.9 Chronic obstructive pulmonary disease, unspecified; G89.29 Other chronic pain; M54.9 Dorsalgia, unspecified; I10 Essential (primary) hypertension; G89.4 Chronic pain syndrome; M79.7 Fibromyalgia; Z88.8 Allergy status to other drugs, medicaments and biological substances; H54.7 Unspecified visual loss; M19.90 Unspecified osteoarthritis, unspecified site; F41.9 Anxiety disorder, unspecified; E66.9 Obesity, unspecified; Z88.5 Allergy status to narcotic agent; Z91.09 Other allergy status, other than to drugs and biological substances; Z88.6 Allergy status to analgesic agent; Z79.899 Other long term (current) drug therapy; Z98.84 Bariatric surgery status; Z90.49 Acquired absence of other specified parts of digestive tract
CPT/HCPCS: 36415; 71275; 80053; 81001; 83605; 83735; 83880; 84484; 85025; 85379; 86140; 87040 ×2; 87086; 87186; 87635; 93005; 96374; 99285; A9270; J7040; Q9967; 80048; 87088; 88104; 90686; 94640; 97110-GP; 97116-GP; 97161-GP; 97165-GO; 97530-GO; 97535-GO; G0008; J0456; J0696; J1100; J1650; J2405; J7030; J7050; J7620-GY; U0002

== ENCOUNTER 2022-10-25 12:57 | Emergency (ER) | payer BC ==
[2022-10-25] MEDS ORDERED: Sodium Chloride 0.9% 10 ML Syringe FLUSH PRN (13:42)
[2022-10-25 13:52] LABS: BASOPHILS PERCENT AUTO 0.2 % (0.2-1.5); EOSINOPHILS ABSOLUTE AUTO 0.2 x10-3/uL (0.0-0.8); EOSINOPHILS PERCENT AUTO 1.2 % (0.6-8.1); HEMOGLOBIN 11.4 g/dL (11.4-15.5); LYMPHOCYTES ABSOLUTE AUTO 1.4 x10-3/uL (1.0-4.4); LYMPHOCYTES PERCENT AUTO 10.8 % (18.4-52.1); MEAN CORPUSCULAR HEMOGLOBIN 31.2 pg (23.9-33.9); MEAN CORPUSCULAR HGB CONC 32.6 g/dL (31.9-34.8); MEAN PLATELET VOLUME 10.6 fL (7.1-12.4); MONOCYTES ABSOLUTE AUTO 0.9 x10-3/uL (0.3-1.0); MONOCYTES PERCENT AUTO 7.4 % (4.4-15.7); NEUTROPHILS ABSOLUTE AUTO 10.3 x10-3/uL (1.5-6.3); NEUTROPHILS PERCENT AUTO 80.4 % (30.8-76.2); PLATELET COUNT,PLT 217 x10(3)uL (151-488); RED BLOOD CELL COUNT 3.65 x10(6)uL (3.60-5.20); WHITE BLOOD CELL COUNT,WBC 12.8 x10-3/uL (3.0-10.3)
[2022-10-25 14:02] LABS: TROPONIN I 9.7 pg/mL (4.0-60.3)
[2022-10-25 14:12] LABS: ALANINE AMINOTRANSFERASE,ALT 43 U/L (12-36); ALBUMIN 3.5 g/dL (3.2-4.6); ALKALINE PHOSPHATASE 163 IU/L (56-112); ASPARTATE AMNIOTRANSFERASE,AST 36 IU/L (5-25); BILIRUBIN TOTAL 0.3 mg/dL (0.1-1.3); BLOOD UREA NITROGEN,BUN 63 mg/dL (7-18); CALCIUM 8.8 mg/dL (8.6-10.2); CARBON DIOXIDE,CO2 23 mmol/L (21-32); CHLORIDE,CL 105 mmol/L (100-110); GLUCOSE RANDOM 125 mg/dL (80-116); MAGNESIUM 1.9 mg/dL (1.8-2.5); POTASSIUM,K 4.2 mmol/L (3.5-5.3); PROTEIN TOTAL,TP 7.1 g/dL (6.0-8.0); SODIUM,NA 142 mmol/L (135-145)
[2022-10-25 14:13] LABS: BUN/CREATININE RATIO 16.6 (9-20); CREATININE 3.8 mg/dL (0.55-1.02); EST CRCL DRUG DOSING (CG) 13.63 mL/min; ESTIMATED GFR 13 mL/min (>60)
[2022-10-25] MEDS ORDERED: Sodium Chloride 0.9% 1,000 ML IV ONE (14:14)
[2022-10-25 14:20] LABS: C-REACTIVE PROTEIN 3.5 mg/dL (<0.33)
[2022-10-25 14:26] LABS: BASE EXCESS VENOUS,POC -9 mmol/L (-2 - 3+); PCO2 VENOUS,POC 38 mmHg (41-51); PH VENOUS,POC 7.26 pH Units (7.32-7.43)
[2022-10-25 15:15] LABS: APPEARANCE,URINE CLOUDY (CLEAR); BACTERIA,URINE MANY (NS); BILIRUBIN,URINE SMALL (NEGATIVE); COLOR,URINE YELLOW (YELLOW); GLUCOSE,URINE NORMAL (NORMAL); HYALINE CASTS,URINE FEW (NS); KETONES,URINE NEGATIVE (NEGATIVE); LEUKOCYTE ESTERASE,URINE SMALL (NEGATIVE); NITRITE,URINE NEGATIVE (NEGATIVE); OCCULT BLOOD,URINE NEGATIVE (NEGATIVE); PROTEIN,URINE TRACE mg/dL (NEGATIVE); RBC,URINE 0-5 (0-5); SQUAMOUS EPITHELIAL CELLS,UR MODERATE (NS,R,O); UROBILINOGEN,URINE NORMAL (NEGATIVE); WBC,URINE 0-5 (0-5)
[2022-10-25 15:16] LABS: AMPHETAMINES SCREEN, URINE NEGATIVE (NEGATIVE); BENZODIAZEPINES SCREEN,URINE NEGATIVE (NEGATIVE); METHAMPHETAMINE SCREEN, URINE NEGATIVE (NEGATIVE); THC SCREEN,URINE NEGATIVE (NEGATIVE)
[2022-10-25 15:17] LABS: BARBITURATE SCREEN,URINE NEGATIVE (NEGATIVE); BUPRENORPHINE SCREEN,URINE NEGATIVE (NEGATIVE); METHADONE SCREEN, URINE NEGATIVE (NEGATIVE); OXYCODONE SCREEN,URINE POSITIVE (NEGATIVE); PROPOXYPHENE SCREEN,URINE NEGATIVE (NEGATIVE)
[2022-10-25] MEDS ORDERED: Sodium Chloride 0.9% 1,000 ML IV SCH (16:00)
[2022-10-25 17:08] VITALS: BP 97/56; PULSE 99
== END 2022-10-25 17:35 ==
LOC: FB.ED 12:57
DX: R53.1 Weakness (principal); R53.83 Other fatigue; N17.9 Acute kidney failure, unspecified; I10 Essential (primary) hypertension; E66.9 Obesity, unspecified; Z88.8 Allergy status to other drugs, medicaments and biological substances; Z88.5 Allergy status to narcotic agent; Z91.09 Other allergy status, other than to drugs and biological substances; Z88.1 Allergy status to other antibiotic agents; Z79.899 Other long term (current) drug therapy; Z68.41 Body mass index [BMI] 40.0-44.9, adult
CPT/HCPCS: 36415; 70450; 70551; 80053; 80307; 81001; 83605; 83735; 84484; 85025; 86140; 87086; 93005; 96360; 96361; 99285; J3490; J7030; 93010